=== PATIENT | male | born 1945 | race Hispanic/Latino ===

== ENCOUNTER 2019-12-04 11:40 | Emergency (ER) | payer OTHER ==
--- OUTSIDE RECORDS SUMMARY | 2019-12-04 11:43 | XMS REPORT ---
:1945 [facility] Address [address] [place] [address] Care Team Providers Name Role Phone Unavailable Unavailable Unavailable Payers Payer Name Policy Type Policy Number Effective Date Expiration Date Problems This patient has no known problems. Allergies, Adverse Reactions, Alerts Allergy Allergy Status Severity Reaction(s) Onset Inactive Treating Comments Name Type Date Date Clinician No Known DA Active U 2019-01 Allergies 00:00:0 0 Medications This patient has no known medications. Results Test Description Test Time Test Comments Text Results Atomic Results Result Comments BASIC METABOLIC PANEL 2019-01-12 06:15:00 Test Item Value Reference Range Comments SODIUM (test code=NA) 139 mmol/L 134-147 POTASSIUM (test code=K) 4.2 mmol/L 3.4-5.0 CHLORIDE (test code=CL) 108 mmol/L 100-108 CARBON DIOXIDE (test code=CO2) 25 mmol/L 21-32 ANION GAP (test code=GAP) 6.0 GAP calc 4.0-15.0 GLUCOSE (test code=GLU) 105 MG/DL 70-110 BLOOD UREA NITROGEN (test code=BUN) 31 MG/DL 7-18 GLOMERULAR FILTRATION RATE (test code=GFR) 53 estGFR >60 CREATININE (test code=CREAT) 1.4 MG/DL 0.8-1.3 CALCIUM (test code=CA) 8.6 MG/DL 8.5-10.1 CBC W/AUTO [id number] 06:07:00 Test Item Value Reference Range Comments WHITE BLOOD CELL (test code=WBC) 9.6 K/mm3 3.5-11.0 RED BLOOD CELL (test code=RBC) 4.14 M/mm3 4.70-6.10 HEMOGLOBIN (test code=HGB) 12.8 G/DL 12.3-15.9 HEMATOCRIT (test code=HCT) 40.0 % 35.8-46.7 MEAN CELL VOLUME (test code=MCV) 96.6 Fl 86.3-98.9 MEAN CELL HGB (test code=MCH) 30.9 pg 28.9-34.4 MEAN CELL HGB CONCETRATION (test code=MCHC) 32.0 G/DL 32.1-34.5 RED CELL DISTRIBUTION WIDTH (test code=RDW) 14.1 SD 11.5-14.5 PLATELET COUNT (test code=PLT) 212.0 K/mm3 150-450 MEAN PLATELET VOLUME (test code=MPV) 10.20 fL 7.0-9.6 NEUTROPHIL % (test code=NT%) 77.8 % 40-76 LYMPHOCYTE % (test code=LY%) 9.6 % 20.5-51.1 MONOCYTE % (test code=MO%) 10.9 % 1.7-9.3 EOSINOPHIL % (test code=EO%) 1.5 % 0.0-6.0 BASOPHIL % (test code=BA%) 0.2 % 0.0-2.0 NEUTROPHIL # (test code=NT#) 7.43 K/mm3 1.8-7.6 LYMPHOCYTE # (test code=LY#) 0.9 K/mm3 0.6-3.0 MONOCYTE # (test code=MO#) 1.0 K/mm3 0.2-1.5 EOSINOPHIL # (test code=EO#) 0.1 K/mm3 0.0-0.4 BASOPHIL # (test code=BA#) 0.0 K/mm3 0.0-0.2 MANUAL DIFF REQUIRED (test code=MDIFF) NO DIFF/SCN CRITERIA CBC W/AUTO [id number] 06:38:00 Test Item Value Reference Range Comments WHITE BLOOD CELL (test 12.1 K/mm3 3.5-11.0 code=WBC) RED BLOOD CELL (test code=RBC) 4.34 M/mm3 4.70-6.10 HEMOGLOBIN (test code=HGB) 13.5 G/DL 12.3-15.9 HEMATOCRIT (test code=HCT) 41.6 % 35.8-46.7 MEAN CELL VOLUME (test 95.9 Fl 86.3-98.9 code=MCV) MEAN CELL HGB (test code=MCH) 31.1 pg 28.9-34.4 MEAN CELL HGB CONCETRATION 32.5 G/DL 32.1-34.5 (test code=MCHC) RED CELL DISTRIBUTION WIDTH 13.9 SD 11.5-14.5 (test code=RDW) PLATELET COUNT (test code=PLT) 219.0 K/mm3 150-450 MEAN PLATELET VOLUME (test 9.90 fL 7.0-9.6 code=MPV) NEUTROPHIL % (test code=NT%) 86.9 % 40-76 LYMPHOCYTE % (test code=LY%) 4.4 % 20.5-51.1 MONOCYTE % (test code=MO%) 8.4 % 1.7-9.3 EOSINOPHIL % (test code=EO%) 0.2 % 0.0-6.0 BASOPHIL % (test code=BA%) 0.1 % 0.0-2.0 NEUTROPHIL # (test code=NT#) 10.52 K/mm3 1.8-7.6 LYMPHOCYTE # (test code=LY#) 0.5 K/mm3 0.6-3.0 MONOCYTE # (test code=MO#) 1.0 K/mm3 0.2-1.5 EOSINOPHIL # (test code=EO#) 0.0 K/mm3 0.0-0.4 BASOPHIL # (test code=BA#) 0.0 K/mm3 0.0-0.2 MANUAL DIFF REQUIRED (test NO DIFF/SCN CRITERIA SLIDE REVIEW CONSISTANT code=MDIFF) WITH AUTO DIFFERENTIAL. BASIC METABOLIC [id number] 05:41:00 Test Item Value Reference Range Comments SODIUM (test code=NA) 140 mmol/L 134-147 POTASSIUM (test code=K) 4.5 mmol/L 3.4-5.0 CHLORIDE (test code=CL) 110 mmol/L 100-108 CARBON DIOXIDE (test code=CO2) 24 mmol/L 21-32 ANION GAP (test code=GAP) 6.0 GAP calc 4.0-15.0 GLUCOSE (test code=GLU) 124 MG/DL 70-110 BLOOD UREA NITROGEN (test code=BUN) 25 MG/DL 7-18 GLOMERULAR FILTRATION RATE (test >=60 max estimate estGFR >60 code=GFR) CREATININE (test code=CREAT) 1.2 MG/DL 0.8-1.3 CALCIUM (test code=CA) 8.6 MG/DL 8.5-10.1 CBC W/AUTO [id number] 05:35:00 Test Item Value Reference Range Comments WHITE BLOOD CELL (test code=WBC) 12.1 K/mm3 3.5-11.0 RED BLOOD CELL (test code=RBC) 4.34 M/mm3 4.70-6.10 HEMOGLOBIN (test code=HGB) 13.5 G/DL 12.3-15.9 HEMATOCRIT (test code=HCT) 41.6 % 35.8-46.7 MEAN CELL VOLUME (test code=MCV) 95.9 Fl 86.3-98.9 MEAN CELL HGB (test code=MCH) 31.1 pg 28.9-34.4 MEAN CELL HGB CONCETRATION (test code=MCHC) 32.5 G/DL 32.1-34.5 RED CELL DISTRIBUTION WIDTH (test code=RDW) 13.9 SD 11.5-14.5 PLATELET COUNT (test code=PLT) 219.0 K/mm3 150-450 MEAN PLATELET VOLUME (test code=MPV) 9.90 fL 7.0-9.6 NEUTROPHIL % (test code=NT%) % 40-76 LYMPHOCYTE % (test code=LY%) % 20.5-51.1 MONOCYTE % (test code=MO%) % 1.7-9.3 EOSINOPHIL % (test code=EO%) % 0.0-6.0 BASOPHIL % (test code=BA%) % 0.0-2.0 NEUTROPHIL # (test code=NT#) K/mm3 1.8-7.6 LYMPHOCYTE # (test code=LY#) K/mm3 0.6-3.0 MONOCYTE # (test code=MO#) K/mm3 0.2-1.5 EOSINOPHIL # (test code=EO#) K/mm3 0.0-0.4 BASOPHIL # (test code=BA#) K/mm3 0.0-0.2 MANUAL DIFF REQUIRED (test code=MDIFF) DIFF/SCN CRITERIA COAGULATION TIME [id number] 21:35:00 Test Item Value Reference Range Comments COAGULATION TIME ACTIVATED (test code=ACT) 160 SECistat 74-125 COAGULATION TIME [id number] 20:17:00 Test Item Value Reference Range Comments COAGULATION TIME ACTIVATED (test code=ACT) 176 SECistat 74-125 CHEMISTRY 8 [id number] 18:59:00 Test Item Value Reference Range Comments ISTAT-SODIUM (test code=NAP) mmol/L 135-146 ISTAT-POTASSIUM (test code=KP) mmol/L 3.5-4.9 ISTAT-CHLORIDE (test code=CLP) mmol/L 98-109 ISTAT-CARBON DIOXIDE (test code=ISTAT-CO2) mmol/L 24-29 ISTAT CALCIUM IONIZED (test code=ISTAT-KATEY) mmol/L 1.12-1.32 ISTAT-GLUCOSE (test code=GLUP) mg/dL 70-105 ISTAT-BUN (test code=BUNP) mg/dL 8-26 BEDSIDE CREATININE (test code=CREATBED) mg/dL 0.6-1.3 GLOMERULAR FILTRATION RATE POC (test code=GFRBED) 63 42-98 CHEMISTRY 8 [id number] 18:59:00 Test Item Value Reference Range Comments ISTAT-SODIUM (test code=NAP) 142 mmol/L 135-146 ISTAT-POTASSIUM (test code=KP) 5.5 mmol/L 3.5-4.9 ISTAT-CHLORIDE (test code=CLP) 102 mmol/L 98-109 ISTAT-CARBON DIOXIDE (test code=ISTAT-CO2) 28 mmol/L 24-29 ISTAT CALCIUM IONIZED (test code=ISTAT-KATEY) 1.32 mmol/L 1.12-1.32 ISTAT-GLUCOSE (test code=GLUP) 165 mg/dL 70-105 ISTAT-BUN (test code=BUNP) 27 mg/dL 8-26 BEDSIDE CREATININE (test code=CREATBED) 1.2 mg/dL 0.6-1.3 GLOMERULAR FILTRATION RATE POC (test 63 42-98 code=GFRBED) [id number] 18:30:00 Test Item Value Reference Range Comments TROPONIN-I (test 38.700 NG/ML 0.000-0.045 Negative: </=0.045 Positive: code=TROPI) >/=0.046 Correlation with serial results, other cardiac markers, and clinical findings is necessary to determine the clinical significance of this result. Quantitative results using different methodologies should not be compared to one another as numerical results may varyby method. Completed by Nursing: NOBASIC METABOLIC [id number] 18:18:00 Test Item Value Reference Range Comments SODIUM (test code=NA) 141 mmol/L 134-147 POTASSIUM (test code=K) 4.4 mmol/L 3.4-5.0 CHLORIDE (test code=CL) 110 mmol/L 100-108 CARBON DIOXIDE (test code=CO2) 25 mmol/L 21-32 ANION GAP (test code=GAP) 6.0 GAP calc 4.0-15.0 GLUCOSE (test code=GLU) 132 MG/DL 70-110 BLOOD UREA NITROGEN (test code=BUN) 23 MG/DL 7-18 GLOMERULAR FILTRATION RATE (test >=60 max estimate estGFR >60 code=GFR) CREATININE (test code=CREAT) 1.2 MG/DL 0.8-1.3 CALCIUM (test code=CA) 8.5 MG/DL 8.5-10.1 COAGULATION TIME [id number] 16:25:00 Test Item Value Reference Range Comments COAGULATION TIME ACTIVATED (test code=ACT) 261 SECistat 74-125 HEPATIC FUNCTION [id number] 15:23:00 Test Item Value Reference Range Comments TOTAL PROTEIN (test code=PROT) 8.6 G/DL 6.4-8.2 ALBUMIN (test code=ALB) 3.8 G/DL 3.4-5.0 BILIRUBIN TOTAL (test code=BILT) 0.50 MG/DL 0.2-1.2 BILIRUBIN DIRECT (test code=BILD) 0.20 MG/DL 0.00-0.30 BILIRUBIN INDIRECT (test code=BILIND) 0.30 MG/DL 0.2-1.2 SGOT/AST (test code=AST) 18 Unit/L 15-37 SGPT/ALT (test code=ALT) 21 Unit/L 12-78 ALKALINE PHOSPHATASE TOTAL (test code=ALKP) 66 Unit/L 50-136 PROTHROMBIN [id number] 15:20:00 Test Item Value Reference Range Comments PT PATIENT (test code=PTP) 13.3 SECONDS 9.3-12.9 INTERNATIONAL NORMAL RATIO (test code=INR) 1.15 INR Unit 0.8-1.2 CBC W/AUTO [id number] 15:09:00 Test Item Value Reference Range Comments WHITE BLOOD CELL (test code=WBC) 11.4 K/mm3 3.5-11.0 RED BLOOD CELL (test code=RBC) 5.30 M/mm3 4.70-6.10 HEMOGLOBIN (test code=HGB) 16.3 G/DL 12.3-15.9 HEMATOCRIT (test code=HCT) 50.6 % 35.8-46.7 MEAN CELL VOLUME (test code=MCV) 95.5 Fl 86.3-98.9 MEAN CELL HGB (test code=MCH) 30.8 pg 28.9-34.4 MEAN CELL HGB CONCETRATION (test code=MCHC) 32.2 G/DL 32.1-34.5 RED CELL DISTRIBUTION WIDTH (test code=RDW) 14.0 SD 11.5-14.5 PLATELET COUNT (test code=PLT) 242.0 K/mm3 150-450 MEAN PLATELET VOLUME (test code=MPV) 10.10 fL 7.0-9.6 NEUTROPHIL % (test code=NT%) 84.2 % 40-76 LYMPHOCYTE % (test code=LY%) 9.2 % 20.5-51.1 MONOCYTE % (test code=MO%) 5.7 % 1.7-9.3 EOSINOPHIL % (test code=EO%) 0.7 % 0.0-6.0 BASOPHIL % (test code=BA%) 0.2 % 0.0-2.0 NEUTROPHIL # (test code=NT#) 9.61 K/mm3 1.8-7.6 LYMPHOCYTE # (test code=LY#) 1.1 K/mm3 0.6-3.0 MONOCYTE # (test code=MO#) 0.7 K/mm3 0.2-1.5 EOSINOPHIL # (test code=EO#) 0.1 K/mm3 0.0-0.4 BASOPHIL # (test code=BA#) 0.0 K/mm3 0.0-0.2 MANUAL DIFF REQUIRED (test code=MDIFF) NO DIFF/SCN CRITERIA TROPONIN I [id number] 15:06:00 Test Item Value Reference Range Comments TROPONIN I RAPID (test 0.06 ng/mL 0.00-0.08 - The use of serial sampling code=TROPIRAP) and testing protocol is a recommended practice- An elevated troponin level alone is often not sufficient for diagnosis of myocardial infarction. - XR CHEST 1 [id number] 14:59:00 Name: PRICILA EDWARDS [place] : 1945 Age/S: 73 / M [id number] Unit #: [id number] Loc: [place] [address] Phys: Nate Mobley MD Acct: [id number] Dis Date: Status: PRE ER PHONE #: [phone] Exam Date: 01/10/2019 1456 FAX #: Reason: weakness, STEMI EXAMS: CPT: [id number] XR CHEST 1 V [id number] Fluoro Time: DAP (Gy m2): Air Kerma (mGy): Single View Chest. Location: B2 Clinical Indication: 73-year-old with weakness and has T elevation [place] Comparison: None Findings: An AP view of the chest was obtained. The heart is enlarged. There is prominence of the vascular pedicle, particularly its right, paratracheal aspect. There is mild prominence of the central vasculature. No pneumothorax. No obvious pleural effusion. No acute osseous abnormality. Impression: 1. Cardiomegaly and mild central vascular prominence/congestion. 2. Prominence of the vascular pedicle is noted. This could potentially be the result of aortic tortuosity, ectasia, or aneurysm. Mediastinal mass is also a consideration. This may be better characterized with contrast-enhanced CT. at 4337 Reported and signed by: Blake Scott M.D. CC : Nate Mobley MD PAGE 1 Signed Report Name: PRICILA EDWARDS [place] : 1945 Age/S: 73 / M [id number] Unit #: [id number] Loc: [place] [address] Phys: Nate Mobley MD Acct: [id number] Dis Date: Status: PRE ER PHONE # : [phone] Exam Date: 01/10/2019 5774 FAX #: Reason: weakness, STEMI EXAMS: CPT: [id number] XR CHEST 1 V [id number] Fluoro Time: DAP (Gy m2): Air Kerma ( mGy): <Continued> Technologist: Nahomy Rivas, RT(R); ... Trnscb Date/Time: 01/10/2019 (0039) [email or web address] Orig Print D/T: S: 01/10/2019 (7610) PAGE 2 Signed Report
--- NOTE | 2019-12-04 12:08 | EDPHYS ---
Physician Documentation [facility] Name: Ag Goss Age: 73 yrs Sex: Male : 1945 Arrival Date: 12/04/2019 Time: 11:43 Bed 24 Private MD: ED Physician Sergio Alejo HPI: 12/03 12:26 This 73 yrs old Male presents to ER via Unassigned with complaints of Mouth snw Problem. 12:26 The patient presents with broken tooth/teeth, pain, swelling. The problem is located in snw the upper left first molar, upper left second molar, lower left third molar, lower left second molar and lower left first molar. Onset: The symptoms/episode began/occurred gradually, 3 day(s) ago, and became worse and became persistent. Duration: The symptoms are continuous. Severity of symptoms: At their worst the symptoms were moderate. It is unknown whether or not the patient has had similar symptoms in the past. It is unknown whether or not the patient has recently seen a physician. needs to see dental surgery as soon as possible. Historical: - Allergies: 12:00 No Known Allergies; vc - PMHx: 12:00 None; vc - PSHx: 12:00 None; vc - Immunization history:: Adult Immunizations up to date. - Social history:: Smoking status: Patient denies any tobacco usage or history of. ROS: 12:25 Constitutional: Negative for fever, chills, and weight loss, Eyes: Negative for injury, snw pain, redness, and discharge, Neck: Negative for injury, pain, and swelling, Cardiovascular: Negative for chest pain, palpitations, and edema, Respiratory: Negative for shortness of breath, cough, wheezing, and pleuritic chest pain, Abdomen/GI: Negative for abdominal pain, nausea, vomiting, diarrhea, and constipation, Back: Negative for injury and pain, : Negative for injury, bleeding, discharge, and swelling, MS/Extremity: Negative for injury and deformity, Skin: Negative for injury, rash, and discoloration, Neuro: Negative for headache, weakness, numbness, tingling, and seizure, Psych: Negative for depression, anxiety, suicide ideation, homicidal ideation, and hallucinations. 12:25 ENT: Positive for dental pain, Teeth pain left mandibular edema. Exam: 12:17 Constitutional: This is a well developed, well nourished patient who is awake, alert, snw and in no acute distress. Eyes: Pupils equal round and reactive to light, extra-ocular motions intact. Lids and lashes normal. Conjunctiva and sclera are non-icteric and not injected. Cornea within normal limits. Periorbital areas with no swelling, redness, or edema. Neck: Trachea midline, no thyromegaly or masses palpated, and no cervical lymphadenopathy. Supple, full range of motion without nuchal rigidity, or vertebral point tenderness. No Meningismus. Chest/axilla: Normal chest wall appearance and motion. Nontender with no deformity. No lesions are appreciated. Cardiovascular: Regular rate and rhythm with a normal S1 and S2. No gallops, murmurs, or rubs. Normal PMI, no JVD. No pulse deficits. Respiratory: Lungs have equal breath sounds bilaterally, clear to auscultation and percussion. No rales, rhonchi or wheezes noted. No increased work of breathing, no retractions or nasal flaring. Abdomen/GI: Soft, non-tender, with normal bowel sounds. No distension or tympany. No guarding or rebound. No evidence of tenderness throughout. Back: No spinal tenderness. No costovertebral tenderness. Full range of motion. Skin: Warm, dry with normal turgor. Normal color with no rashes, no lesions, and no evidence of cellulitis. 12:17 MS/ Extremity: Pulses equal, no cyanosis. Neurovascular intact. Full, normal range of motion. Neuro: Awake and alert, GCS 15, oriented to person, place, time, and situation. Cranial nerves II-XII grossly intact. Motor strength 5/5 in all extremities. Sensory grossly intact. Cerebellar exam normal. Normal gait. 12:17 Head/face: Noted is swelling, that is moderate, of the left jaw. 12:17 ENT: TM's: are normal, Nose: is normal, Mouth: is normal, Posterior pharynx: is normal, Dental exam: dental caries, that is moderate, that is severe, diffusely, gum swelling, that is mild, left mandibular edema and molar decay to gingiva., Voice: is normal. Vital Signs: 12:11 BP 142 / 101; Pulse 96; Resp 16; Temp 98.8(O); Pulse Ox 96% ; lt1 12:31 BP 139 / 86; Pulse 92; vc MDM: 11:59 Patient medically screened. snw 12:26 Data reviewed: vital signs, nurses notes. Data interpreted: Pulse oximetry: on room air snw is 96 %. Interpretation: acceptable. Counseling: I had a detailed discussion with the patient and/or guardian regarding: the historical points, exam findings, and any diagnostic results supporting the discharge/admit diagnosis, the need for outpatient follow up, to return to the emergency department if symptoms worsen or persist or if there are any questions or concerns that arise at home. Special discussion: Based on the history and exam findings, there is no indication for further emergent testing or inpatient evaluation. I discussed with the patient/guardian the need to see a dentist for further evaluation of the symptoms. Administered Medications: 12:24 Drug: [place] 5 mg-325 mg 1 tabs Route: PO; vc 12:25 Follow up: Response: No adverse reaction; Medication administered at discharge. vc 12:24 Drug: Clindamycin 300 mg Route: PO; vc 12:25 Follow up: Response: No adverse reaction; Medication administered at discharge. vc Disposition: 14:37 Co-signature as Attending Physician, Sergio Alejo MD. rn Disposition: 12/04/19 12:07 Discharged to Home. Impression: Dental caries, Unspecified diseases of pulp and periapical tissues. - Condition is Stable. - Discharge Instructions: Dental Abscess, Dental Pain, Edema, Diet and Dental Disease, Cryotherapy, Preventive Dental Care, Adult. - Prescriptions for chlorhexidine gluconate 0.12 % Mucous Membrane mouthwash - place 15 milliliter by MUCOUS MEMBRANE route 2 times per day after brushing teeth, swish in mouth for 30 seconds then spit out; 480 milliliter. Clindamycin HCl 300 mg Oral Capsule - take 1 capsule by ORAL route every 6 hours for 10 days; 40 capsule. Diclofenac Sodium 75 mg Oral Tablet Sustained Release - take 1 tablet by ORAL route 2 times per day; 30 tablet. - Medication Reconciliation Form, Thank You Letter, Antibiotic Education, Prescription Opioid Use form. - Follow up: Emergency Department; When: As needed; Reason: Worsening of condition. Follow up: Private Physician; When: 2 - 3 days; Reason: Recheck today's complaints, Continuance of care, Re-evaluation by your physician. Signatures: Marlee Arenas FNP-C BANKING REPRESENTATIVE-Csnw Sergio Alejo MD MD rn Zabrina Nicole RN RN vc Corrections: (The following items were deleted from the chart) 12:32 12:07 12/04/2019 12:07 Discharged to Home. Impression: Dental caries; Unspecified vc diseases of pulp and periapical tissues. Condition is Stable. Forms are Medication Reconciliation Form, Thank You Letter, Antibiotic Education, Prescription Opioid Use. Follow up: Emergency Department; When: As needed; Reason: Worsening of condition. Follow up: Private Physician; When: 2 - 3 days; Reason: Recheck today's complaints, Continuance of care, Re-evaluation by your physician. snw
[2019-12-04] MEDS ORDERED: HYDROCODONE/APAP 5/325 MG TAB ONE (12:25)
--- NOTE | 2019-12-04 12:33 | ER ---
Nurse's Notes [facility] Name: Ag Goss Age: 73 yrs Sex: Male : 1945 Arrival Date: 12/04/2019 Time: 11:43 Bed 24 Private MD: Diagnosis: Dental caries;Unspecified diseases of pulp and periapical tissues Presentation: 12/03 12:00 Chief complaint: Patient states: "The left side of my mouth hurts.". Coronavirus vc screen: Patient denies fever greater than 100.4F, cough, shortness of breath, or difficulty breathing. Ebola Screen: No symptoms or risks identified at this time. Initial Sepsis Screen: Does the patient meet any 2 criteria? No. Patient's initial sepsis screen is negative. Does the patient have a suspected source of infection? Yes: Other: tooth. Risk Assessment: Do you want to hurt yourself or someone else? Patient reports no desire to harm self or others. 12:00 Acuity: JANAE 4 vc 12:00 Method Of Arrival: Ambulatory vc Triage Assessment: 12:00 General: Appears in no apparent distress. Behavior is calm, cooperative, appropriate vc for age. Pain: Complains of pain in lower left first molar and lower left second molar and lower left third molar and upper left second molar and upper left first molar. EENT: Reports pain. Neuro: Level of Consciousness is awake, alert, obeys commands, Oriented to person, place, time, situation. Cardiovascular: Capillary refill < 3 seconds Patient's skin is warm and dry. Respiratory: Respiratory effort is even, unlabored, Respiratory pattern is regular, symmetrical. Historical: - Allergies: 12:00 No Known Allergies; vc - PMHx: 12:00 None; vc - PSHx: 12:00 None; vc - Immunization history:: Adult Immunizations up to date. - Social history:: Smoking status: Patient denies any tobacco usage or history of. Screenin:00 Abuse screen: Denies threats or abuse. Nutritional screening: No deficits noted. vc Tuberculosis screening: No symptoms or risk factors identified. Fall Risk None identified. Assessment: 12:00 General: Appears in no apparent distress. uncomfortable, Behavior is calm, cooperative, vc appropriate for age. Pain: Complains of pain in lower left first molar and lower left second molar and lower left third molar and upper left second molar and upper left first molar. Neuro: Level of Consciousness is awake, alert, obeys commands. Cardiovascular: Capillary refill < 3 seconds Patient's skin is warm and dry. Respiratory: Airway is patent Respiratory pattern is regular, symmetrical. EENT: No signs and/or symptoms were reported regarding the EENT system. Vital Signs: 12:11 BP 142 / 101; Pulse 96; Resp 16; Temp 98.8(O); Pulse Ox 96% ; lt1 12:31 BP 139 / 86; Pulse 92; vc ED Course: 11:43 Patient arrived in ED. ag5 11:55 Marlee Arenas FNP-C is [facility]. snw 11:55 Sergio Alejo MD is Attending Physician. snw 12:00 Arm band placed on. vc 12:01 Zabrina Nicole, RN is Primary Nurse. vc 12:30 No provider procedures requiring assistance completed. Patient did not have IV access vc during this emergency room visit. 20:12 Triage completed. vc Administered Medications: 12:24 Drug: [place] 5 mg-325 mg 1 tabs Route: PO; vc 12:25 Follow up: Response: No adverse reaction; Medication administered at discharge. vc 12:24 Drug: Clindamycin 300 mg Route: PO; vc 12:25 Follow up: Response: No adverse reaction; Medication administered at discharge. vc Outcome: 12:07 Discharge ordered by . snw 12:30 Discharged to home ambulatory. vc 12:30 Condition: good 12:30 Discharge instructions given to patient, Instructed on discharge instructions, follow up and referral plans. medication usage, Demonstrated understanding of instructions, follow-up care, medications, Prescriptions given X 3. 12:32 Patient left the ED. vc Signatures: Marlee Arenas FNP-C DATABASE REPORTING CONSULTANT-Csnw Wanda Lemus ag5 Elmira Nickerson lt1 Zabrina Nicole, RN RN vc
[2019-12-04 12:36] VITALS: TEMP 98.8; O2SAT 96
[2019-12-04 12:37] VITALS: BP 139/86
== END 2019-12-04 12:32 | disposition home or self-care (01) ==
LOC: ER 11:40
DX: K04.90 Unspecified diseases of pulp and periapical tissues (principal)
CPT/HCPCS: 99283

== ENCOUNTER 2025-01-27 15:57 | Emergency (ER) | payer OTHER ==
--- OUTSIDE RECORDS SUMMARY | 2025-01-27 16:01 | XMS REPORT | Continuity of Care Document ---
Author Name Unknown Address [address] [facility] [address] [place] [address] Organization [facility] Address [address] 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 Name Role Phone Yao Thao Primary Care Physician [phone] Romeo Jeronimo Attending Clinician Unavailable Aydee Esquivel Attending Clinician Unavailable GLYNN MCDONALD Attending Clinician Unavail able Nurse, Adc Pob Immunization Attending Clinician Unavailable Glynn Mcdonald DO Attending Clinician [phone] CHONG ISLAS Attending Clinician Unavailable Payers Payer Name Policy Type Policy Number Effective Date Expirati on Date Source MEDICARE PART A \T\ [id number] 2009 00:00:00 [place]ICAID [place] [id number] 2011 00:00:00 Problems Condition Name Condition Details Condition Category Status Onset Date Resolution Date Last Treatment Date Treating Clinician Comments Source [id number] Essential hypertensi on Problem [facility] [id number] Coronary artery disease involving [place] coronary artery of [place] heart without angina pectoris Problem [facility] Allergies, Adverse Reactions, Alerts Allergy Name Allergy Type Status Severity Reaction(s) Onset Date Inactive Date Treating Clinician Comments Source No Known Allergie s DA Active U 01-10 00:00: 00 [facility] NO KNOWN ALLERGIE S Drug Class Active [facility] [id number] Drug allergy Active Unknown [facility] pork allergen ic extract pork allergen ic extract Active Unknown [facility] Social History Social Habit Start Date Stop Date Quantity Comments Source Sex Assigned At [facility] History of Tobacco Use 1995-09-10 00:00:00 [facility] Smoking Status Start Date Stop Date Source Never Smoker [facility] Former Smoker 2024-11-14 00:00:00 2024-11-14 00:00:00 [facility] Unknown if ever smoked [facility] Medications Ordered Medication Name Filled Medication Name Start Date Stop Date Current Medication? Ordering Clinician Indication Dosage Frequency Signature (SIG) Comments Components Source Furosemide 20 MG Furosemide 20 MG 12-13 00:00: 00 No 1{table t} QD Furosemide 20 MG OMEGA-3 FATTY ACIDS/FISH OIL (OMEGA 3 FISH OIL ORAL) 03-10 10:58: 18 Yes Take by mouth. [facility] Cetirizine (ZYRTEC) 10 mg capsule 03-10 10:58: 18 Yes 10mg Take 10 mg by mouth. [facility] metoprolol succinate XL (TOPROL XL) 50 mg 24 hr tablet 03-10 10:58: 18 Yes 50mg Take 50 mg by mouth daily. [facility] diclofenac sodium (PENNSAID) 20 mg/gram /actuation( 2 %) sopm 03-10 10:58: 18 Yes Apply to area(s). [facility] traMADOL (ULTRAM) 50 mg tablet 03-10 10:58: 18 Yes 50mg Take 50 mg by mouth every 6 (six) hours as needed. [facility] rivaroxaban (XARELTO) 20 mg tablet 03-10 10:58: 18 Yes 20mg Take 20 mg by mouth. [facility] amLODIPine Besylate 5 MG amLODIPine Besylate 5 MG No 1{table t} QD amLODIPine Besylate 5 MG Losartan Potassium 25 MG Losartan Potassium 25 MG No Losartan Potassium 25 MG Aspirin 81 Aspirin 81 No Aspirin 81 Metoprolol Succinate ER 100 MG Metoprolol Succinate ER 100 MG No 1{table t} QD Metoprolol Succinate ER 100 MG Vital Signs Vital Name Observation Time Observation Value Comments S felisha height 2024-12-13 11:45:00 68 [in_i] Commo n [facility] weight 2024-12-13 11:45:00 217.6 [lb_av] Co [facility] temperature 2024-12-13 11:45:00 97.4 [degF] Com [facility] bmi 2024-12-13 11:45:00 33.08 kg/m2 Comm on [facility] oximetry 2024-12-13 11:45:00 92 % Commo n [facility] blood pressure systolic 2024-12-13 11:45:00 146 mm[Hg] Common [facility] blood pressure diastolic 2024-12-13 11:45:00 88 mm[Hg] [facility] height 2024-11-14 14:45:00 68 [in_i] Commo n [facility] weight 2024-11-14 14:45:00 220.6 [lb_av] Co [facility] temperature 2024-11-14 14:45:00 97.5 [degF] Com [facility] bmi 2024-11-14 14:45:00 33.54 kg/m2 Comm on [facility] oximetry 2024-11-14 14:45:00 95 % Commo n [facility] blood pressure systolic 2024-11-14 14:45:00 137 mm[Hg] Common [facility] blood pressure diastolic 2024-11-14 14:45:00 76 mm[Hg] [facility] Procedures Procedure Date / Time Performed Performing Clinicia n Source SARS-COV-2 COVID-19 VACCINE,0.3ML,IM (PFIZER) 2021-06-14 20:23:51 Doctor Unassigned, [place] [facility] Encounters Start Date/Time End Date/Time Encounter Type Admission Type Attending Clinicians Care Facility Care Department Encounter ID Source 2024-12-11 14:44:01 Outpatient Romeo Jeronimo STLMLC STLC [id number] [facility] 2024-11-14 14:51:01 Outpatient Aydee Esquivel ST[facility] [id number] [facility] 2025-01-23 00:00:00 2025-01-23 00:00:00 (TEL) STLMLC STLMLC [id number] [facility] 2024-12-13 00:00:00 2024-12-13 00:00:00 OFFICE VISIT ESTAB PT LEVEL 4 STLMLC STLMLC [id number] [facility] 2024-12-02 00:00:00 2024-12-02 00:00:00 (TEL) STLMLC STLMLC [id number] [facility] 2024-11-14 00:00:00 2024-11-14 00:00:00 OFFICE VISIT NEW PT LEVEL 4 STLMLC STLMLC [id number] [facility] 2021-06-14 15:30:00 2021-06-14 15:30:00 Outpatient GLYNN CARMONA [facility] [id number] [facility] 2021-06-14 15:20:53 2021-06-14 15:21:02 Imm/Inj Visit Nurse, Ld [place] [facility] [id number] [facility] [id number] [facility] 2020-11-23 13:10:00 2020-11-23 13:10:00 Outpatient CHONG TOWNSEND [facility] [id number] [facility] 2020-11-23 13:10:00 2020-11-23 13:10:00 Outpatient CHONG TOWNSEND [facility] [id number] [facility] 2020-11-02 10:10:00 2020-11-02 10:10:00 Outpatient [facility] [id number] [facility] 2020-11-02 10:10:00 2020-11-02 10:10:00 Outpatient CHONG TOWNSEND [facility] [id number] [facility] Results Test Description Test Time Test Comments Results Result Co mments Source CBC W/AUTO [id number] 06:07:00* Test Item Value Reference Range Interpretation Comme nts WHITE BLOOD CELL (test code = WBC) 9.6 K/mm3 3.5-11.0 N RED BLOOD CELL (test code = RBC) 4.14 M/mm3 4.70-6.10 L HEMOGLOBIN (test code = HGB) 12.8 G/DL 12.3-15.9 N HEMATOCRIT (test code = HCT) 40.0 % 35.8-46.7 N MEAN CELL VOLUME (test code = MCV) 96.6 Fl 86.3-98.9 N MEAN CELL HGB (test code = MCH) 30.9 pg 28.9-34.4 N MEAN CELL HGB CONCETRATION ( test code = MCHC) 32.0 G/DL 32.1-34.5 L RED CELL DISTRIBUTION WIDTH (test code = RDW) 14.1 SD 11.5-14.5 N PLATELET COUNT (test code = PLT) 212.0 K/mm3 150-450 N MEAN PLATELET VOLUME (test c ode = MPV) 10.20 fL 7.0-9.6 H NEUTROPHIL % (test code = NT%) 77.8 % 40-76 H LYMPHOCYTE % (test code = LY%) 9.6 % 20.5-51.1 L MONOCYTE % (test code = MO%) 10.9 % 1.7-9.3 H EOSINOPHIL % (test code = EO%) 1.5 % 0.0-6.0 N BASOPHIL % (test code = BA%) 0.2 % 0.0-2.0 N NEUTROPHIL # (test code = NT#) 7.43 K/mm3 1.8-7.6 N LYMPHOCYTE # (test code = LY#) 0.9 K/mm3 0.6-3.0 N MONOCYTE # (test code = MO#) 1.0 K/mm3 0.2-1.5 N EOSINOPHIL # (test code = EO#) 0.1 K/mm3 0.0-0.4 N BASOPHIL # (test code = BA#) 0.0 K/mm3 0.0-0.2 N MANUAL DIFF REQUIRED (test c ode = MDIFF) NO DIFF/SCN CRITERIA CBC W/AUTO [id number] 06:38:00* Test Item Value Reference Range Interpretation Comme nts WHITE BLOOD CELL (test code = WBC) 12.1 K/mm3 3.5-11.0 H RED BLOOD CELL (test code = RBC) 4.34 M/mm3 4.70-6.10 L HEMOGLOBIN (test code = HGB) 13.5 G/DL 12.3-15.9 N HEMATOCRIT (test code = HCT) 41.6 % 35.8-46.7 N MEAN CELL VOLUME (test code = MCV) 95.9 Fl 86.3-98.9 N MEAN CELL HGB (test code = MCH) 31.1 pg 28.9-34.4 N MEAN CELL HGB CONCETRATION (test code = MCHC) 32.5 G/DL 32.1-34.5 N RED CELL DISTRIBUTION WIDTH (test code = RDW) 13.9 SD 11.5-14.5 N PLATELET COUNT (test code = PLT) 219.0 K/mm3 150-450 N MEAN PLATELET VOLUME (test code = MPV) 9.90 fL 7.0-9.6 H NEUTROPHIL % (test code = NT%) 86.9 % 40-76 H LYMPHOCYTE % (test code = LY%) 4.4 % 20.5-51.1 L MONOCYTE % (test code = MO%) 8.4 % 1.7-9.3 N EOSINOPHIL % (test code = EO%) 0.2 % 0.0-6.0 N BASOPHIL % (test code = BA%) 0.1 % 0.0-2.0 N NEUTROPHIL # (test code = NT#) 10.52 K/mm3 1.8-7.6 H LYMPHOCYTE # (test code = LY#) 0.5 K/mm3 0.6-3.0 L MONOCYTE # (test code = MO#) 1.0 K/mm3 0.2-1.5 N EOSINOPHIL # (test code = EO#) 0.0 K/mm3 0.0-0.4 N BASOPHIL # (test code = BA#) 0.0 K/mm3 0.0-0.2 N MANUAL DIFF REQUIRED (test code = MDIFF) NO DIFF/SCN CRITERIA SLIDE REVIEW CONSISTANT WITH AUTO DIFFERENTIAL. BASIC METABOLIC [id number] 05:41:00* Test Item Value Reference Range Interpretation Comme nts SODIUM (test code = NA) 140 mmol/L 134-147 N POTASSIUM (test code = K) 4.5 mmol/L 3.4-5.0 N CHLORIDE (test code = CL) 110 mmol/L 100-108 H CARBON DIOXIDE (test code = CO2) 24 mmol/L 21-32 N ANION GAP (test code = GAP) 6.0 GAP calc 4.0-15.0 N GLUCOSE (test code = GLU) 124 MG/DL 70-110 H BLOOD UREA NITROGEN (test code = BUN) 25 MG/DL 7-18 H GLOMERULAR FILTRATION RATE (test code = GFR) >=60 max estimate estGFR >60 CREATININE (test code = CREAT) 1.2 MG/DL 0.8-1.3 N CALCIUM (test code = CA) 8.6 MG/DL 8.5-10.1 N CBC W/AUTO [id number] 05:35:00* Test Item Value Reference Range Interpretation Comme nts WHITE BLOOD CELL (test code = WBC) 12.1 K/mm3 3.5-11.0 H RED BLOOD CELL (test code = RBC) 4.34 M/mm3 4.70-6.10 L HEMOGLOBIN (test code = HGB) 13.5 G/DL 12.3-15.9 N HEMATOCRIT (test code = HCT) 41.6 % 35.8-46.7 N MEAN CELL VOLUME (test code = MCV) 95.9 Fl 86.3-98.9 N MEAN CELL HGB (test code = MCH) 31.1 pg 28.9-34.4 N MEAN CELL HGB CONCETRATION ( test code = MCHC) 32.5 G/DL 32.1-34.5 N RED CELL DISTRIBUTION WIDTH (test code = RDW) 13.9 SD 11.5-14.5 N PLATELET COUNT (test code = PLT) 219.0 K/mm3 150-450 N MEAN PLATELET VOLUME (test c ode = MPV) 9.90 fL 7.0-9.6 H NEUTROPHIL % (test code = NT%) % 40-76 H LYMPHOCYTE % (test code = LY%) % 20.5-51.1 L MONOCYTE % (test code = MO%) % 1.7-9.3 N EOSINOPHIL % (test code = EO%) % 0.0-6.0 N BASOPHIL % (test code = BA%) % 0.0-2.0 N NEUTROPHIL # (test code = NT#) K/mm3 1.8-7.6 H LYMPHOCYTE # (test code = LY#) K/mm3 0.6-3.0 L MONOCYTE # (test code = MO#) K/mm3 0.2-1.5 N EOSINOPHIL # (test code = EO#) K/mm3 0.0-0.4 N BASOPHIL # (test code = BA#) K/mm3 0.0-0.2 N MANUAL DIFF REQUIRED (test c ode = MDIFF) DIFF/SCN CRITERIA COAGULATION TIME [id number] 21:35:00* Test Item Value Reference Range Interpretation Comme nts COAGULATION TIME ACTIVATED ( test code = ACT) 160 SECistat 74-125 H COAGULATION TIME [id number] 20:17:00* Test Item Value Reference Range Interpretation Comme nts COAGULATION TIME ACTIVATED ( test code = ACT) 176 SECistat 74-125 H CHEMISTRY 8 [id number] 18:59:00* Test Item Value Reference Range Interpretation Comme nts ISTAT-SODIUM (test code = NAP) mmol/L 135-146 ISTAT-POTASSIUM (test code = KP) mmol/L 3.5-4.9 ISTAT-CHLORIDE (test code = CLP) mmol/L 98-109 ISTAT-CARBON DIOXIDE (test c ode = ISTAT-CO2) mmol/L 24-29 N ISTAT CALCIUM IONIZED (test code = ISTAT-KATEY) mmol/L 1.12-1.32 ISTAT-GLUCOSE (test code = GLUP) mg/dL 70-105 H ISTAT-BUN (test code = BUNP) mg/dL 8-26 H BEDSIDE CREATININE (test cod e = CREATBED) mg/dL 0.6-1.3 N GLOMERULAR FILTRATION RATE P OC (test code = GFRBED) 63 42-98 N CHEMISTRY 8 [id number] 18:59:00* Test Item Value Reference Range Interpretation Comme nts ISTAT-SODIUM (test code = NAP) 142 mmol/L 135-146 N ISTAT-POTASSIUM (test code = KP) 5.5 mmol/L 3.5-4.9 H ISTAT-CHLORIDE (test code = CLP) 102 mmol/L 98-109 N ISTAT-CARBON DIOXIDE (test c ode = ISTAT-CO2) 28 mmol/L 24-29 N ISTAT CALCIUM IONIZED (test code = ISTAT-KATEY) 1.32 mmol/L 1.12-1.32 N ISTAT-GLUCOSE (test code = GLUP) 165 mg/dL 70-105 H ISTAT-BUN (test code = BUNP) 27 mg/dL 8-26 H BEDSIDE CREATININE (test cod e = CREATBED) 1.2 mg/dL 0.6-1.3 N GLOMERULAR FILTRATION RATE P OC (test code = GFRBED) 63 42-98 N [id number] 18:30:00* Test Item Value Reference Range Interpretation Comme nts TROPONIN-I (test code = TROPI) 38.700 NG/ML 0.000-0.045 Negative: </= 0. 045 Positive: >/= 0.046 Correlation with serial results, other cardiac markers, and clinical findings is necessary to determine the clinical significance of this result. Quantitative results using different methodologies should not be compared to one another as numerical results may varyby method. Completed by Nursing: [facility] METABOLIC [id number] 18:18:00* Test Item Value Reference Range Interpretation Comme nts SODIUM (test code = NA) 141 mmol/L 134-147 N POTASSIUM (test code = K) 4.4 mmol/L 3.4-5.0 N CHLORIDE (test code = CL) 110 mmol/L 100-108 H CARBON DIOXIDE (test code = CO2) 25 mmol/L 21-32 N ANION GAP (test code = GAP) 6.0 GAP calc 4.0-15.0 N GLUCOSE (test code = GLU) 132 MG/DL 70-110 H BLOOD UREA NITROGEN (test code = BUN) 23 MG/DL 7-18 H GLOMERULAR FILTRATION RATE (test code = GFR) >=60 max estimate estGFR >60 CREATININE (test code = CREAT) 1.2 MG/DL 0.8-1.3 N CALCIUM (test code = CA) 8.5 MG/DL 8.5-10.1 N COAGULATION TIME [id number] 16:25:00* Test Item Value Reference Range Interpretation Comme [facility] COAGULATION TIME ACTIVATED ( test code = ACT) 261 SECistat 74-125 H HEPATIC FUNCTION [id number] 15:23:00* Test Item Value Reference Range Interpretation Comme nts TOTAL PROTEIN (test code = PROT) 8.6 G/DL 6.4-8.2 H ALBUMIN (test code = ALB) 3.8 G/DL 3.4-5.0 N BILIRUBIN TOTAL (test code = BILT) 0.50 MG/DL 0.2-1.2 N BILIRUBIN DIRECT (test code = BILD) 0.20 MG/DL 0.00-0.30 N BILIRUBIN INDIRECT (test cod e = BILIND) 0.30 MG/DL 0.2-1.2 N SGOT/AST (test code = AST) 18 Unit/L 15-37 N SGPT/ALT (test code = ALT) 21 Unit/L 12-78 N ALKALINE PHOSPHATASE TOTAL ( test code = ALKP) 66 Unit/L 50-136 N PROTHROMBIN [id number] 15:20:00* Test Item Value Reference Range Interpretation Comme [facility] PT PATIENT (test code = PTP) 13.3 SECONDS 9.3-12.9 H INTERNATIONAL NORMAL RATIO (test code = INR) 1.15 INR Unit 0.8-1.2 N CBC W/AUTO [id number] 15:09:00* Test Item Value Reference Range Interpretation Comme nts WHITE BLOOD CELL (test code = WBC) 11.4 K/mm3 3.5-11.0 H RED BLOOD CELL (test code = RBC) 5.30 M/mm3 4.70-6.10 N HEMOGLOBIN (test code = HGB) 16.3 G/DL 12.3-15.9 H HEMATOCRIT (test code = HCT) 50.6 % 35.8-46.7 H MEAN CELL VOLUME (test code = MCV) 95.5 Fl 86.3-98.9 N MEAN CELL HGB (test code = MCH) 30.8 pg 28.9-34.4 N MEAN CELL HGB CONCETRATION ( test code = MCHC) 32.2 G/DL 32.1-34.5 N RED CELL DISTRIBUTION WIDTH (test code = RDW) 14.0 SD 11.5-14.5 N PLATELET COUNT (test code = PLT) 242.0 K/mm3 150-450 N MEAN PLATELET VOLUME (test c ode = MPV) 10.10 fL 7.0-9.6 H NEUTROPHIL % (test code = NT%) 84.2 % 40-76 H LYMPHOCYTE % (test code = LY%) 9.2 % 20.5-51.1 L MONOCYTE % (test code = MO%) 5.7 % 1.7-9.3 N EOSINOPHIL % (test code = EO%) 0.7 % 0.0-6.0 N BASOPHIL % (test code = BA%) 0.2 % 0.0-2.0 N NEUTROPHIL # (test code = NT#) 9.61 K/mm3 1.8-7.6 H LYMPHOCYTE # (test code = LY#) 1.1 K/mm3 0.6-3.0 N MONOCYTE # (test code = MO#) 0.7 K/mm3 0.2-1.5 N EOSINOPHIL # (test code = EO#) 0.1 K/mm3 0.0-0.4 N BASOPHIL # (test code = BA#) 0.0 K/mm3 0.0-0.2 N MANUAL DIFF REQUIRED (test c ode = MDIFF) NO DIFF/SCN CRITERIA TROPONIN I [id number] 15:06:00* Test Item Value Reference Range Interpretation Comme nts TROPONIN I RAPID (test code = TROPIRAP) 0.06 ng/mL 0.00-0.08 N - The use of ser ial sampling and testing protocol is a recommended practice- An elevated troponin level alone is often not sufficient for diagnosis of myocardial infarction. - XR CHEST 1 [id number] 14:59:00[facility]: [facility] [place] [facility] 1945 Age/S: 73 / M [id number] Unit #: [id number] Loc: [place] [address] Phys: Nate Mobley MD Acct: [id number] Dis Date: Status: PRE ER PHONE #: [phone] Exam Date: 01/10/2019 1455 FAX #: Reason: weakness, STEMI EXAMS: CPT: [id number] XR CHEST 1 V 61200 Fluoro Time: DAP (Gy m2): Air Kerma (mGy): Single View Chest. Location: B2 Clinical Indication: 73-year-old with weakness and has T elevation WI Comparison: None Findings: An AP view of [...] be better characterized with contrast-enhanced CT. at 1459 Reported and signed by: Blake Scott M.D. CC: Nate Mobley MD PAGE 1 Signed Report Name: [facility] [place] : 1945 Age/S: 73 / M [id number] [facility] Unit #: [id number] Loc: [place] [address] Phys: Nate Mobley MD Acct: [id number] Dis Date: Status: PRE ER PHONE #: [phone] Exam Date: 01/10/2019 1455 FAX #: Reason: weakness, STEMI EXAMS: CPT: [id number] XR CHEST 1 V 38280 Fluoro Time: DAP (Gy m2): Air Kerma (mGy): (Continued) Technologist: Nahomy Rivas, RT(R); ... Trnscb Date/Time: 01/10/2019 (1260) [email or web address] Orig Print D/T: S: 01/10/2019 (6837) PAGE 2 Signed Report Notes Date/Time Note Provider Source 2019-01-12 13:18:00 [id number] [place] [address] PATIENT NAME: AG EDWARDS ADMIT DATE: 01/10/19 ACCOUNT NO: [id number] ROOM NO: L.ICU05 AGE: 73 REPORT TYPE: eECHOCARDIOGRAM REPORT SEX: M ADMITTING PHYSICIAN: Sam Urrutia MD ATTENDING PHYSICIAN: Sam Urrutia MD PROCEDURE: Echocardiogram STUDY DATE: 01/11/2019 PROCEDURE: Echocardiogram. INTERPRETING PHYSICIAN: Te Chaudhary MD, interventional cardiology interpretation. MEASUREMENTS: By M-mode LA diameter was 3.9 cm, Aortic diameter 3.9 cm. TWO-D MEASUREMENTS: 1. Interventricular septum at end-diastole was 1.1 cm, left ventricular internal diameter at end-diastole was 4.4 cm, left ventricular posterior wall end-diastole was 1 cm. The left ventricular internal diameter at end-systole was 3.2 sq cm with ___ EF of 53%. 3. LVOT diameter 1.8 cm. Aortic valve Vmax was 1.3 m/sec, aortic valve VTI was 31.2 sq cm with a valve area of 1.6 sq m. TR Vmax was 1.8 m/sec. Mitral valve E velocity was 0.67 m/sec. Deceleration time was 197 milliseconds and aortic valve ____ was 1.06 m/sec, E:E prime ratio was 11.7 and MR Vmax was 4.29 m/sec. Pulmonary valve V-max was 0.62 m/sec. Rhythm was normal sinus rhythm. Study quality was adequate. 1. Left ventricle normal in size with normal wall thickness. Mild to moderately impaired left ventricular systolic function with left ventricular ejection fraction 40% to 44%. Diastolic filling pattern indicates impaired relaxation. 2. Left atrium normal in size. 3. Right ventricle normal in size and function. 4. Right atrium normal in size. 5. Aortic valve is trileaflet and appears structurally normal without evidence of stenosis or regurgitation. 6. Mitral valve: Normal-appearing. No evidence of thickening, mild mitral regurgitation. 7. Tricuspid valve appears structurally normal with mild tricuspid regurgitation. Insufficient TR jet to estimate PA systolic pressure. 8. Pulmonary valve appears structurally normal. 9. Pericardium without effusion. 10. Aorta size is normal. CONCLUSION: PATIENT NAME: AG EDWARDS 1. Left ventricle normal in size. 2. Left ventricular systolic function, mild to moderately impaired with left ventricular ejection fraction 40% to 44%. 3. Diastolic filling pattern indicates impaired relaxation. 4. Mild mitral regurgitation is present. 5. Mild tricuspid regurgitation is present. Dictated By: Te Chaudhary MD WT: ECHO:JOSÉ LUIS/BAILEY/CELIO Conf#: [id number]/DID#: [id number] at 1854 PATIENT NAME: AG EDWARDS [facility] 2019-01-12 13:14:00 [facility] ([facility]) Discharge Summary REPORT#:[id number] REPORT STATUS: Signed DATE:01/12/19 TIME:1314 PATIENT: AG EDWARDS UNIT #: [id number] ROOM/BED: [place] [address] : [birth year] AGE: 73 SEX: M ATTEND: Sam Urrutia MD ADM AUTHOR: Sam Urrutia MD * ALL edits or amendments must be made on the electronic/computer document * PCP PCP Discharge to: home General Information Problem List/A P: 1. 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 condition on discharge: improved, stable Med Rec Med Rec Discharge meds: Stop taking the following medications: METOPROLOL SUCC XL (TOPROL XL) 50 MG TAB.SA ORAL DAILY. Start taking the following new medications: TICAGRELOR (BRILINTA) 90 MG TAB 90 MILLIGRAM ORAL EVERY 12 HOURS. Qty = 60 No Refills ATORVASTATIN (LIPITOR) 40 MG TAB 80 MILLIGRAM ORAL DAILY AT 1700. Qty = 30 No Refills LISINOPRIL (ZESTRIL) 2.5 MG TAB 2.5 MILLIGRAM ORAL DAILY. Qty = 30 No Refills METOPROLOL SUCC XL (TOPROL XL) 25 MG TAB.SR.24H 12.5 MILLIGRAM ORAL DAILY. Qty = 30 No Refills ASPIRIN (ASPIRIN) 81 MG TAB.CHEW 81 MILLIGRAM ORAL DAILY. Qty = 30 No Refills Discharge Instructions Diet: cardiac Activity: as tolerated F/U labs/procedures/tests: pcp in 1 week, Dr han in 1-2 weeks Prescriptions: e-prescribe Discharge management: greater than 30 mins Objective VS/I O Last Documented: Result Date Time Pulse Ox 95 01/12 1200 B/P 119/63 01/12 1200 B/P Mean 85 01/12 1200 Temp 97.3 01/12 1200 Pulse 62 01/12 1200 Resp 19 01/12 1200 O2 Delivery Nasal cannula 01/12 0800 O2 Flow Rate 2.311692 / 0800 24 hour I O ending at 0700: 01/12 0700 01/11 1900 Intake Total 1300.00 Output Total 750 Balance 550.00 Intake, IV 350.00 Intake, Oral 550 Intake, Oral 400 Supplement Number 1 1 Bowel Movements Number 0 Incontinent Voids Number Voids 2 6 Output, Urine 750 Patient 215 lb Weight General appearance: alert ENT: normal nose Neck: full range of motion Cardiovascular: regular rate rhythm GI: soft Extremities: moves all at 1315 RPT #: [id number] END OF REPORT [facility] 2019-01-12 13:06:00 [facility] ([facility]) Cardiology Progress Note REPORT#:[id number] REPORT STATUS: Signed DATE:01/12/19 TIME:1306 PATIENT: AG EDWARDS UNIT #: [id number] ROOM/BED: [place] [id number] : 44 AGE: 73 SEX: M ATTEND: Sam Urrutia MD ADM AUTHOR: Te Bradley MD * ALL edits or amendments must be made on the electronic/computer document * Subjective HPI: Denies CP or SOB. Tolerating ambulation Objective General VS/I O: 24 hour I O ending at 0700: 01/12 0700 05 1900 Intake Total 1300.00 Output Total 750 Balance 550.00 Intake, IV 350.00 Intake, Oral 550 Intake, Oral 400 Supplement Number 1 1 Bowel Movements Number 0 Incontinent Voids Number Voids 2 6 Output, Urine 750 Patient 97.522 kg Weight Vital Signs: Date Time Temp Pulse Resp B/P B/P Pulse O2 O2 Flow FiO2 Mean Ox Delivery Rate 01/12 1200 97.3 62 19 119/63 85 95 05/04 1100 63 20 112/59 85 91 05/04 1030 67 22 106/55 78 95 05/04 1000 67 13 108/55 76 93 05/04 0931 75 23 112/66 84 95 05/04 0901 79 13 139/70 101 93 05/04 0830 74 20 118/60 84 94 05/04 0800 Nasal 2.724575 cannula 05/ 0800 59 21 112/67 84 93 05/04 0730 99.0 56 21 102/56 76 97 05/04 0701 54 27 95/55 71 94 05/04 0600 56 21 113/56 80 94 05/04 0530 58 23 109/61 80 94 05/04 0500 54 20 99/50 69 93 05/04 0428 56 25 96 05/04 0400 97.8 55 21 101/55 70 95 Nasal 2.213542 cannula 05/04 0330 55 20 97/55 73 94 05/04 0300 59 18 97/55 73 92 05/04 0230 62 22 99/57 74 94 05/04 0200 72 111/60 81 94 05/04 0131 60 21 107/56 76 95 05/04 0100 56 21 92/56 69 92 05/04 0030 57 21 110/59 76 94 05/04 0000 97.0 57 19 104/61 75 92 Room air 05/03 2330 55 21 95/53 69 92 05/03 2300 56 29 93/56 69 92 05/03 2239 60 24 95/51 68 92 05/03 2200 56 21 98/54 71 93 05/03 2130 59 20 90/53 67 93 05/03 2100 60 19 99/65 78 92 05/03 2030 61 23 112/57 80 95 05/03 2014 58 22 94 05/03 2011 96.4 62 24 109/66 80 95 Room air 05/03 1930 63 32 117/66 84 92 05/03 1900 56 25 101/58 77 94 05/03 1731 56 21 91/51 67 92 05/03 1700 60 25 101/62 77 93 05/03 1630 51 27 88/50 64 93 05/03 1600 97.0 57 18 93/52 67 91 05/03 1530 57 8 112/58 80 92 05/03 1503 93/56 71 05/03 1500 63 51 95 05/03 1431 50 19 95/53 67 94 05/03 1404 52 23 80/50 59 94 05/03 1400 53 20 78/51 59 92 05/03 1330 59 26 97/53 72 94 05/03 1310 56 19 86/51 63 91 Medications: Active Meds + DC'd Last 24 Hrs Lisinopril 2.5 MG DAILY PO Metoprolol Succinate 12.5 MG DAILY PO Aspirin 81 MG DAILY PO Lisinopril 5 MG DAILY PO (DC) Ticagrelor 90 MG Q12HR PO Sodium Chloride 1,000 ML .Q20H IV (DC) Atorvastatin Calcium 80 MG DAILY 1700 PO Metoprolol Succinate 25 MG DAILY PO (DC) Acetaminophen 650 MG Q4H PRN PRN PO Docusate Sodium 100 MG Q12H PRN PRN PO Hydrocodone Bitart/Acetaminophen 1 TAB Q4H PRN PRN PO Hydrocodone Bitart/Acetaminophen 1 TAB Q4H PRN PRN PO Ondansetron HCl 4 MG Q4H PRN PRN IV Sodium Chloride 10 ML ASDIR PRN IV Physical Exam General appearance: alert, awake Neck: supple/no meningismus, no JVD Cardiovascular: CV assessment: regular rate and rhythm, normal heart sounds Respiratory: clear to auscultation, no distress Abdomen: soft, non-tender Lower extremity: LE assessment: normal temperature, no edema Neuro/SALES PROCESS MANAGER: alert, normal speech Skin: dry, intact Psychiatry: normal affect Results Findings/Data: Laboratory Tests 01/12 510 Chemistry Sodium (134 - 147 mmol/L) 139 Potassium (3.4 - 5.0 mmol/L) 4.2 Chloride (100 - 108 mmol/L) 108 Carbon Dioxide (21 - 32 mmol/L) 25 Anion Gap (4.0 - 15.0 GAP calc) 6.0 BUN (7 - 18 MG/DL) 31 H Creatinine (0.8 - 1.3 MG/DL) 1.4 H Glomerular Filtr Rate (>60 estGFR) 53 L Glucose (70 - 110 MG/DL) 105 Calcium (8.5 - 10.1 MG/DL) 8.6 Laboratory Tests 01/12 05 Hematology WBC (3.5 - 11.0 K/mm3) 9.6 RBC (4.70 - 6.10 M/mm3) 4.14 L Hgb (12.3 - 15.9 G/DL) 12.8 Hct (35.8 - 46.7 %) 40.0 MCV (86.3 - 98.9 Fl) 96.6 MCH (28.9 - 34.4 pg) 30.9 MCHC (32.1 - 34.5 G/DL) 32.0 L RDW (11.5 - 14.5 SD) 14.1 Plt Count (150 - 450 K/mm3) 212.0 MPV (7.0 - 9.6 fL) 10.20 H Neut % (Auto) (40 - 76 %) 77.8 H Lymph % (Auto) (20.5 - 51.1 %) 9.6 L Moca % (Auto) (1.7 - 9.3 %) 10.9 H Eos % (Auto) (0.0 - 6.0 %) 1.5 Baso % (Auto) (0.0 - 2.0 %) 0.2 Neut # (Auto) (1.8 - 7.6 K/mm3) 7.43 Lymph # (Auto) (0.6 - 3.0 K/mm3) 0.9 Moca # (Auto) (0.2 - 1.5 K/mm3) 1.0 Eos # (Auto) (0.0 - 0.4 K/mm3) 0.1 Baso # (Auto) (0.0 - 0.2 K/mm3) 0.0 Add Manual Diff (CRITERIA DIFF/SCN) NO Diagnosis, Assessment Plan Problem List/A P: 1. 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 Ok to dc from cards standpoint. s/p LAD complex bifurcation ROSSI PCI and RCA ROSSI PCI 01/10/19 ASA Brilinta BB ACEi Statin at 1308 RPT #: [id number] END OF REPORT [facility] 2019-01-11 09:16:00 [facility] ([facility]) Hospitalist Progress Note REPORT#:[id number] REPORT STATUS: Signed DATE:01/11/19 TIME:915 PATIENT: AG EDWARDS UNIT #: [id number] [address]OM[address]BED: [address] : [address] AGE: 73 SEX: M ATTEND: Sam Urrutia MD ADM AUTHOR: Sam Urrutia MD * ALL edits or amendments must be made on the electronic/computer document * Subjective Chief Complaint: no sob, no CP, on nausea, no vomiting Objective General VS/I O: Vital Signs: Date Time Temp Pulse Resp B/P B/P Pulse O2 O2 Flow FiO2 Mean Ox Delivery Rate 01/11 0730 97.1 66 31 121/72 91 92 05/03 0700 62 32 104/61 77 95 05/03 0600 54 23 94/55 69 95 05/03 0500 65 32 101/60 75 93 05/03 0400 66 21 97/57 72 93 05/03 0400 97.6 66 21 97/57 70 99 Room air 05/03 0300 66 23 124/72 91 90 05/03 0200 61 21 89/54 66 93 05/03 0100 57 19 99/61 75 94 05/03 0000 63 19 87/53 65 93 05/03 0000 97.6 61 18 86/53 64 99 Room air 05/02 2346 71 55 90/57 68 95 05/02 2330 67 18 90/55 68 93 05/02 2315 80 40 95/66 76 92 05/02 2300 69 17 96/51 69 93 05/02 2245 72 16 105/60 77 96 05/02 2230 72 22 94/58 71 96 05/02 2215 78 22 108/69 85 96 05/02 2203 72 26 110/72 87 97 05/02 2145 77 16 118/66 86 97 05/02 2130 74 16 119/63 86 96 05/02 2116 81 37 107/67 81 96 05/02 2101 75 27 99/54 74 97 05/02 2045 66 14 106/64 81 96 05/02 2029 66 11 108/67 83 96 05/02 2014 70 16 113/74 90 97 05/02 1999 71 16 121/65 87 97 05/02 1945 71 14 127/77 97 97 05/02 1942 97.6 75 18 133/76 95 99 Room air 05/02 1930 77 21 114/68 86 97 05/02 1915 80 7 114/68 86 95 05/02 1900 78 11 116/71 88 96 05/02 1845 78 13 115/74 91 95 05/02 1834 81 15 97 05/02 1830 80 11 115/76 90 95 05/02 1815 86 22 126/75 92 97 05/02 1800 86 17 114/74 89 96 05/02 1745 88 116/72 89 96 05/02 1730 96.1 90 17 111/67 81 94 Room air 05/02 1730 90 111/67 84 94 05/02 1716 93 22 117/73 91 98 05/02 1715 92 19 96 05/02 1713 93 12 96 05/02 1450 98 Nasal 2.425374 cannula 01/10 1449 98.0 78 18 192/113 139 98 Nasal 2.304367 cannula 24 hour I O ending at 0700: 01/11 0700 01/10 1900 Intake Total 600.00 200.00 Output Total 200 Balance 400.00 200.00 Intake, IV 600.00 100.00 Intake, Oral 100 Number 1 Bowel Movements Number Voids 1 Output, Urine 200 Patient 216 lb Weight Weight Bed scale Measurement Method Physical Exam General appearance: alert, awake Head/Eyes: atraumatic ENT: normal nose Neck: full range of motion Cardiovascular: normal heart sounds Respiratory: clear to auscultation Abdomen: soft Genitourinary: urine Rectal: deferred Extremities: moves all Musculoskeletal: normal inspection Neuro/SALES PROCESS MANAGER: alert, oriented X 3 Skin: dry, intact Lymphatics: no lymphadenopathy Diagnosis, Assessment Plan Problem List/A P: 1. 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 - per report HTN emergency Former smoker h/o gastric cancer h/o prostate cancer Recs ASA, Brilinta, BB, ACEi, Statin, appreciate cardiology, ok for IMU, Echo today [facility] home in am when cleared by cards, ambulate at 0917 RPT #: [id number] END OF REPORT [facility] 2019-01-11 08:43:00 [facility] ([facility]) Cardiology Progress Note REPORT#:[id number] REPORT STATUS: Signed DATE:01/11/19 TIME:0843 PATIENT: AG EDWARDS UNIT #: [id number] ROOM[address]BED: [address] : [address] AGE: 73 SEX: M ATTEND: Sam Urrutia MD ADM AUTHOR: Te Bradley MD * ALL edits or amendments must be made on the electronic/computer document * Subjective HPI: Denies CP or SOB Objective General VS/I O: 24 hour I O ending at 0700: 01/11 0700 05/ 1900 Intake Total 600.00 200.00 Output Total 200 Balance 400.00 200.00 Intake, IV 600.00 100.00 Intake, Oral 100 Number 1 Bowel Movements Number Voids 1 Output, Urine 200 Patient 97.9 kg Weight Weight Bed scale Measurement Method Vital Signs: Date Time Temp Pulse Resp B/P B/P Pulse O2 O2 Flow FiO2 Mean Ox Delivery Rate 01/11 730 97.1 66 31 121/72 91 92 05/03 0700 62 32 104/61 77 95 05/03 0600 54 23 94/55 69 95 05/03 0500 65 32 101/60 75 93 05/03 0400 66 21 97/57 72 93 05/03 0400 97.6 66 21 97/57 70 99 Room air 05/03 0300 66 23 124/72 91 90 05/03 0200 61 21 89/54 66 93 05/03 0100 57 19 99/61 75 94 05/03 0000 63 19 87/53 65 93 05/03 0000 97.6 61 18 86/53 64 99 Room air 05/02 2346 71 55 90/57 68 95 05/02 2330 67 18 90/55 68 93 05/02 2315 80 40 95/66 76 92 05/02 2300 69 17 96/51 69 93 05/02 2245 72 16 105/60 77 96 05/02 2230 72 22 94/58 71 96 05/02 2215 78 22 108/69 85 96 05/02 2203 72 26 110/72 87 97 05/02 2145 77 16 118/66 86 97 05/02 2130 74 16 119/63 86 96 05/02 2116 81 37 107/67 81 96 05/02 2101 75 27 99/54 74 97 05/02 2045 66 14 106/64 81 96 05/02 2029 66 11 108/67 83 96 05/02 2014 70 16 113/74 90 97 05/02 1999 71 16 121/65 87 97 05/02 1945 71 14 127/77 97 97 05/02 194 97.6 75 18 133/76 95 99 Room air 05/02 1930 77 21 114/68 86 97 05/02 1915 80 7 114/68 86 95 05/02 1900 78 11 116/71 88 96 05/02 1845 78 13 115/74 91 95 / 1834 81 15 97 / 1830 80 11 115/76 90 95 / 1815 86 22 126/75 92 97 01/10 1800 86 17 114/74 89 96 / 1745 88 116/72 89 96 / 1730 96.1 90 17 111/67 81 94 Room air 01/10 1730 90 111/67 84 94 / 1716 93 22 117/73 91 98 / 1715 92 19 96 / 1713 93 12 96 / 1450 98 Nasal 2.926765 cannula 01/10 1449 98.0 78 18 192/113 139 98 Nasal 2.975400 cannula Medications: Active Meds + DC'd Last 24 Hrs Aspirin 81 MG DAILY PO Lisinopril 5 MG DAILY PO Ticagrelor 90 MG Q12HR PO Sodium Chloride 1,000 ML .Q20H IV Atorvastatin Calcium 80 MG DAILY 1700 PO Metoprolol Succinate 25 MG DAILY PO Heparin Sodium (Porcine) 500 ML .STK-MED ONE IV (DC) Ticagrelor 0 .STK-MED ONE .ROUTE (DC) Fentanyl Citrate 0 .STK-MED ONE .ROUTE (DC) Midazolam HCl 0 .STK-MED ONE .ROUTE (DC) Acetaminophen 650 MG Q4H PRN PRN PO Docusate Sodium 100 MG Q12H PRN PRN PO Hydrocodone Bitart/Acetaminophen 1 TAB Q4H PRN PRN PO Hydrocodone Bitart/Acetaminophen 1 TAB Q4H PRN PRN PO Ondansetron HCl 4 MG Q4H PRN PRN IV Sodium Chloride 10 ML ASDIR PRN IV Sodium Chloride 1,000 ML .STK-MED ONE IV (DC) Heparin Sodium (Porcine) 1,500 ML .STK-MED ONE IV (DC) Iopamidol 0 .STK-MED ONE .ROUTE (DC) Nitroglycerin/Dextrose 250 ML .STK-MED ONE IV (DC) Sodium Chloride 50 ML .STK-MED ONE IV (DC) Bivalirudin 0 .STK-MED ONE .ROUTE (DC) Heparin Sodium (Porcine) 0 .STK-MED ONE .ROUTE (DC) Lidocaine HCl 0 .STK-MED ONE .ROUTE (DC) Physical Exam General appearance: alert, awake Neck: supple/no meningismus, no JVD Cardiovascular: CV assessment: regular rate and rhythm, normal heart sounds Respiratory: clear to auscultation, no distress Abdomen: soft, non-tender Lower extremity: LE assessment: normal temperature, no edema Neuro/SALES PROCESS MANAGER: alert, normal speech Skin: dry, intact Psychiatry: normal affect Results Findings/Data: Laboratory Tests 01/11 01/10 0522 1745 Chemistry Sodium (134 - 147 mmol/L) 140 Potassium (3.4 - 5.0 mmol/L) 4.5 Chloride (100 - 108 mmol/L) 110 H Carbon Dioxide (21 - 32 mmol/L) 24 Anion Gap (4.0 - 15.0 GAP calc) 6.0 BUN (7 - 18 MG/DL) 25 H Creatinine (0.8 - 1.3 MG/DL) 1.2 Glomerular Filtr Rate (>60 estGFR) >=60 max estimate Glucose (70 - 110 MG/DL) 124 H Calcium (8.5 - 10.1 MG/DL) 8.6 Troponin I (0.000 - 0.045 NG/ML) 38.700 *H 01/10 01/10 01/10 1745 1454 1452 Chemistry POC Sodium (135 - 146 mmol/L) 142 Sodium (134 - 147 mmol/L) 141 POC Potassium (3.5 - 4.9 mmol/L) 5.5 H Potassium (3.4 - 5.0 mmol/L) 4.4 POC Chloride (98 - 109 mmol/L) 102 Chloride (100 - 108 mmol/L) 110 H Carbon Dioxide (21 - 32 mmol/L) 25 28 Anion Gap (4.0 - 15.0 GAP calc) 6.0 POC BUN (8 - 26 mg/dL) 27 H BUN (7 - 18 MG/DL) 23 H Creatinine (0.8 - 1.3 MG/DL) 1.2 POC Creatinine (0.6 - 1.3 mg/dL) 1.2 Glomerular Filtr Rate (>60 estGFR) >=60 max estimate Estimated GFR (MDRD) (42 - 98) 63 Glucose (70 - 110 MG/DL) 132 H POC Glucose (70 - 105 mg/dL) 165 H Calcium (8.5 - 10.1 MG/DL) 8.5 Ionized Calcium Mary Lou (1.12 - 1.32 mmol/L) 1.32 Rapid Troponin I (0.00 - 0.08 ng/mL) 0.06 05/ 1450 Chemistry Total Bilirubin (0.2 - 1.2 MG/DL) 0.50 Direct Bilirubin (0.00 - 0.30 MG/DL) 0.20 Indirect Bilirubin (0.2 - 1.2 MG/DL) 0.30 AST (15 - 37 Unit/L) 18 ALT (12 - 78 Unit/L) 21 Total Alk Phosphatase (50 - 136 Unit/L) 66 Total Protein (6.4 - 8.2 G/DL) 8.6 H Albumin (3.4 - 5.0 G/DL) 3.8 Laboratory Tests 01/10 161 1450 Coagulation INR (0.8 - 1.2 INR Unit) 1.15 PT Patient/Control Mix (9.3 - 12.9 SECONDS) 13.3 H Activated Coag Time (74 - 125 SECistat) 160 H 176 H 261 H Laboratory Tests 01/11 01/10 0522 1450 Hematology WBC (3.5 - 11.0 K/mm3) 12.1 H 11.4 H RBC (4.70 - 6.10 M/mm3) 4.34 L 5.30 Hgb (12.3 - 15.9 G/DL) 13.5 16.3 H Hct (35.8 - 46.7 %) 41.6 50.6 H MCV (86.3 - 98.9 Fl) 95.9 95.5 MCH (28.9 - 34.4 pg) 31.1 30.8 MCHC (32.1 - 34.5 G/DL) 32.5 32.2 RDW (11.5 - 14.5 SD) 13.9 14.0 Plt Count (150 - 450 K/mm3) 219.0 242.0 MPV (7.0 - 9.6 fL) 9.90 H 10.10 H Neut % (Auto) (40 - 76 %) 86.9 H 84.2 H Lymph % (Auto) (20.5 - 51.1 %) 4.4 L 9.2 L Moca % (Auto) (1.7 - 9.3 %) 8.4 5.7 Eos % (Auto) (0.0 - 6.0 %) 0.2 0.7 Baso % (Auto) (0.0 - 2.0 %) 0.1 0.2 Neut # (Auto) (1.8 - 7.6 K/mm3) 10.52 H 9.61 H Lymph # (Auto) (0.6 - 3.0 K/mm3) 0.5 L 1.1 Moca # (Auto) (0.2 - 1.5 K/mm3) 1.0 0.7 Eos # (Auto) (0.0 - 0.4 K/mm3) 0.0 0.1 Baso # (Auto) (0.0 - 0.2 K/mm3) 0.0 0.0 Add Manual Diff (CRITERIA DIFF/SCN) NO NO Laboratory Tests 01/10 1745 Chemistry Troponin I (0.000 - 0.045 NG/ML) 38.700 *H Radiology data: Recent Impressions: RADIOLOGY - XR CHEST 1 V 01/10 1449 Report Impression - Status: SIGNED Entered: 01/10/2019 1502 Impression: 1. Cardiomegaly and mild central vascular prominence/congestion. 2. Prominence of the vascular pedicle is noted. This could potentially be the result of aortic tortuosity, ectasia, or aneurysm. Mediastinal mass is also a consideration. This may be better characterized with contrast-enhanced CT. Impression By: [email or web address] - Blake Scott M.D. Diagnosis, Assessment Plan Problem List/A P: 1. 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 [facility] and ambulation with assistance Anticipate dc in AM if continues to evolve well Echo s/p LAD complex bifurcation ROSSI PCI and RCA ROSSI PCI 01/10/19 ASA Brilinta d/c sheath after ACT < 160. Transduce pressure in meantime BB ACEi Statin at 0845 RPT #: [id number] END OF REPORT [facility] 2019-01-10 19:14:00 [id number] [facility] [address] [place] [id number] PATIENT NAME: AG EDWARDS ADMIT DATE: 01/10/19 ACCOUNT NO: [id number] ROOM NO: ICU05 AGE: 73 REPORT TYPE: CARDIAC CATHETERIZATION REPORT SEX: M ADMITTING PHYSICIAN: Sam Urrutia MD ATTENDING PHYSICIAN: Sam Urrutia MD PROCEDURE DATE: 01/10/2019 PROCEDURE INDICATION: Acute anterolateral and inferior ST-elevation myocardial infarction. 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 POWER PLANT TECHNICIAN: Te Chaudhary M.D., interventional cardiology. PROCEDURES PERFORMED: 1. Acute myocardial infarction, PCI, LAD bifurcation lesion (type C ____ lesion). 2. Additional acute WI, PCI of RCA with positive thrombus, acute occlusion felt to be an acute vessel lesion. 3. Left heart catheterization with selective coronary angiography. 4. Manual pressure hemostasis to right common femoral site. PROCEDURE COMPLICATIONS: The patient had a perfusion injury related asystole treated with atropine, had IV fluids with fast regaining of pulse. The patient did not lose consciousness (short episode of overt vasovagal). ESTIMATED BLOOD LOSS: Less than 50 mL. PROCEDURE SUMMARY: After consent was obtained, the patient was prepped and draped in a sterile fashion. The right common femoral site was locally infiltrated with 2% lidocaine and a micropuncture was used for access. A 6-Nigerien sheath was placed and an XB LAD 3.5 no side holes guide catheter was used for angiography of the left main. It was decided to proceed with intervention of the LAD due to acute lesion, and 99% stenosis of the bifurcation of the LAD and the diagonal. Description will be further noted below. At the end of LAD PCI, a JR4 6-Nigerien catheter was used for engagement of the right coronary artery and angiography was performed in multiple views confirming an acute occlusion of the RCA with positive thrombus. It was decided to proceed with additional PCI of this vessel as will be described below. The JR4 was also used to cross the aortic valve for hemodynamic measurements. No left ventriculogram was performed. ANGIOGRAPHIC AND DIAGNOSTIC FINDINGS: 1. LV pressure was 146/4 with end-diastolic pressure of 23. 2. Aortic pressure was 146/84. 3. The left main is large in caliber with luminal irregularities and gives an LAD and a circumflex. 4. The LAD proximally has 99% stenosis followed by bifurcation with an ostial PATIENT NAME: AG EDWARDS diagonal of medium to large caliber and 60% stenosis, and the mid LAD has residual 99% stenosis, this was felt to be an acute occlusion and therefore intervened on as will be described below. There was GIBSON 2 flow preprocedure and GIBSON 3 flow post-procedure. 5. The circumflex had 30% stenosis prior to giving an obtuse marginal of [id number]-isviuj caliber and a left posterolateral branch. 6. The right coronary artery was acutely occluded at 100% with GIBSON 0 flow and positive thrombus. LAD PCI: Run-through wire was used to cross the diagonal area of the proximal LAD stenosis and a diagonal stenosis and an additional [employer] 50 wire was used to cross the LAD proximal and mid areas of stenosis. Of note, the ACT was maintained over 250 with heparin, aspirin 325 mg, and Brilinta 180 mg were given as preload. Pre-dilatation was performed with a 2.5 x 12 Emerge balloon across the areas of LAD stenosis with serial inflations at 12 to 18 atmospheres, this was followed by a Resolute [place] 3.0 x 30 drug-eluting stent deployed to 18 atmospheres across the LAD area of stenosis and the proximal to mid segment was postdilated with an NC Emerge 3.0 x 18-20 atmospheres. Final angiography reveals 0% residual stenosis across the LAD, 60% stable stenosis of the diagonal ostium with GIBSON-3 flow, no flow-limiting dissections, and no perforations. Minimal residual thrombus noted. The patient will be transferred to the ICU for further care. The RCA was intervened on with a JR4, 6-Nigerien no side hole guide catheter and a run-through wire. A predilatation was performed with a 2.5 x 12 Emerge balloon up to 18 atmospheres across the target lesions, this was followed by hypotension followed by short period of asystole, responsive to atropine with stabilization of hemodynamics and PCI was then performed of the RCA with a 4.0 x 32-mm Synergy [place] drug-eluting stent deployed to 18 atmospheres across the target lesion with final angiography revealing 0% residual stenosis, GIBSON-3 flow, no flow-limiting dissections, and no perforations. CONCLUSION: LAD complex bifurcating lesion, PCI with drug-eluting stent 3.0 x 30 Resolute [place], and additional RCA drug-eluting stent PCI with a 4.0 x 32-mm Synergy drug-eluting stent. RECOMMENDATIONS: 1. Aspirin 81 mg daily. 2. Brilinta 90 mg every 12 hours. 3. ICU care. 4. Discontinue sheath after ACT less than 160. In the meantime transduce for hemodynamic monitoring. 5. Overall, in critical state, guarded prognosis. It is felt after evaluation of findings that the acute lesion was likely complex and patient had an unstable lesion with severe subtotal occlusion of the LAD, which got complicated by an acute occlusion of the RCA with possible [id number] collaterals presenting with anterolateral ST-elevation WI with inferior expansion. Given these findings, it was felt that both the LAD and RCA PCIs were deemed necessary for acute unstable lesions and would best benefit the patient. Dictated By: Te Chaudhary MD PATIENT NAME: AG EDWARDS WT: CATH:JOSÉ LUIS/BIALEY/CELIO Conf#: [id number]#: [id number] Authenticated by Te Chaudhary MD On 01/22/2019 02:40:31 PM at 1440 PATIENT NAME: AG EDWARDS [facility] 2019-01-10 16:52:00 [facility] ([facility]) History Physical - Adult REPORT#:[id number] REPORT STATUS: Signed DATE:01/10/19 TIME:1651 PATIENT: AG EDWARDS UNIT #: [id number] ROOM/BED: ICU05-1 : 44 AGE: 73 SEX: M ATTEND: Sam Urrutia MD ADM AUTHOR: Sam Urrutia MD * ALL edits or amendments must be made on the electronic/computer document * History of Present Illness HPI Chief complaint: chest pain HPI: 73 y/o M w/ PMHx of HTN and prostate cancer and stomach cancer in the past, presents to ED via EMS for diaphoresis, associated w/ generalized weakness x 2 hours and coughing along with chest pressure. Per EMS, onset of sxs started 1230, and EMS received the call 1330. Intial 12-lead EKG by EMS showed STEMI and pt was given 324mg ASA en route. Pt denies any chest pain. Sxs unchanged since onset; in high severity. Denies cough, fever, N/V, palpitations and SOB. History Past medical history: Reports: Cancer (prostate), Hypertension. Family history: Reports: Heart disease. Smoking status for patients 13 years old or older: Unknown,if ever smoked Other social history: Local resident Medication/Allergy-Vaccine Hx Allergies: Coded Allergies: No Known Allergies (01/10/19) Ambulatory status: Independent Review of Systems Systems reviewed negative: allergy/Immun (cough, sob), cardiovascular, constitutional, endocrine, ENT, eyes, GI, , heme, musculoskeletal, neuro, psych, respiratory, skin Physical Exam VS/I O Vital Signs: Date Time Temp Pulse Resp B/P B/P Pulse O2 O2 Flow FiO2 Mean Ox Delivery Rate 01/10 1450 98 Nasal 2.203882 cannula 01/10 1449 98.0 78 18 192/113 139 98 Nasal 2.405884 cannula General appearance: alert, awake Head/Eyes: atraumatic ENT: normal nose Neck: supple Cardiovascular: regular rate rhythm Respiratory: clear to auscultation Abdomen/GI: soft Genitourinary: urine Extremities: warm, moves all Musculoskeletal: full range of motion Neuro/SALES PROCESS MANAGER: alert Skin: dry, intact Lymphatic: no lymphadenopathy Diagnosis, Assessment Plan Problem List/A P: 1. 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 follow up labs at 1659 RPT #: [id number] END OF REPORT [facility] 2019-01-10 16:50:00 [facility] ([facility]) Cardiology Consultation REPORT#:[id number] REPORT STATUS: Signed DATE:01/10/19 TIME:1650 PATIENT: AG EDWARDS UNIT #: [id number] ROOM/BED: [place] [address]-1 : 44 AGE: 73 SEX: M ATTEND: Sam Urrutia MD ADM AUTHOR: Te Bradley MD * ALL edits or amendments must be made on the electronic/computer document * History of Present Illness HPI Requesting Clinician: Sam Urrutia Reason for consult: STEMI HPI: 73 yo M former smoker, HTN, gastric cancer and prostate cancer survivor, presents with acute CP onset 13:00 hrs today. EKG with anterolateral and inferior ST elevations. 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 Smoking status for patients 13 years old or older: Unknown,if ever smoked Other social history: Local resident Medications: Current Hospital Medications: Blood Formation,Coagulation Sig/Bj Start time Last Medication Dose Route Stop Time Status Admin Heparin Sodium 500 ML .STK-MED ONE 01/10 1642 DC (Porcine) IV (HEPARIN 1,000 UNITS/ NS 500 ML) Ticagrelor 0 .STK-MED ONE 01/10 1530 DC 05 (BRILINTA) .ROUTE 1631 Heparin Sodium 1,500 ML .STK-MED ONE 01/10 1456 DC 05/02 (Porcine) IV 1514 (HEPARIN 1,000 UNITS/ NS 500 ML) Bivalirudin 0 .STK-MED ONE 01/10 1455 DC 05 (ANGIOMAX) .ROUTE 1514 Heparin Sodium 0 .STK-MED ONE 01/10 1455 DC 05/02 (Porcine) .ROUTE 1514 (HEPARIN SODIUM) Cardiovascular Drugs Sig/Bj Start time Last Medication Dose Route Stop Time Status Admin Nitroglycerin/ 250 ML .STK-MED ONE 01/10 1456 DC 05/02 Dextrose IV 1514 (NITROGLYCERIN 100 MCG/ML DRIP) Lidocaine HCl 0 .STK-MED ONE 01/10 1455 DC 05/ (XYLOCAINE 2%) .ROUTE 1514 Central Nervous System Agents Sig/Bj Start time Last Medication Dose Route Stop Time Status Admin Fentanyl Citrate 0 .STK-MED ONE 01/10 1504 DC 01/10 (SUBLIMAZE) .ROUTE 1514 Midazolam HCl 0 .STK-MED ONE 01/10 1504 DC 01/10 (VERSED) .ROUTE 1514 Acetaminophen 650 MG Q4H PRN PRN / 1500 AC (TYLENOL) PO 02/09 1459 Hydrocodone Bitart/ 1 TAB Q4H PRN PRN / 1500 AC Acetaminophen PO 01/20 1459 (NORCO 5/325) Hydrocodone Bitart/ 1 TAB Q4H PRN PRN / 1500 AC Acetaminophen PO 01/20 1459 (NORCO 10/325) Diagnostic Agents Sig/Bj Start time Last Medication Dose Route Stop Time Status Admin Iopamidol 0 .STK-MED ONE 01/10 1456 DC 01/10 (ISOVUE-300) .ROUTE 1514 Electrolytic, Caloric, And Rajwinder Sig/Bj Start time Last Medication Dose Route Stop Time Status Admin Sodium Chloride 10 ML ASDIR PRN 01/10 1500 AC (SODIUM CHLORIDE) IV 02/09 1459 Sodium Chloride 1,000 ML .STK-MED ONE 01/10 1457 DC 01/10 (0.9% Sodium IV 1514 Chloride) Sodium Chloride 50 ML .STK-MED ONE 01/10 1456 DC 01/10 (0.9% Sodium IV 1514 Chloride) Gastrointestinal Drugs Sig/Bj Start time Last Medication Dose Route Stop Time Status Admin Docusate Sodium 100 MG Q12H PRN PRN 01/10 1500 AC (COLACE) PO 02/09 1459 Ondansetron HCl 4 MG Q4H PRN PRN / 1500 AC (ZOFRAN) IV 02/09 1459 Allergies: Coded Allergies: No Known Allergies (01/10/19) Ambulatory status: Independent Review of Systems Systems reviewed negative: Cardiovascular, Constitutional, GI, , Heme, Musculoskeletal, Neuro, Respiratory Objective Physical Exam VS/I O: Vital Signs: Date Time Temp Pulse Resp B/P B/P Pulse O2 O2 Flow FiO2 Mean Ox Delivery Rate 01/10 1450 98 Nasal 2.400415 cannula 01/10 1449 98.0 78 18 192/113 139 98 Nasal 2.735236 cannula General appearance: alert, oriented Neck: JVD present Cardiovascular: CV assessment: S3 present, regular rate and rhythm Respiratory: crackles, decreased breath sounds Abdomen: soft, non-tender Lower extremity: LE assessment: abnormal pedal pulse, normal temperature, no edema Results Findings/Data: Laboratory Tests 01/10 01/10 1452 1450 Chemistry Total Bilirubin (0.2 - 1.2 MG/DL) 0.50 Direct Bilirubin (0.00 - 0.30 MG/DL) 0.20 Indirect Bilirubin (0.2 - 1.2 MG/DL) 0.30 AST (15 - 37 Unit/L) 18 ALT (12 - 78 Unit/L) 21 Total Alk Phosphatase (50 - 136 Unit/L) 66 Rapid Troponin I (0.00 - 0.08 ng/mL) 0.06 Total Protein (6.4 - 8.2 G/DL) 8.6 H Albumin (3.4 - 5.0 G/DL) 3.8 Laboratory Tests 01/10 01/10 1619 1450 Coagulation INR (0.8 - 1.2 INR Unit) 1.15 PT Patient/Control Mix (9.3 - 12.9 SECONDS) 13.3 H Activated Coag Time (74 - 125 SECistat) 261 H Laboratory Tests 01/10 1450 Hematology WBC (3.5 - 11.0 K/mm3) 11.4 H RBC (4.70 - 6.10 M/mm3) 5.30 Hgb (12.3 - 15.9 G/DL) 16.3 H Hct (35.8 - 46.7 %) 50.6 H MCV (86.3 - 98.9 Fl) 95.5 MCH (28.9 - 34.4 pg) 30.8 MCHC (32.1 - 34.5 G/DL) 32.2 RDW (11.5 - 14.5 SD) 14.0 Plt Count (150 - 450 K/mm3) 242.0 MPV (7.0 - 9.6 fL) 10.10 H Neut % (Auto) (40 - 76 %) 84.2 H Lymph % (Auto) (20.5 - 51.1 %) 9.2 L Moca % (Auto) (1.7 - 9.3 %) 5.7 Eos % (Auto) (0.0 - 6.0 %) 0.7 Baso % (Auto) (0.0 - 2.0 %) 0.2 Neut # (Auto) (1.8 - 7.6 K/mm3) 9.61 H Lymph # (Auto) (0.6 - 3.0 K/mm3) 1.1 Moca # (Auto) (0.2 - 1.5 K/mm3) 0.7 Eos # (Auto) (0.0 - 0.4 K/mm3) 0.1 Baso # (Auto) (0.0 - 0.2 K/mm3) 0.0 Add Manual Diff (CRITERIA DIFF/SCN) NO Radiology Data: Recent Impressions: RADIOLOGY - XR CHEST 1 V 01/10 1449 Report Impression - Status: SIGNED Entered: 01/10/2019 1502 Impression: 1. Cardiomegaly and mild central vascular prominence/congestion. 2. Prominence of the vascular pedicle is noted. This could potentially be the result of aortic tortuosity, ectasia, or aneurysm. Mediastinal mass is also a consideration. This may be better characterized with contrast-enhanced CT. Impression By: [email or web address] - Blake Scott M.D. Diagnosis, Assessment Plan Problem List/A P: 1. 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 Transduce pressure in meantime BB ACEi Statin at 1654 RPT #: [id number] END OF REPORT [facility] 2019-01-10 14:53:00 [facility] ([facility]) EMERGENCY PROVIDER REPORT REPORT#:[id number] REPORT STATUS: Signed DATE:01/10/19 TIME:1452 PATIENT: AG EDWARDS UNIT #: [id number] ROOM/BED: [place] [id number] : 44 AGE: 73 SEX: M PCP PHYS: No Primary or Family Physician SERVICE AUTHOR: Nate Mobley MD * ALL edits or amendments must be made on the electronic/computer document * HPI-Chest Pain 40 and Over General Confirmed Patient Yes Patient Type New patient Initial Greet Date/Time 01/10/19 1449 Presentation Chief Complaint Diaphoresis Hx Obtained From Gastroenterology Teacher Sudden in Onset? Yes Onset Occurred Hours ago (2) Symptom Duration Since onset Progression since Onset Unchanged )( Migration/Movement None Severity: Onset Severe Severity: Current No pain currently Associated with Reports: Diaphoresis, Weakness. Denies: Cough, non-productive, Fever, Nausea, Palpitations, Shortness of Breath, Vomiting. Exacerbated by Nothing Relieved by Nothing Context Immunization Status General Unknown Free Text HPI Notes Free Text HPI Notes 73 y/o M w/ PMHx of HTN and prostate cancer presents to ED via EMS for diaphoresis, associated w/ generalized weakness x 2 hours. Per EMS, onset of sxs started 1230, and EMS received the call 1330. Intial 12-lead EKG by EMS showed STEMI and pt was given 324mg ASA en route. Pt denies any chest pain. Sxs unchanged since onset; in high severity. Denies cough, fever, N/V, palpitations and SOB. Portions of this section were scribed by Alyson Paul on 01/10/19 at 1509 Risk-Chest Pain 40 and Over Risk Stratification )( Coronary Artery Disease Hypertension )( Thoracic Aortic Dissection Hypertension )( Pulmonary Embolism Risk factors reviewed )( AMI-Aspirin Aspirin Last 24 Hrs 324 mg Portions of this section were scribed by Alyson Paul on 01/10/19 at 1453 Review of Systems ROS Statements All systems rev neg except as marked. Focused Review of Systems Constitutional Reports: Weakness - generalized. Denies: Chills, Fatigue, Fever. Respiratory Denies: Cough, non-productive, Cough, productive, Shortness of breath, Wheezing. Cardiovascular Denies: Chest pain, Palpitations, Syncope. GI Denies: Abdominal pain, Constipation, Diarrhea, Nausea, Vomiting. Musculoskeletal Denies: Back pain, Extremity swelling, Joint swelling, Neck pain. Skin Reports: Diaphoresis. Denies: Laceration, Rash, Swelling. Neurologic Denies: Change LOC, Headache, Seizure, Shaking, Syncope. Additional Review of Systems Eyes Denies: Blurred bilat, Discharge bilat, Eye pain bilat, Redness bilat, Swelling bilat. Ears/Nose/Throat Denies: Earache bilat, Nasal congestion, Throat swelling, Tongue swelling. Male Denies: Dysuria, Urinary frequency, Urination decreased, Urination increased. Hematologic Denies: Bleeding, Bruising. Allergy/Immun Denies: Itching, Rhinorrhea, Sneezing. Portions of this section were scribed by Alyson Paul on 01/10/19 at 1503 Past Medical History - Adult Stated Complaint STEMI Allergies Coded Allergies: No Known Allergies (01/10/19) Home Medications Reported Medications METOPROLOL SUCC XL (TOPROL XL) 50 MG PO DAILY Review of Nursing Notes Rev avail, and agree Pt reports no significant: Past surgical history Past Medical History: Reports: Cancer (prostate), Hypertension. Smoking status for patients 13 years old or older: Unknown,if ever smoked Other Social History Local resident Ambulatory Status Independent Portions of this section were scribed by Alyson Paul on 01/10/19 at 1453 Physical Exam Vital Signs Vital Signs First Documented: Result Date Time Pulse Ox 98 01/10 1449 B/P 192/113 05/ 1449 B/P Mean 139 05/ 1449 O2 Delivery Nasal cannula 01/10 1449 O2 Flow Rate 2.509796 / 1449 Temp 98.0 01/10 1449 Pulse 78 05 1449 Resp 18 / 1449 Last Documented: Result Date Time Pulse Ox 98 05 1450 O2 Delivery Nasal cannula 01/10 1450 O2 Flow Rate 2.698870 01/10 1450 B/P 192/113 / 1449 B/P Mean 139 01/10 1449 Temp 98.0 01/10 1449 Pulse 78 05/ 1449 Resp 18 05/ 1449 Review of Vital Signs Reviewed Focused PE General/Const General/Const Awake, Alert, No acute distress Eyes Eyes Atraumatic, EOMI MS Neck Neck Atraumatic, Supple, No meningismus, Full range of motion Resp/Chest Respiratory/Chest Atraumatic, Breath sounds NL, Breath sounds = bilat Cardiovascular Cardiovascular Heart rate NL, Regular rhythm, Heart sounds NL Abdomen/GI Abdomen/GI Atraumatic, Soft, Non-tender MS Back Back Atraumatic, Inspection NL, Full range of motion Skin Skin No rash, Warm, Intact Text/Dict Notes mildly diaphoretic Neurologic Neurologic Oriented X3, Speech NL, No motor deficits, No sensory deficits Additional PE MS Head Head Atraumatic, Normocephalic Ears/Nose/Throat Ears/Nose/Throat Atraumatic, Airway patent, Mucous membranes moist Portions of this section were scribed by Alyson Paul on 01/10/19 at 1509 Interpretation Diagnostics Lab Results Interpretation Results Laboratory Tests 01/10/19 1454: [Embedded Image Not Available] 01/10/19 1450: [Embedded Image Not Available] Laboratory Tests: 01/10 01/10 01/10 1454 1452 1450 Chemistry POC Sodium (135 - 146 mmol/L) 142 POC Potassium (3.5 - 4.9 mmol/L) 5.5 H POC Chloride (98 - 109 mmol/L) 102 Carbon Dioxide (24 - 29 mmol/L) 28 POC BUN (8 - 26 mg/dL) 27 H POC Creatinine (0.6 - 1.3 mg/dL) 1.2 Estimated GFR (MDRD) (42 - 98) 63 POC Glucose (70 - 105 mg/dL) 165 H Ionized Calcium Mary Lou (1.12 - 1.32 mmol/L) 1.32 Total Bilirubin (0.2 - 1.2 MG/DL) 0.50 Direct Bilirubin (0.00 - 0.30 MG/DL) 0.20 Indirect Bilirubin (0.2 - 1.2 MG/DL) 0.30 AST (15 - 37 Unit/L) 18 ALT (12 - 78 Unit/L) 21 Total Alk Phosphatase (50 - 136 Unit/L) 66 Rapid Troponin I (0.00 - 0.08 ng/mL) 0.06 Total Protein (6.4 - 8.2 G/DL) 8.6 H Albumin (3.4 - 5.0 G/DL) 3.8 Coagulation INR (0.8 - 1.2 INR Unit) 1.15 PT Patient/Control Mix (9.3 - 12.9 SECONDS) 13.3 H Hematology WBC (3.5 - 11.0 K/mm3) 11.4 H RBC (4.70 - 6.10 M/mm3) 5.30 Hgb (12.3 - 15.9 G/DL) 16.3 H Hct (35.8 - 46.7 %) 50.6 H MCV (86.3 - 98.9 Fl) 95.5 MCH (28.9 - 34.4 pg) 30.8 MCHC (32.1 - 34.5 G/DL) 32.2 RDW (11.5 - 14.5 SD) 14.0 Plt Count (150 - 450 K/mm3) 242.0 MPV (7.0 - 9.6 fL) 10.10 H Neut % (Auto) (40 - 76 %) 84.2 H Lymph % (Auto) (20.5 - 51.1 %) 9.2 L Moca % (Auto) (1.7 - 9.3 %) 5.7 Eos % (Auto) (0.0 - 6.0 %) 0.7 Baso % (Auto) (0.0 - 2.0 %) 0.2 Neut # (Auto) (1.8 - 7.6 K/mm3) 9.61 H Lymph # (Auto) (0.6 - 3.0 K/mm3) 1.1 Moca # (Auto) (0.2 - 1.5 K/mm3) 0.7 Eos # (Auto) (0.0 - 0.4 K/mm3) 0.1 Baso # (Auto) (0.0 - 0.2 K/mm3) 0.0 Add Manual Diff (CRITERIA DIFF/SCN) NO Recent Impressions: RADIOLOGY - XR CHEST 1 V 01/10 1449 Report Impression - Status: SIGNED Entered: 01/10/2019 1502 Impression: 1. Cardiomegaly and mild central vascular prominence/congestion. 2. Prominence of the vascular pedicle is noted. This could potentially be the result of aortic tortuosity, ectasia, or aneurysm. Mediastinal mass is also a consideration. This may be better characterized with contrast-enhanced CT. Impression By: [email or web address] - Blake Scott M.D. Lab Imaging Statement Laboratory radiographic studies reviewed and considered in the medical decision-making. Point of Care Testing Pulse Oximetry Pulse Ox % 98 On: Nasal cannula Interpretation Interpreted by me, Pulse oximetry normal Time 1450 ECG #1 Interpretation ECG Documented in MUSE Yes Date 01/10/19 Time 1451 Interpreted by ED physician Rate 79 ECG Q-T-ST - WI STEMI inferior wall Portions of this section were scribed by Alyson Paul on 01/10/19 at 1509 Re-Evaluation MDM Free Text MDM Notes Free Text MDM Notes Pt presents to ED via EMS for inferior STEMI, pt found to have ST elevation in inferior and lateral leads, Dr. Han consulted prior to patient arrival and labeler readied, pt taken to medical lab tech instructor upon arrival. ED Course Medication(s) Ordered Medication(s) Ordered: Blood Formation,Coagulation Sig/Bj Start time Last Medication Dose Route Stop Time Status Admin Heparin Sodium 1,500 ML .STK-MED ONE 01/10 1456 DC 01/10 (Porcine) IV 1514 Bivalirudin 0 .STK-MED ONE 01/10 1455 DC 01/10 .ROUTE 1514 Heparin Sodium 0 .STK-MED ONE 01/10 1455 DC 01/10 (Porcine) .ROUTE 1514 Cardiovascular Drugs Sig/Bj Start time Last Medication Dose Route Stop Time Status Admin Nitroglycerin/ 250 ML .STK-MED ONE 01/10 1456 DC 01/10 Dextrose IV 1514 Lidocaine HCl 0 .STK-MED ONE 01/10 1455 DC 01/10 .ROUTE 1514 Central Nervous System Agents Sig/Bj Start time Last Medication Dose Route Stop Time Status Admin Fentanyl Citrate 0 .STK-MED ONE 01/10 1504 DC 01/10 .ROUTE 1514 Midazolam HCl 0 .STK-MED ONE 01/10 1504 DC 01/10 .ROUTE 1514 Acetaminophen 650 MG Q4H PRN PRN 01/10 1500 AC PO 02/09 1459 Hydrocodone Bitart/ 1 TAB Q4H PRN PRN / 1500 AC Acetaminophen PO 01/20 1459 Hydrocodone Bitart/ 1 TAB Q4H PRN PRN /02 1500 AC Acetaminophen PO 01/20 1459 Diagnostic Agents Sig/Bj Start time Last Medication Dose Route Stop Time Status Admin Iopamidol 0 .STK-MED ONE 01/10 1456 DC 01/10 .ROUTE 1514 Electrolytic, Caloric, And Rajwinder Sig/Bj Start time Last Medication Dose Route Stop Time Status Admin Sodium Chloride 10 ML ASDIR PRN 01/10 1500 AC IV 02/09 1459 Sodium Chloride 1,000 ML .STK-MED ONE 01/10 1457 DC 01/10 IV 1514 Sodium Chloride 50 ML .STK-MED ONE 01/10 1456 DC 01/10 IV 1514 Gastrointestinal Drugs Sig/Bj Start time Last Medication Dose Route Stop Time Status Admin Docusate Sodium 100 MG Q12H PRN PRN 01/10 1500 AC PO 02/09 1459 Ondansetron HCl 4 MG Q4H PRN PRN 01/10 1500 AC / IV 02/09 1459 2227 Consultation Consultation Referral/Consult Name Te Bradley MD Material Attendant Called Cardiology Requested Call Time 1420 Requested Call Date 01/10/19 Call Returned Call returned Call Returned Time 1420 Call Returned Date 01/10/19 Material Attendant Will see patient, Agrees with eval, Agrees with plan, 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 Han and is aware of pt. Portions of this section were scribed by Alyson Paul on 01/10/19 at 1509 Patient Discharge Departure Vital Signs/Condition Vital Signs First Documented: Result Date Time Pulse Ox 98 01/10 1449 B/P 192/113 05/ 1449 B/P Mean 139 / 1449 O2 Delivery Nasal cannula 01/10 1449 O2 Flow Rate 2.437075 / 1449 Temp 98.0 05/ 1449 Pulse 78 05/ 1449 Resp 18 05/ 1449 Last Documented: Result Date Time Pulse Ox 98 05/ 1450 O2 Delivery Nasal cannula 01/10 1450 O2 Flow Rate 2.825651 / 1450 B/P 192/113 05/ 1449 B/P Mean 139 05/ 1449 Temp 98.0 05/ 1449 Pulse 78 05/ 1449 Resp 18 01/10 1449 All vital signs available at the time of this entry have been reviewed. Condition Stable Clinical Impression Clinical Impression Primary Impression: STEMI (ST elevation myocardial infarction) Disposition Decision Admit Admit Physician Name Sam Urrutia MD Admit Physician Hospitalist Request Time 1503 Request Date 01/10/19 )( Admission Accepts Yes )( Accepted Time 1503 )( Accepted Date 01/10/19 Call Information will see patient, agrees with eval, agrees with plan Discharge/Care Plan Counseled Regarding Diagnosis, Lab results, Imaging studies, Need for admission Admit Note I have spoken with the patient and/or caregivers. I have explained the patient's condition, diagnoses and treatment plan based on the information available to me at this time. I have answered the patient's and/or caregiver's questions and addressed any concerns. The patient and/or caregivers have as good an understanding of the patient's diagnosis, condition and treatment plan as can be expected at this point. The patient has been stabilized within the capability of the emergency department. The patient will be transported for further care and management or will be moved to an observation or inpatient service. I have communicated with the staff or medical practitioner taking over this patient's care. Supervising Physician Note Scribe Statement Alyson Paul, 01/10/19 1453, scribing for and in the presence of Dr. Mobley. Signed By: Alyson Paul, 01/10/19 0151 Provider Scribed Statement I personally performed the services described in this documentation and reviewed the documentation that was dictated to the scribe(s) in my presence, and it accurately records my words and actions. Nate Mobley, 01/11/19 Portions of this section were scribed by Alyson Paul on 01/10/19 at 1453 at 1053 [facility] #: [id number] END OF REPORT [facility]
--- NOTE | 2025-01-27 16:44 | RAD REPORT ---
EXAM: Chest Single View HISTORY: 79 years Male SOB COMPARISON: 03/27/2023 FINDINGS: LUNGS/PLEURA: Likely moderate layering pleural effusions with widespread interstitial and airspace di sease. CARDIAC/MEDIASTINUM: Moderate cardiomegaly. UPPER ABDOMEN: No significant abnormality. BONES: No acute abnormality. LINES/TUBES/OTHER: Endotracheal tube at the aortic arch. NG tube below diaphragm. IMPRESSION: Pulmonary edema with layering pleural effusions. ET tube and NG tube in satisfactory position.
--- NOTE | 2025-01-27 16:47 | RAD REPORT ---
EXAMINATION: Head Brain Wo Cont CLINICAL INDICATION: Male, 79 years old.DECLINING STATE TECHNIQUE: Axial CT images from the skull base to the vertex without intravenous contrast. Coronal an d sagittal reformatted images were created from the data set. One or more of the following dose reduction techniques were used: Automated exposure control, adjustment of the mA and/or kV according to patient size, and/or iterative reconstruction. Unless otherwise specified, incidental findings do not require dedicated imaging follow-up. [id number]. COMPARISON: No prior exam. FINDINGS: INTRACRANIAL: No acute intracranial hemorrhage. No hydrocephalus. No mass effect or midline shift. Mi ld chronic small vessel ischemic changes.Moderate cerebral atrophy. VASCULATURE: No visualized abnormalities in the arteries or dural venous sinuses. SCALP/SKULL: No calvarial fracture identified. No acute soft tissue abnormality. SINUSES: The visualized paranasal sinuses are mostly clear. No significant mastoid fluid. Endotrachea l tube and enteric tube. IMPRESSION: No acute intracranial abnormality.
[2025-01-27 17:42] LABS: Blood O2 Saturation 95.3 % (92-98.5)
[2025-01-27 17:43] LABS: Arterial Blood Carboxyhemoglob 1.1 % (0-1.5); Blood Gas Oxyhemoglobin 92.6 % (94-97); Blood Gas THB 17.4 g/dl (12-18)
[2025-01-27] MEDS ORDERED: FUROSEMIDE 40 MG/4 ML VIAL ONE (17:43)
[2025-01-27 17:50] LABS: Absolute Lymphocytes (CBC) 0.3 K/uL (0.7-4.9); Absolute Monocytes 1.8 K/uL (0.1-1.3); Absolute Neutrophil 11.6 K/uL (1.8-8.0); Basophils % 0.2 % (0-1.3); Hematocrit 52.6 % (39.6-49.0); Hemoglobin 17.1 g/dL (13.6-17.9); MCH 30.2 pg (27.0-35.0); MCHC 32.5 g/dL (32.0-36.0); MCV 92.8 fL (80-100); MPV 9.6 fL (7.6-11.3); Monocytes % 13.1 % (3.3-12.3); Neutrophils % 84.7 % (41.7-73.7); Nucleated Red Blood Cells % 0.2 % (0-0); Platelets 156 thou/uL (152-406); RBC Red Blood Cell Count 5.67 M/uL (4.33-5.43); Red Cell Distribution Width 15.5 % (12.1-15.2)
[2025-01-27 17:52] LABS: PT Prothrombin Time 18.9 SECONDS (10-13.0); Protime INR 1.7
[2025-01-27 17:55] LABS: Barbiturates NEGATIVE (NEGATIVE); Benzodiazepines NEGATIVE (NEGATIVE); Cocaine NEGATIVE (NEGATIVE); METHAMPHETAM NEGATIVE (NEGATIVE); Methadone NEGATIVE (NEGATIVE); Opiates NEGATIVE (NEGATIVE); Phencyclidine NEGATIVE (NEGATIVE); Sqamous Epithelial <5 /HPF (None Seen); THC Cannibis NEGATIVE (NEGATIVE); Urine Bacteria None Seen /HPF (<20); Urine Bilirubin 1+ (Negative); Urine Blood 1+ (Negative); Urine Clarity Extremely Turbid (Clear); Urine Color Yellow (Yellow); Urine Culture Reflex Order NOT NEEDED; Urine Glucose NEGATIVE (Negative); Urine Ketones NEGATIVE (Negative); Urine Microscopic Reflex YN ORDER UMIC; Urine Mucus Slight /HPF (None Seen); Urine Nitrite NEGATIVE (Negative); Urine Protein 2+ (Negative); Urine Urobilinogen 2+ (Normal); Urine WBC None Seen /HPF (<5); Urine pH 5.5 (5.0-7.0)
[2025-01-27 18:15] LABS: ALT/SGPT 881 U/L (16-61); AST/SGOT 1493 U/L (15-37); Albumin 3.1 g/dL (3.4-5.0); Albumin/Globulin Ratio 0.8 (1.1-1.8); Alkaline Phosphatase 134 U/L (45-117); Anion Gap 12.8 mEq/L (5.0-15.0); BUN Blood Urea Nitrogen 45 mg/dL (7-18); Bicarbonate 25 mEq/L (21-32); Bilirubin Direct 0.9 mg/dL (0-0.2); Bilirubin Indirect, Calculated 1.6 mg/dL (0.2-0.8); Bilirubin Total 2.5 mg/dL (0.2-1.0); Globulin 4.1 g/dL (2.3-3.5); Glomerular Filtration Rate 35 ml/min (=/>90); Glucose Level 106 mg/dL (74-106); NT PRO-BNP 23960 pg/mL (<450); Potassium 4.8 mEq/L (3.5-5.1); Protein, Total 7.2 g/dL (6.4-8.2); Sodium Level 137 mEq/L (136-145)
[2025-01-27 18:20] LABS: Troponin High Sensitivity 83.9 pg/mL (<58.9)
[2025-01-27] MEDS ORDERED: MIDAZOLAM HCL 5 ML ONE ×2 (18:58→20:39)
--- NOTE | 2025-01-27 19:14 | RAD REPORT ---
EXAM: Chest Abdomen Pelvis W Cont CLINICAL INDICATION: Male, 79 years DYSPNEA TECHNIQUE: CT chest, abdomen and pelvis was performed, with IV contrast, as per department protocol. Axial, sagittal and coronal reconstructions were obtained. One or more of the following dose reduction techniques were used: Automated exposure control, adjustment of the mA and/or kV according to the patient size, and/or iterative reconstruction. Unless otherwise specified, incidental findings do not require dedicated imaging follow-up. [id number]. COMPARISON: Chest CT 03/27/2023 FINDINGS: ---THORAX--- LOWER NECK AND CHEST WALL: Visualized thyroid gland and soft tissues are normal. MEDIASTINUM AND LYMPH NODES: No mediastinal mass or fluid collection. Normal size mediastinal, hilar, and axillary lymph nodes. THORACIC AORTA: No thoracic aortic aneurysm. Atherosclerotic changes are present. PULMONARY ARTERIES: Caliber is within normal limits. No pulmonary emboli identified. HEART: Moderate cardiomegaly. Severe coronary artery calcifications.No significant pericardial effusi on. LUNGS AND AIRWAYS: Motion artifact. Atelectasis is resolved pleural effusions. Motion artifact limits evaluation for pulmonary nodule detection. Endotracheal tube above the devin in satisfactory position. PLEURA: Moderate bilateral pleural effusions with underlying atelectasis. No pneumothorax. ---ABDOMEN/PELVIS--- UPPER GI: Enteric tube in the stomach. LIVER: Hepatic steatosis, but otherwise unremarkable. GALLBLADDER/BILE DUCTS: Nonspecific gallbladder wall thickening which is likely reactive.? PANCREAS: Atrophy but no acute findings. SPLEEN: Unremarkable. ADRENALS: No adrenal masses. KIDNEYS AND URETERS: No hydronephrosis.Low density and/or too small to characterize renal lesions whi ch are statistically benign. ABDOMINAL AORTA AND OTHER VESSELS: Severe atherosclerotic changes. No aortic aneurysm. PERITONEUM: Mild ascites. LYMPH NODES: No pathologic lymphadenopathy. ABDOMINAL WALL: Body wall edema. Umbilical and ventral hernias. Inguinal hernias. SMALL BOWEL/COLON: Small bowel has normal course and caliber. No colonic wall thickening or pericolon ic inflammatory changes.Normal appendix. Mild diverticulosis without diverticulitis. URINARY BLADDER: Boateng catheter. REPRODUCTIVE ORGANS: No pathologic process. ---COMBINED--- MUSCULOSKELETAL: Multilevel degenerative changes in the spine. No acute fracture. ADDITIONAL FINDINGS: None. IMPRESSION: Moderate bilateral pleural effusions with likely underlying atelectasis. Addition, there is mild asci mirta and significant body wall edema. Cardiomegaly with reflux of contrast into the hepatic veins would suggest congestive heart failure and possible right heart strain. Incidental findings as noted above,
--- NOTE | 2025-01-27 19:33 | ER ---
Nurse's Notes [facility] Name: Ag Goss Age: 79 yrs Sex: Male : 1945 Arrival Date: 01/27/2025 Time: 15:57 Bed 2 Private MD: Diagnosis: Acute and subacute hepatic failure;Encephalopathy, unspecified;Heart failure, unspecified;Altered mental status, unspecified Presentation: 01/27 16:05 Care prior to arrival: Assisted ventilation, Oral intubation, ET tube 7.0, 25 at the aa5 lower teeth. IV initiated. 22 GA, in the left wrist, Glucose check: 104. 16:05 Acuity: JANAE 1 aa5 16:05 Care prior to arrival: Medication(s) given: Normal saline infusion, 250mls, BP aa5 increased to 100 systolic post bolus administration reported by EMS. Narcan intranasal and IVP without improvement. EMS reports administering 30 mg Etomidate and 100 mg Rocuronium for intubation. Also reports administering epinephrine 0.1mls to treat hypotension. 16:05 Chief complaint: EMS states: pt was found unresponsive, sitting down, RR 10, cyanotic, aa5 hypoxic (O2 sat 70%), and hypotensive (BP 60/30) upon scene arrival. Pt intubated by EMS DIRECTOR TRANSLATIONAL. 16:05 Coronavirus screen: At this time, the client does not indicate any symptoms associated aa5 with coronavirus-19. Ebola Screen: Unable to complete the Ebola screening because:. Initial Sepsis Screen: Does the patient meet any 2 criteria? No. Patient's initial sepsis screen is negative. Does the patient have a suspected source of infection? No. Patient's initial sepsis screen is negative. Risk Assessment: Do you want to hurt yourself or someone else? Unable to obtain. Onset of symptoms was January 27, 2025. 16:05 Method Of Arrival: EMS: [facility] aa5 Historical: - Allergies: 16:09 No Known Allergies; aa5 - PMHx: 16:09 Hypertensive disorder; Myocardial infarction; stomach cancer; CHF (Unknown); aa5 - PSHx: 16:09 stomach tumor removed; aa5 - Immunization history:: Adult Immunizations unknown. - Infectious Disease History:: unable to complete . - Family history:: not pertinent. - Social history:: Smoking status: unknown Patient uses alcohol. Screenin:05 [facility] ED Fall Risk Assessment (Adult) History of falling in the last 3 months, aa5 including since admission Confusion or Disorientation Yes (5 pts) Intoxicated or Sedated Impaired Gait Mobility Assist Device Used Altered Elimination Score/Fall Risk Level 3 or more points = High Risk Oriented to surroundings, Maintained a safe environment, Educated pt \T\ family on fall prevention, incl call for assistance when getting out of bed. Abuse screen: No signs of abuse noted. Nutritional screening: No deficits noted. Tuberculosis screening: unable to complete . Assessment: 16:05 General: Behavior is unresponsive. Pain: Unable to use pain scale. Patient is aa5 intubated. Patient is unresponsive. Neuro: Level of Consciousness is unresponsive, Oriented to none Pt unable to follow commands, pupils are 2 mm in size, equal, round, and sluggishly reactive to light. . Cardiovascular: Heart tones S1 S2 present Rhythm is regular. Respiratory: Airway via oral intubation Respiratory effort is assisted Respiratory pattern is regular, symmetrical, Breath sounds are diminished bilaterally. GI: Abdomen is round non-distended, Abd is soft X 4 quads. : No signs and/or symptoms were reported regarding the genitourinary system. EENT: No signs and/or symptoms were reported regarding the EENT system. Derm: Skin is dry, Skin is normal, Skin temperature is cool. Musculoskeletal: 4+ pitting edema noted to roberta legs, weeping to roberta lower legs noted. 16:28 Reassessment: Pt to CT now VIA stretcher, on monitors with RONEY Stark and RT Leslie. ss 18:00 Neuro: Level of Consciousness is unresponsive, Oriented to none unable to follow aa5 commands. . Respiratory: Airway via oral intubation Respiratory effort is assisted Respiratory pattern is regular, symmetrical. Derm: Skin is dry, Skin is normal, Skin temperature is cool. 18:00 Reassessment: No changes from previously documented assessment. aa5 19:00 Reassessment: Pt back from CT scan, accompanied by me and RT, pt was noted to be moving aa5 lower jaw and with positive gag reflex, MD was notified. . 20:00 Reassessment: Pt remains intubated, Appears more agitated, SEE MAR for orders. jb4 21:36 Reassessment: Pt now resting peacefully in bed, remains intubated, OG tube to low jb4 intermittent suction. Pt mouth suctioned. No s/s of pain or distress noted. Family at bedside. 22:41 Reassessment: Patient appears in no apparent distress at this time. No changes from jb4 previously documented assessment. Patient and/or family updated on plan of care and expected duration. Pain level reassessed. 23:29 Reassessment: Patient appears in no apparent distress at this time. No changes from jb4 previously documented assessment. Patient and/or family updated on plan of care and expected duration. Pain level reassessed. 01/28 00:30 Reassessment: Patient appears in no apparent distress at this time. No changes from jb4 previously documented assessment. Patient and/or family updated on plan of care and expected duration. Pain level reassessed. 01:30 Reassessment: Patient appears in no apparent distress at this time. No changes from jb4 previously documented assessment. Patient and/or family updated on plan of care and expected duration. Pain level reassessed. 02:30 Reassessment: Pt continues to rest peacefully in bed, drips infusing without issue, jb4 remains intubated, family is at the bedside. 03:30 Reassessment: Patient appears in no apparent distress at this time. No changes from jb4 previously documented assessment. Patient and/or family updated on plan of care and expected duration. Pain level reassessed. 04:05 Reassessment: LJ EMS at bedside, report given to EMS. Pt continues to show no s/s of jb4 pain or distress noted, report given to receiving facility and notified EMS will be en route with pt shortly. Vital Signs: 01/27 16:07 Weight 94.35 kg (M); aa5 16:25 BP 139 / 85; Pulse 73; Resp 16 A; Pulse Ox 98% on ETT vent; aa5 16:50 BP 138 / 84; Pulse 62; Resp 16 A; Temp 95.1(Ca); Pulse Ox 98% on ETT vent; aa5 17:05 BP 149 / 92; Pulse 65; Resp 16 A; Pulse Ox 97% on ETT vent; aa5 17:50 BP 136 / 86; Pulse 67; Resp 18 A; Temp 96(Ca); Pulse Ox 95% on ETT vent; aa5 18:15 BP 150 / 84; Pulse 64; Resp 16 A; Temp 96(Ca); Pulse Ox 95% on ETT vent; aa5 18:30 BP 139 / 88; Pulse 63; Resp 16 A; Pulse Ox 95% on ETT vent; aa5 19:04 BP 128 / 84; Pulse 75; Resp 16 A; Temp 96.2(Ca); Pulse Ox 99% on ETT vent; aa5 21:30 BP 104 / 74; Pulse 65; Resp 18; Temp 96.9(Ca); Pulse Ox 99% on ETT vent; FiO2 100 %; jb4 22:30 BP 102 / 65; Pulse 60; Resp 14; Temp 97.4(Ca); Pulse Ox 98% on ETT vent; FiO2 100 %; jb4 23:29 BP 104 / 68; Pulse 59; Resp 14; Temp 97.9(Ca); Pulse Ox 100% on ETT vent; FiO2 100 %; jb4 01/28 00:30 BP 99 / 63; Pulse 56; Resp 16; Temp 98.3; Pulse Ox 98% on ETT vent; FiO2 100 %; jb4 01:30 BP 105 / 66; Pulse 56; Resp 14; Temp 98.3; Pulse Ox 98% on ETT vent; FiO2 100 %; jb4 02:30 BP 116 / 65; Pulse 57; Resp 16; Temp 98.3(Ca); Pulse Ox 100% on ETT vent; FiO2 80 %; jb4 03:30 BP 109 / 70; Pulse 61; Resp 16; Temp 98.3(Ca); Pulse Ox 100% on ETT vent; FiO2 80 %; jb4 ED Course: 01/27 16:05 Patient arrived in ED. bd 16:05 Arm band placed on. aa5 16:05 Patient has correct armband on for positive identification. Placed in gown. Bed in low aa5 position. Side rails up X2. Client placed on continuous cardiac and pulse oximetry monitoring. NIBP monitoring applied. jewel bearing facer on. Pulse ox on. NIBP on. 16:06 Kayla Graham MD is Attending Physician. gb1 16:07 Mi Barbosa, RONEY is Primary Nurse. aa5 16:09 Triage completed. aa5 16:20 NGT: inserted 14 Fr. other orally verified return of gastric contents, Placement aa5 verified by X-ray, to intermittent suction. Patient tolerated well, no gag reflex noted during insertion . 16:27 Basic Metabolic Panel Sent. ss 16:27 CBC with Diff Sent. ss 16:27 LFT's Sent. ss 16:27 NT PRO-BNP Sent. ss 16:27 PT-INR Sent. ss 16:27 Troponin HS Sent. ss 16:28 Maintain EMS IV. Dressing intact. Good blood return noted. Gauge \T\ site: 18 gauge in R ss FA. Flushed with 10 mL NS. 16:28 Maintain EMS IV. Dressing intact. Good blood return noted. Gauge \T\ site: 22 gauge in L ss wrist . Flushed with 10 mL NS. 16:34 XRAY Chest (1 view) In Process Unspecified. EDMS 16:40 CT Head Brain wo Cont In Process Unspecified. EDMS 16:45 Boateng cath inserted, using sterile technique, 16 Fr., by community educator, balloon inflated, to aa5 gravity drainage, urine specimen collected. Patient tolerated well. 16:47 Thermoregulation: Mike blanket applied. aa5 17:00 intact, bleeding controlled, No redness/swelling at site. Pressure dressing applied, 18 aa5 G to R FA dc'd. 17:00 Inserted saline lock: 18 gauge in right wrist, using aseptic technique. Flushed with 10 aa5 mL NS. 17:20 Inserted saline lock: 18 gauge in right EJ, using aseptic technique. Flushed with 10 mL aa5 NS IV inserted by Dennys Blanco RN. 17:25 Lab(s) recollected, by me, sent to lab. aa5 17:35 One-on-one care X 90 minutes. aa5 18:39 attempting to contact transfer center to initiated transfer, called 2 times , Lorna valdivia did answer, initiated transfer to [facility]. 18:52 CT Chest, Abdomen, Pelvis - W/Contrast In Process Unspecified. EDMS 19:00 No provider procedures requiring assistance completed. aa5 19:05 Report given to RONEY Green and RONEY Reyes. aa5 20:37 Attending Physician role handed off by Kayla Graham MD sp4 20:37 Yuri Smith MD is Attending Physician. sp4 21:14 contacted [facility] for updat sonido bed placement. kmf 21:30 attempted to initiate with [facility]- Decline due to not having Hepatology. [facility] 01/28 03:24 pt was accepted [facility] - [address] [id number] bed 12 . Number for nurse to nurse report [facility] [phone]. 03:[address] Middleton. \T\ 0252. Admin approval Sarah Nigel 0258. [facility] to [facility] transfer pt. Administered Medications: 01/27 17:48 Drug: Furosemide IVP 80 mg IVP once; give over 2 minutes Route: IVP; Site: right wrist; aa5 18:00 Follow up: Response: No adverse reaction aa5 19:01 Drug: Midazolam IVP or IV 5 mg IVP once Route: IVP; Site: right wrist; aa5 19:05 Follow up: Response: No adverse reaction aa5 20:10 Drug: Rocephin IV 2 grams IV at bolus once; Given slow IV push per pharmarcy jb4 instructions Route: IV; Rate: bolus; Site: right hand; 20:40 Follow up: Response: No adverse reaction; IV Status: Completed infusion; IV Intake: jb4 100ml 20:48 Drug: Midazolam IVP or IV 5 mg IVP once Route: IVP; Site: right jugular; jb4 21:15 Follow up: Response: No adverse reaction; Marked relief of symptoms jb4 20:54 Drug: Midazolam IVP or IV 0.01 mg/kg/h IV at calculated rate See Administration jb4 Instructions; (Standard concentration: 100 mg / 100 mL NS); Recommended max rate 0.1 mg/kg/hr; Titrate 0.01 mg/kg/hr as often as every 30 minutes to achieve goal (see titration policy); Goal parameter RASS 0 to -2 Route: IV; Rate: calculated rate; Site: left hand; 21:30 Follow up: Rate change 0.02 Titrate jb4 01/28 04:06 Follow up: Response: No adverse reaction; IV Status: Infusion continued upon transfer jb4 01/27 21:00 Drug: vancoMYCIN IVPB 20 mg/kg IVPB once; once over 2 hours; not to exceed 2 grams; jb4 (mix in 250 to 500mL NS) Route: IVPB; Site: right hand; 23:00 Follow up: Response: No adverse reaction; IV Status: Completed infusion; IV Intake: jb4 500ml 21:24 Drug: morphine IVP or IV 6 mg IVP once over 4 mins Route: IVP; Infused Over: 4 mins; jb4 Site: right jugular; 22:00 Follow up: Response: No adverse reaction; Marked relief of symptoms jb4 01/28 00:53 Not Given (Physician Discretion): [id number] mg IVP once; give over 2 minutes jb4 01:30 Drug: Lactulose PO 30 grams 45 ml PO once Volume: 45 ml; Route: PO; jb4 02:38 Follow up: Response: No adverse reaction rg5 01:33 Drug: Albumin IVPB 25 grams 100 ml IVPB once; (Note: Albumin 25% concentration) Volume: jb4 100 ml; Route: IVPB; Site: right jugular; 02:38 Follow up: IV Status: Completed infusion; IV Intake: 50ml rg5 01:34 Drug: Pantoprazole IV 8 mg/hr IV at 25 ml/hr continuous; (Standard dilution is 80 mg in jb4 250 mL NS) Route: IV; Rate: 25 ml/hr; Site: right hand; 04:06 Follow up: Response: No adverse reaction; IV Status: Infusion continued upon transfer jb4 01:34 Drug: Pantoprazole IVP 40 mg IVP once Route: IVP; Site: right hand; jb4 02:38 Follow up: Response: No adverse reaction rg5 Medication: 01/27 19:01 VIS not applicable for this client. aa5 Intake: 20:40 IV: 100ml; Total: 100ml. jb4 23:00 IV: 500ml; Total: 600ml. jb4 01/28 02:38 IV: 50ml; Total: 650ml. rg5 Outcome: 01/27 19:32 ER care complete, transfer ordered by . gb1 01/28 04:07 Transferred by ground EMS to [facility], Transfer form completed. jb4 X-rays sent w/ patient. Condition: stable Discharge instructions given to family, Instructed on the need for transfer, Demonstrated understanding of instructions, 04:08 Patient left the ED. jb4 Signatures: Dispatcher [employer] EDMS Radha Tejeda Audri, RN RN aa5 Khloe Juarez RN RN Driss Avelar RN RN jb4 Yuri Smith MD MD sp4 Kayla Graham MD MD gb1 [facility] Peter Archer RN RN rg5 Corrections: (The following items were deleted from the chart) 01/27 17:55 16:05 Care prior to arrival: Medication(s) given: Normal saline infusion, 250mls, BP aa5 increased to 100 systolic post bolus administration reported by EMS. aa5 18:38 16:05 Chief complaint: EMS states: pt was found unresponsive, sitting down, RR 10, aa5 cyanotic and hypoxic (O2 sat 70%) upon scene arrival. Pt intubated by EMS DIRECTOR TRANSLATIONAL. aa5 19:06 17:25 Initial lab(s) drawn, by me, sent to lab. aa5 aa5 19:13 16:05 Care prior to arrival: Medication(s) given: Normal saline infusion, 250mls, BP aa5 increased to 100 systolic post bolus administration reported by EMS. Narcan intranasal and IVP without improvement. aa5 19:20 16:05 Neuro: Level of Consciousness is unresponsive, Oriented to none aa5 aa5 19:20 16:05 [facility] ED Fall Risk Assessment (Adult) History of falling in the last 3 months, aa5 including since admission Confusion or Disorientation Intoxicated or Sedated Yes (3 pts) Impaired Gait Mobility Assist Device Used Altered Elimination Score/Fall Risk Level 3 or more points = High Risk Oriented to surroundings, Maintained a safe environment, Educated pt \T\ family on fall prevention, incl call for assistance when getting out of bed, aa5 19:23 16:05 Care prior to arrival: Assisted ventilation, Oral intubation, IV initiated. 22 aa5 GA, in the left wrist, Glucose check: 104 aa5
--- NOTE | 2025-01-27 19:33 | EDPHYS ---
Physician Documentation [facility] Name: Ag Goss Age: 79 yrs Sex: Male : 1945 Arrival Date: 01/27/2025 Time: 15:57 Bed 2 Private MD: ED Physician Yuri Smith HPI: 01/27 16:38 This 79 yrs old Male presents to ER via Unassigned with complaints of gb1 Unresponsive. 16:38 79-year-old male was found at home on the couch unresponsive by EMS. Patient's gb1 family stated that he was less responsive this morning but the patient's told that his daughter that he had not slept all night and so he was feeling more tired than usual. Patient's daughter went to his home around 10 AM she did speak with her dad but he was less responsive than he normally is. Patient states that her father patient's daughter stated that he has not been feeling well last few days and she asked anyone to go to the hospital and he had told her no. He has a history of hypertension, [place], stomach cancer and CHF.. 01/28 02:07 Past medical history includes systolic and diastolic CHF, hypertension, myocardial sp4 infarction, stomach cancer, chronic kidney disease. Patient's home medications include amlodipine, metoprolol, furosemide.. Historical: - Allergies: 01/27 16:09 No Known Allergies; aa5 - PMHx: 16:09 Hypertensive disorder; Myocardial infarction; stomach cancer; CHF (Unknown); aa5 - PSHx: 16:09 stomach tumor removed; aa5 - Immunization history:: Adult Immunizations unknown. - Infectious Disease History:: unable to complete . - Family history:: not pertinent. - Social history:: Smoking status: unknown Patient uses alcohol. ROS: 01/28 02:07 Constitutional: Positive for unresponsive condition, otherwise ROS not available sp4 All other systems are negative, Unable to obtain ROS due to altered mental status, Exam: 01/27 16:38 Constitutional: Patient is obtunded and intubated on mechanical ventilation. Patient sp4 is unresponsive. Patient did get etomidate and rocuronium. Head/Face: Normocephalic, atraumatic. Eyes: Pupils equal round and reactive to light, extra-ocular motions intact. Lids and lashes normal. Conjunctiva and sclera are non-icteric and not injected. Cornea within normal limits. Periorbital areas with no swelling, redness, or edema. ENT: Nares patent. No nasal discharge, no septal abnormalities noted. Tympanic membranes are normal and external auditory canals are clear. Oropharynx with no redness, swelling, or masses, exudates, or evidence of obstruction, uvula midline. Mucous membranes moist. Neck: Trachea midline, no thyromegaly or masses palpated, and no cervical lymphadenopathy. Supple, full range of motion without nuchal rigidity, or vertebral point tenderness. No Meningismus. Chest/axilla: Normal chest wall appearance and motion. Nontender with no deformity. No lesions are appreciated. Cardiovascular: Regular rate and rhythm with a normal S1 and S2. No gallops, murmurs, or rubs. Normal PMI, no JVD. No pulse deficits. Respiratory: Lungs have equal breath sounds bilaterally, clear to auscultation and percussion. No rales, rhonchi or wheezes noted. No increased work of breathing, no retractions or nasal flaring. Abdomen/GI: Soft, non-tender, with normal bowel sounds. No distension or tympany. No guarding or rebound. No evidence of tenderness throughout. Skin: Warm, dry with normal turgor. Normal color with no rashes, no lesions, and no evidence of cellulitis. MS/ Extremity: Pulses equal, no cyanosis. Diffuse jaundice Neuro: Nonresponsive male, GCS of 3, intubated Vital Signs: 16:07 Weight 94.35 kg (M); aa5 16:25 BP 139 / 85; Pulse 73; Resp 16 A; Pulse Ox 98% on ETT vent; aa5 16:50 BP 138 / 84; Pulse 62; Resp 16 A; Temp 95.1(Ca); Pulse Ox 98% on ETT vent; aa5 17:05 BP 149 / 92; Pulse 65; Resp 16 A; Pulse Ox 97% on ETT vent; aa5 17:50 BP 136 / 86; Pulse 67; Resp 18 A; Temp 96(Ca); Pulse Ox 95% on ETT vent; aa5 18:15 BP 150 / 84; Pulse 64; Resp 16 A; Temp 96(Ca); Pulse Ox 95% on ETT vent; aa5 18:30 BP 139 / 88; Pulse 63; Resp 16 A; Pulse Ox 95% on ETT vent; aa5 19:04 BP 128 / 84; Pulse 75; Resp 16 A; Temp 96.2(Ca); Pulse Ox 99% on ETT vent; aa5 21:30 BP 104 / 74; Pulse 65; Resp 18; Temp 96.9(Ca); Pulse Ox 99% on ETT vent; FiO2 100 %; jb4 22:30 BP 102 / 65; Pulse 60; Resp 14; Temp 97.4(Ca); Pulse Ox 98% on ETT vent; FiO2 100 %; jb4 23:29 BP 104 / 68; Pulse 59; Resp 14; Temp 97.9(Ca); Pulse Ox 100% on ETT vent; FiO2 100 %; jb4 01/28 00:30 BP 99 / 63; Pulse 56; Resp 16; Temp 98.3; Pulse Ox 98% on ETT vent; FiO2 100 %; jb4 01:30 BP 105 / 66; Pulse 56; Resp 14; Temp 98.3; Pulse Ox 98% on ETT vent; FiO2 100 %; jb4 02:30 BP 116 / 65; Pulse 57; Resp 16; Temp 98.3(Ca); Pulse Ox 100% on ETT vent; FiO2 80 %; jb4 03:30 BP 109 / 70; Pulse 61; Resp 16; Temp 98.3(Ca); Pulse Ox 100% on ETT vent; FiO2 80 %; jb4 MDM: 01/27 16:06 Medical Screening Exam initiated gb1 19:28 Data reviewed: vital signs, nurses notes, lab test result(s), amylase and lipase, gb1 cardiac enzymes, troponin i, CBC, drug level(s), electrolytes, hepatic panel, urinalysis, urine drug screen, radiologic studies, CT scan. ED course: 79-year-old male with a history of alcoholism is here with likely altered mental status secondary to hepatic encephalopathy and decompensated cirrhosis with ascites. Patient arrived to me intubated and on mechanical ventilation. Patient is minimally responsive at this time and I do believe he is suffering from hepatorenal syndrome as well. He also has signs symptoms consistent with acute heart failure decompensated likely from hepatic congestion and cardiorenal syndrome. Patient will be transferred to higher level of care at a facility that has hepatology. I did not appreciate any liver or pancreatic masses on the patient's CT abdomen and pelvis. I will cover for SBP as patient does have a mildly elevated lactic acid as well. Ultrasound in the patient's care while they are still here in the emergency department is Dr. Smith at 1999 pending transfer to [facility] the [facility].. 01/28 02:06 ED course: EXAM: Chest Abdomen Pelvis W Cont CLINICAL INDICATION: Male, 79 years sp4 DYSPNEA TECHNIQUE: CT chest, abdomen and pelvis was performed, with IV contrast, as per department protocol. Axial, sagittal and coronal reconstructions were obtained. One or more of the following dose reduction techniques were used: Automated exposure control, adjustment of the mA and/or kV according to the patient size, and/or iterative reconstruction. Unless otherwise specified, incidental findings do not require dedicated imaging follow-up. [id number]. COMPARISON: Chest CT 03/27/2023 FINDINGS: ---THORAX--- LOWER NECK AND CHEST WALL: Visualized thyroid gland and soft tissues are normal. MEDIASTINUM AND LYMPH NODES: No mediastinal mass or fluid collection. Normal size mediastinal, hilar, and axillary lymph nodes. THORACIC AORTA: No thoracic aortic aneurysm. Atherosclerotic changes are present. PULMONARYARTERIES: Caliber is within normal limits. No pulmonary emboli identified. HEART: Moderate cardiomegaly. Severe coronary artery calcifications.No significant pericardial effusion. LUNGS AND AIRWAYS: Motion artifact. Atelectasis is resolved pleural effusions. Motion artifact limits evaluation for pulmonary nodule detection. Endotracheal tube above the devin in satisfactory position. PLEURA: Moderate bilateral pleural effusions with underlying atelectasis. No pneumothorax. ---ABDOMEN/PELVIS--- UPPER GI: Enteric tube in the stomach. LIVER: Hepatic steatosis, but otherwise unremarkable. GALLBLADDER/BILE DUCTS: Nonspecific gallbladder wall thickening which is likely reactive.? PANCREAS: Atrophy but no acute findings. SPLEEN: Unremarkable. ADRENALS: No adrenal masses. KIDNEYS AND URETERS: No hydronephrosis.Low density and/or too small to characterize renal lesions which are statistically benign. ABDOMINAL AORTA AND OTHER VESSELS: Severe atherosclerotic changes. No aortic aneurysm. PERITONEUM: Mild ascites. LYMPH NODES: No pathologic lymphadenopathy. ABDOMINAL WALL: Body wall edema. Umbilical and ventral hernias. Inguinal hernias. SMALL BOWEL/COLON: Small bowel has normal course and caliber. No colonic wall thickening or pericolonic inflammatory changes.Normal appendix. Mild diverticulosis without diverticulitis. URINARYBLADDER: Boateng catheter. REPRODUCTIVE ORGANS: No pathologic process. ---COMBINED--- MUSCULOSKELETAL: Multilevel degenerative changes in the spine. No acute fracture. ADDITIONAL FINDINGS: None. IMPRESSION: Moderate bilateral pleural effusions with likely underlying atelectasis. Addition, there is mild ascites and significant body wall edema. Cardiomegaly with reflux of contrast into the hepatic veins would suggest congestive heart failure and possible right heart strain. Incidental findings as noted above, . 01/27 16:07 Order name: Basic Metabolic Panel; Complete Time: 18:22 01/27 16:07 Order name: CBC with Diff; Complete Time: 18:20 01/27 16:07 Order name: LFT's; Complete Time: 18:22 01/27 16:07 Order name: NT PRO-BNP; Complete Time: 18:22 01/27 16:07 Order name: PT-INR; Complete Time: 17:56 01/27 16:07 Order name: Troponin HS; Complete Time: 18:22 01/27 16:07 Order name: UA Rfx Efrem Cult if indicated; Complete Time: 17:56 01/27 16:41 Order name: UDS; Complete Time: 17:56 01/27 16:41 Order name: Ethanol; Complete Time: 18:20 01/27 16:41 Order name: Tylenol Level; Complete Time: 18:22 01/27 16:41 Order name: Salicylate; Complete Time: 19:15 01/27 16:49 Order name: ABG; Complete Time: 17:56 01/27 16:51 Order name: Lactate w/ 2H reflex if indic.; Complete Time: 18:22 01/27 16:51 Order name: Blood Culture Adult (2) 01/27 18:23 Order name: Ghost Lactate-NO COLLECT Timer; Complete Time: 22:13 EDMS 01/27 21:23 Order name: Lactate Sepsis 2 HR Follow-up; Complete Time: 22:13 EDMS 01/27 23:34 Order name: AMMONIA; Complete Time: 00:27 sp4 01/27 16:07 Order name: XRAY Chest (1 view); Complete Time: 16:48 01/27 17:06 Interpretation: Abnormal. 01/27 16:07 Order name: CT Head Brain wo Cont; Complete Time: 16:48 01/27 18:25 Order name: CT Chest, Abdomen, Pelvis - W/Contrast; Complete Time: 19:15 01/27 16:07 Order name: Cardiac monitoring; Complete Time: 16:11 01/27 16:07 Order name: EKG - Nurse/Tech; Complete Time: 16:11 01/27 16:07 Order name: IV Saline Lock; Complete Time: 16:11 01/27 16:07 Order name: Labs collected and sent; Complete Time: 16:11 01/27 16:07 Order name: O2 Per Protocol; Complete Time: 16:11 01/27 16:07 Order name: O2 Sat Monitoring; Complete Time: 16:11 01/27 16:07 Order name: Boateng; Complete Time: 17:52 01/27 16:43 Order name: Labs - recollect needed: lav, blue and light green; Complete Time: 17:52 ss Administered Medications: 01/27 17:48 Drug: Furosemide IVP 80 mg IVP once; give over 2 minutes Route: IVP; Site: right wrist; aa5 18:00 Follow up: Response: No adverse reaction aa5 19:01 Drug: Midazolam IVP or IV 5 mg IVP once Route: IVP; Site: right wrist; aa5 19:05 Follow up: Response: No adverse reaction aa5 20:10 Drug: Rocephin IV 2 grams IV at bolus once; Given slow IV push per pharmarcy jb4 instructions Route: IV; Rate: bolus; Site: right hand; 20:40 Follow up: Response: No adverse reaction; IV Status: Completed infusion; IV Intake: jb4 100ml 20:48 Drug: Midazolam IVP or IV 5 mg IVP once Route: IVP; Site: right jugular; jb4 21:15 Follow up: Response: No adverse reaction; Marked relief of symptoms jb4 20:54 Drug: Midazolam IVP or IV 0.01 mg/kg/h IV at calculated rate See Administration jb4 Instructions; (Standard concentration: 100 mg / 100 mL NS); Recommended max rate 0.1 mg/kg/hr; Titrate 0.01 mg/kg/hr as often as every 30 minutes to achieve goal (see titration policy); Goal parameter RASS 0 to -2 Route: IV; Rate: calculated rate; Site: left hand; 21:30 Follow up: Rate change 0.02 Titrate [facility] 01/28 04:06 Follow up: Response: No adverse reaction; IV Status: Infusion continued upon transfer [facility] 01/27 21:00 Drug: vancoMYCIN IVPB 20 mg/kg IVPB once; once over 2 hours; not to exceed 2 grams; jb4 (mix in 250 to 500mL NS) Route: IVPB; Site: right hand; 23:00 Follow up: Response: No adverse reaction; IV Status: Completed infusion; IV Intake: jb4 500ml 21:24 Drug: morphine IVP or IV 6 mg IVP once over 4 mins Route: IVP; Infused Over: 4 mins; jb4 Site: right jugular; 22:00 Follow up: Response: No adverse reaction; Marked relief of symptoms [facility] 01/28 00:53 Not Given (Physician Discretion): [id number] mg IVP once; give over 2 minutes jb4 01:30 Drug: Lactulose PO 30 grams 45 ml PO once Volume: 45 ml; Route: PO; jb4 02:38 Follow up: Response: No adverse reaction rg5 01:33 Drug: Albumin IVPB 25 grams 100 ml IVPB once; (Note: Albumin 25% concentration) Volume: jb4 100 ml; Route: IVPB; Site: right jugular; 02:38 Follow up: IV Status: Completed infusion; IV Intake: 50ml rg5 01:34 Drug: Pantoprazole IV 8 mg/hr IV at 25 ml/hr continuous; (Standard dilution is 80 mg in jb4 250 mL NS) Route: IV; Rate: 25 ml/hr; Site: right hand; 04:06 Follow up: Response: No adverse reaction; IV Status: Infusion continued upon transfer jb4 01:34 Drug: Pantoprazole IVP 40 mg IVP once Route: IVP; Site: right hand; jb4 02:38 Follow up: Response: No adverse reaction rg5 Disposition: 01/27 19:28 Critical Care:. gb1 Disposition Summary: 01/27/25 19:32 Transfer Ordered Notes: Transfer Location: [facility] gb1 Reason: Higher level of care gb1 Condition: Critical gb1 Problem: an acute exacerbation gb1 Symptoms: have worsened gb1 Accepting Physician: MICU(01/28/25 04:08) jb4 Diagnosis - Acute and subacute hepatic failure gb1 - Encephalopathy, unspecified gb1 - Heart failure, unspecified gb1 - Altered mental status, unspecified gb1 Forms: - Medication Reconciliation Form gb1 - SBAR form gb1 Critical care time excluding procedures: 19:28 Critical care time: Bedside Care: 150 minutes, Consultation: 45 minutes, Family gb1 Intervention: 65 minutes. Total time: 260 minutes Signatures: Dispatcher [employer] EDMS Mi Barbosa, RN RN aa5 Khloe Juarez RN RN ss Driss Randall RN RN jb4 Yuri Smith MD MD sp4 Kayla Graham MD MD gb1 Peter Archer RN rg5 Corrections: (The following items were deleted from the chart) 16:08 16:08 BASIC METABOLIC PANEL+C.LAB.BRZ ordered. EDMS EDMS 16:08 16:08 CBC+H.LAB.BRZ ordered. EDMS EDMS 16:08 16:08 HEPATIC FUNCTION+C.LAB.BRZ ordered. EDMS EDMS 16:08 16:08 PROBNP+C.LAB.BRZ ordered. EDMS EDMS 16:08 16:08 PROTIME (+INR)+COAG.LAB.BRZ ordered. EDMS EDMS 16:08 16:08 Troponin High Sensitivity+C.LAB.BRZ ordered. EDMS EDMS 16:08 16:08 UA Rfx Efrem Cult if indicated+U.LAB.BRZ ordered. EDMS EDMS 16:08 16:08 Chest Single View+RAD.RAD.BRZ ordered. EDMS EDMS 16:08 16:08 Head Brain Wo Cont+CT.RAD.BRZ ordered. EDMS EDMS 16:41 16:41 URINE DRUG SCREEN+UC.LAB.BRZ ordered. EDMS EDMS 16:41 16:41 ETHANOL+C.LAB.BRZ ordered. EDMS EDMS 16:41 16:41 ACETAMINOPHEN+C.LAB.BRZ ordered. EDMS EDMS 16:41 16:41 SALICYLATE+C.LAB.BRZ ordered. EDMS EDMS 19:33 19:32 MICU gb1 gb1 01/28 02:09 01/27 16:38 Constitutional: Patient is obtunded and intubated on mechanical sp4 ventilation. Patient is unresponsive. Patient did get etomidate and rocuronium. Head/Face: Normocephalic, atraumatic. Eyes: Pupils equal round and reactive to light, extra-ocular motions intact. Lids and lashes normal. Conjunctiva and sclera are non-icteric and not injected. Cornea within normal limits. Periorbital areas with no swelling, redness, or edema. ENT: Nares patent. No nasal discharge, no septal abnormalities noted. Tympanic membranes are normal and external auditory canals are clear. Oropharynx with no redness, swelling, or masses, exudates, or evidence of obstruction, uvula midline. Mucous membranes moist. Neck: Trachea midline, no thyromegaly or masses palpated, and no cervical lymphadenopathy. Supple, full range of motion without nuchal rigidity, or vertebral point tenderness. No Meningismus. Chest/axilla: Normal chest wall appearance and motion. Nontender with no deformity. No lesions are appreciated. Cardiovascular: Regular rate and rhythm with a normal S1 and S2. No gallops, murmurs, or rubs. Normal PMI, no JVD. No pulse deficits. Respiratory: Lungs have equal breath sounds bilaterally, clear to auscultation and percussion. No rales, rhonchi or wheezes noted. No increased work of breathing, no retractions or nasal flaring. Abdomen/GI: Soft, non-tender, with normal bowel sounds. No distension or tympany. No guarding or rebound. No evidence of tenderness throughout. Skin: Warm, dry with normal turgor. Normal color with no rashes, no lesions, and no evidence of cellulitis. MS/ Extremity: Pulses equal, no cyanosis. Neurovascular intact. Full, normal range of motion. Neuro: Awake and alert, GCS 15, oriented to person, place, time, and situation. Cranial nerves II-XII grossly intact. Motor strength 5/5 in all extremities. Sensory grossly intact. Cerebellar exam normal. Normal gait. gb1 01/28 04:08 01/27 19:33 MICU gb1 jb4
[2025-01-27] MEDS ORDERED: VANCOMYCIN 1 GM/VIAL ONE (20:02)
[2025-01-27] MEDS ORDERED: CEFTRIAXONE 2000 MG/VIAL ONE (20:03)
[2025-01-27] MEDS ORDERED: NA CHLORIDE 0.9% 100 ML ONE (20:03)
[2025-01-27] MEDS ORDERED: NA CHLORIDE 0.9% 500 ML ONE (20:03)
[2025-01-27] MEDS ORDERED: MIDAZOLAM HCL IN 0.9 % NACL/PF 100 MG/100 ML BAG IVPB ONE (20:38)
[2025-01-27] MEDS ORDERED: MORPHINE 4 MG/ML SYR ONE (21:20)
[2025-01-27] MEDS ORDERED: MORPHINE 2 MG/ML SYR ONE (21:20)
[2025-01-28] MEDS ORDERED: NA CHLORIDE 0.9% 250 ML ONE (00:48)
[2025-01-28] MEDS ORDERED: PANTOPRAZOLE 40 MG INJ ONE (00:48)
[2025-01-28] MEDS ORDERED: FUROSEMIDE 40 MG/4 ML VIAL ONE (00:48)
[2025-01-28] MEDS ORDERED: ALBUMIN HUMAN 25% 100 ML IV ONE (00:48)
[2025-01-28] MEDS ORDERED: LACTULOSE 20 GM/30 ML UCUP ONE (00:49)
[2025-01-28 04:50] VITALS: TEMP 98.3
[2025-01-28 04:52] VITALS: O2SAT 100
[2025-01-28 04:53] VITALS: BP 109/70
== END 2025-01-28 04:08 | disposition short-term general hospital (02) ==
LOC: ER 15:57
DX: K72.00 Acute and subacute hepatic failure without coma (principal); G93.40 Encephalopathy, unspecified; I50.9 Heart failure, unspecified; J90 Pleural effusion, not elsewhere classified; I10 Essential (primary) hypertension; I25.2 Old myocardial infarction; Z85.028 Personal history of other malignant neoplasm of stomach
CPT/HCPCS: 93005; 87040 ×2; 85025; 81001; 80048; 36415; 82140; 87205; 85610; 80076; 83605 ×2; 84484; 83880; 80307; 70450; 71260; 74177; 71045; 82805; 80143; 80179; 82077; 94002; 94003; 31500; Q9967; J2250 ×3; J1938; J2470; J3370; J2270; J0696; P9047; J7050; J7040

== ENCOUNTER 2025-04-11 14:20 | Inpatient (IN) | payer OTHER ==
[2025-04-11 16:18] LABS: Absolute Lymphocytes (CBC) 0.8 K/uL (0.7-4.9); Hematocrit 50.1 % (39.6-49.0); Hemoglobin 16.4 g/dL (13.6-17.9); MCH 29.3 pg (27.0-35.0); MCHC 32.8 g/dL (32.0-36.0); MCV 89.3 fL (80-100); MPV 8.6 fL (7.6-11.3); Nucleated RBC Absolute Count 0.0 (0-0); Nucleated Red Blood Cells % 0.1 % (0-0); RBC Red Blood Cell Count 5.61 M/uL (4.33-5.43); White Blood Count 8.00 thou/uL (4.3-10.9)
[2025-04-11 16:25] LABS: PT Prothrombin Time 13.1 SECONDS (10-13.0); Protime INR 1.16
--- NOTE | 2025-04-11 16:28 | RAD REPORT ---
EXAMINATION: ONE VIEW CHEST XR CLINICAL INDICATION: chf, sbo TECHNIQUE: Frontal chest projection is submitted. Examination is limited by patient positioning and t echnique. COMPARISON: 01/27/2025 FINDINGS: Bilateral pulmonary opacities are present, greater on the left, likely representing pulmonary edema o r pneumonia. The heart is moderately enlarged in size. No displaced fractures identified.
[2025-04-11 16:45] LABS: ALT/SGPT 18.0 U/L (16-61); Albumin 3.5 g/dL (3.4-5.0); Albumin/Globulin Ratio 0.8 (1.1-1.8); Alkaline Phosphatase 87.0 U/L (45-117); Anion Gap 10.5 mEq/L (5.0-15.0); BUN Blood Urea Nitrogen 24.0 mg/dL (7-18); Globulin 4.2 g/dL (2.3-3.5); Glucose Level 107.0 mg/dL (74-106); Lipase 26.0 U/L (13-75); NT PRO-BNP 13319.0 pg/mL (<450); Troponin High Sensitivity 24.6 pg/mL (<58.9)
[2025-04-11 16:48] LABS: AST/SGOT 23.0 U/L (15-37); Potassium 4.5 mEq/L (3.5-5.1)
--- NOTE | 2025-04-11 16:52 | EDPHYS ---
Physician Documentation [facility] Name: Ag Goss Age: 79 yrs Sex: Male : 1945 Arrival Date: 04/11/2025 Time: 14:20 Bed 14 Private MD: ED Physician Ivan Gonzales HPI: 04/11 15:47 This 79 yrs old Male presents to ER via Ambulatory with complaints of Abnormal sb4 Lab Results - CT Scan. 15:47 Patient is expected been experiencing nausea, vomiting, and abdominal distention over sb4 the past week. He went to see Dr. Edge who ordered an outpatient CT scan. Radiologist called him today stating that he has a moderate small bowel obstruction. Dr. Edge instructed him to come to the ED. Is still passing gas but has been unable to have a bowel movement. Denies any pain in his belly. Historical: - Allergies: 14:33 No known drug allergies; jb4 - Home Meds: 14:33 metoprolol [Active]; jb4 - PMHx: 14:33 CHF (Unknown); Hypertensive disorder; Myocardial infarction; stomach cancer; jb4 - PSHx: 14:33 stomach tumor removed; jb4 - Immunization history:: Adult Immunizations up to date. - Infectious Disease History:: Denies. - Social history:: Smoking status: Patient denies any tobacco usage or history of. ROS: 15:47 Constitutional: Negative for fever, chills, and weight loss, sb4 15:47 Abdomen/GI: Positive for nausea and vomiting, abdominal distension, 15:47 All other systems are negative, Exam: 15:47 Head/Face: Normocephalic, atraumatic. Eyes: Extra-ocular motions intact. Periorbital sb4 areas with no swelling, redness, or edema. ENT: Mucous membranes moist. Cardiovascular: Regular rate and rhythm with a normal S1 and S2. Respiratory: No increased work of breathing, no retractions or nasal flaring. Skin: Warm, dry with normal turgor. Normal color with no rashes, no lesions, and no evidence of cellulitis. 15:47 Constitutional: The patient appears in no acute distress, alert, awake, 15:47 Abdomen/GI: Inspection: distension, that is moderate, scar(s), are noted in the Midline incision, Bowel sounds: diminished, in the right lower quadrant and left lower quadrant, Palpation: nontender, 16:33 : a mota is noted, sb4 Vital Signs: 14:29 BP 153 / 80; Pulse 82; Resp 15; Temp 97.8(TE); Pulse Ox 93% on R/A; jb4 17:00 BP 197 / 84; Pulse 93; Resp 18; Pulse Ox 96% on R/A; db 19:00 BP 176 / 85; Pulse 94; Resp 16; Pulse Ox 95% on R/A; ss12 MDM: 14:26 Medical Screening Exam initiated sb4 14:39 External Records Reviewed: Outpatient radiology: CT of abdomen and pelvis without sb4 contrast done earlier today showed "GASTROINTESTINAL TRACT: Multiple significant dilated small bowel loops are seen in the abdomen compatible with moderately severe mechanical small bowel obstruction. Stomach and proximal small intestine fills with contrast proximally with distal fluid and distention noted.Several ventral hernia present containing fat as well as portions of small bowel. It is possible that focal hernia seen (image 54/111) contains small bowel and fat may be contributing to the obstruction.". 15:48 Data reviewed: vital signs, nurses notes, lab test result(s), and as a result, I will sb4 admit patient. Consideration of Admission/Observation Patient was admitted/placed on observation. Management of patient was discussed with the following: Clinical Research Spec: Dr. Edge, once patient admitted to hospitalist, n.p.o., NG tube, cardiac clearance. Historians other than the Patient: Daughter/Son: Son. Counseling: I had a detailed discussion with the patient and/or guardian regarding the historical points, exam findings, and any diagnostic results supporting the discharge/admit diagnosis, the presence of at least one elevated blood pressure reading (>120/80) during this emergency department visit, lab results, radiology results, the need for further work-up and treatment in the hospital. 15:50 Differential diagnosis: SBO, constipation, incarcerated hernia, ascites. Care sb4 significantly affected by the following chronic conditions: Hypertension, Congestive Heart Failure, Obesity. 16:56 Management of patient was discussed with the following: Hospitalist: HALEY Anderson - agrees sb4 to admit. Admission orders: after a detailed discussion of the patient's condition and case, the admit orders are written by me. 16:59 Independent interpretation of the following test(s) in the Emergency Department X-Ray: sb4 My interpretation is My interpretation of the KUB post NG tube is NG tube terminates in the distal stomach, satisfactory position. 04/11 14:37 Order name: CBC with Diff; Complete Time: 16:25 sb4 04/11 14:37 Order name: CMP; Complete Time: 16:50 sb4 04/11 14:37 Order name: Lipase; Complete Time: 16:50 sb4 04/11 15:43 Order name: BNP; Complete Time: 16:48 la1 04/11 15:43 Order name: Troponin HS; Complete Time: 16:48 la1 04/11 15:43 Order name: PT-INR; Complete Time: 16:25 la1 04/11 17:43 Order name: CBC with Automated Diff EDMS 04/11 17:43 Order name: CBC with Automated Diff EDMS 04/11 17:43 Order name: CBC with Automated Diff EDMS 04/11 17:43 Order name: CBC with Automated Diff EDMS 04/11 17:43 Order name: CBC with Automated Diff EDMS 04/11 17:43 Order name: CBC with Automated Diff EDMS 04/11 17:43 Order name: CBC with Automated Diff EDMS 04/11 17:43 Order name: CBC with Automated Diff EDMS 04/11 17:43 Order name: Comprehensive Metabolic Panel EDMS 04/11 17:43 Order name: Comprehensive Metabolic Panel EDMS 04/11 17:43 Order name: Comprehensive Metabolic Panel EDMS 04/11 17:43 Order name: Comprehensive Metabolic Panel EDMS 04/11 17:43 Order name: Comprehensive Metabolic Panel EDMS 04/11 17:43 Order name: Comprehensive Metabolic Panel EDMS 04/11 17:43 Order name: Comprehensive Metabolic Panel EDMS 04/11 17:43 Order name: Comprehensive Metabolic Panel EDMS 04/11 17:43 Order name: Protime (+INR) EDMS 04/11 17:43 Order name: Protime (+INR) EDMS 04/11 17:43 Order name: Protime (+INR) EDMS 04/11 17:43 Order name: Protime (+INR) EDMS 04/11 17:43 Order name: Troponin High Sensitivity EDMS 04/11 17:43 Order name: Troponin High Sensitivity EDMS 04/11 17:43 Order name: Troponin High Sensitivity EDMS 04/11 15:43 Order name: Chest Single View XRAY; Complete Time: 16:30 la1 04/11 16:54 Order name: Abdomen 1 View (KUB) XRAY; Complete Time: 17:06 sb4 04/11 17:43 Order name: Abdomen 1 View (KUB) EDNM 04/11 17:43 Order name: Abdomen 1 View (KUB) EDNM 04/11 17:43 Order name: Abdomen 1 View (KUB) EDNM 04/11 14:37 Order name: IV Saline Lock; Complete Time: 16:20 sb4 04/11 14:37 Order name: Labs collected and sent; Complete Time: 16:20 sb4 04/11 14:41 Order name: NPO; Complete Time: 17:13 sb4 04/11 15:43 Order name: EKG - Nurse/Tech; Complete Time: 17:09 la1 04/11 15:44 Order name: NG Tube; Complete Time: 17:02 sb4 EC:36 Rate is 103 beats/min. Rhythm is irregularly irregular, A fib. QRS interval is normal sb4 at 92 msec. QT interval is normal at 368 msec. Clinical impression: Atrial Fibrillation. Interpreted by me. Reviewed by me. Administered Medications: No medications were administered Disposition Summary: 04/11/25 16:52 Hospitalization Ordered Notes: Hospitalization Status: Inpatient Admission sb4 Provider: Liban Alejo sb4 [facility] sb4 Condition: Fair sb4 Problem: new sb4 Symptoms: are unchanged sb4 Bed/Room Type: Standard sb4 Room Assignment: 403(04/11/25 18:18) eb Diagnosis - Small bowel obstruction sb4 - Atrial fibrillation - new onset sb4 - Systolic (congestive) heart failure sb4 Forms: - Medication Reconciliation Form sb4 - SBAR form sb4 - Leadership Thank You Letter sb4 Addendum: 04/17/2025 07:35 Co-signature as Attending Physician, Ivan Gonzales MD I agree with the assessment and c proter plan of care. Signatures: Dispatcher [employer] Ivan Villalpando MD MD cha Attema, Lee, OPERATIONS WELDER-C OPERATIONS WELDER-Cla1 Driss Randall, RONEY RN jb4 Arabella George Sophia, PA-C PA-C sb4 Corrections: (The following items were deleted from the chart) 04/11 17:45 17:43 Abdomen 1 View (KUB) ordered. EDMS EDMS 18:18 16:52 sb4 eb
--- NOTE | 2025-04-11 16:52 | ER ---
Nurse's Notes [facility] Name: Ag Goss Age: 79 yrs Sex: Male : 1945 Arrival Date: 04/11/2025 Time: 14:20 Bed 14 Private MD: Diagnosis: Small bowel obstruction;Atrial fibrillation - new onset;Systolic (congestive) heart failure Presentation: 04/11 14:29 Chief complaint: Patient states: I had a CT done and I was told I needed to come back jb4 to the hospital. They did not tell me why. Coronavirus screen: At this time, the client does not indicate any symptoms associated with coronavirus-19. Ebola Screen: No symptoms or risks identified at this time. Initial Sepsis Screen: Does the patient meet any 2 criteria? No. Patient's initial sepsis screen is negative. Does the patient have a suspected source of infection? No. Patient's initial sepsis screen is negative. Risk Assessment: Do you want to hurt yourself or someone else? Patient reports no desire to harm self or others. Onset of symptoms was April 11, 2025. Transition of care: patient was not received from another setting of care. 14:29 Method Of Arrival: Ambulatory jb4 14:29 Acuity: JANAE 3 jb4 14:42 Note It Risk And Assurance Manager Pamela [id number] used. jb4 Historical: - Allergies: 14:33 No known drug allergies; jb4 - Home Meds: 14:33 metoprolol [Active]; jb4 - PMHx: 14:33 CHF (Unknown); Hypertensive disorder; Myocardial infarction; stomach cancer; jb4 - PSHx: 14:33 stomach tumor removed; jb4 - Immunization history:: Adult Immunizations up to date. - Infectious Disease History:: Denies. - Social history:: Smoking status: Patient denies any tobacco usage or history of. Screenin:11 [facility] ED Fall Risk Assessment (Adult) History of falling in the last 3 months, db including since admission No falls in past 3 months (0 pts) Confusion or Disorientation No (0 pts) Intoxicated or Sedated No (0 pts) Impaired Gait Yes (1 pt) Mobility Assist Device Used Yes (1 pt) Altered Elimination Yes (1 pt) Score/Fall Risk Level 3 or more points = High Risk Oriented to surroundings, Maintained a safe environment. Abuse screen: Denies threats or abuse. Denies injuries from another. Nutritional screening: No deficits noted. Tuberculosis screening: No symptoms or risk factors identified. Assessment: 15:30 Reassessment: Patient appears in no apparent distress at this time. Patient and/or db family updated on plan of care and expected duration. Pain level reassessed. Patient is alert, oriented x 3, equal unlabored respirations, skin warm/dry/pink. 16:30 Reassessment: Patient appears in no apparent distress at this time. Patient and/or db family updated on plan of care and expected duration. Pain level reassessed. Patient is alert, oriented x 3, equal unlabored respirations, skin warm/dry/pink. General: Appears in no apparent distress. comfortable, Behavior is calm, cooperative. Pain: Denies pain. Neuro: Level of Consciousness is awake, alert, obeys commands, Oriented to person, place, time, situation. Respiratory: Airway is patent Respiratory effort is even, unlabored, Respiratory pattern is regular, symmetrical. 17:49 Reassessment: Patient appears in no apparent distress at this time. Patient and/or db family updated on plan of care and expected duration. Pain level reassessed. Patient is alert, oriented x 3, equal unlabored respirations, skin warm/dry/pink. 19:00 Reassessment: Patient appears in no apparent distress at this time. Patient and/or ss12 family updated on plan of care and expected duration. Pain level reassessed. Patient is alert, oriented x 3, equal unlabored respirations, skin warm/dry/pink. Vital Signs: 14:29 BP 153 / 80; Pulse 82; Resp 15; Temp 97.8(TE); Pulse Ox 93% on R/A; jb4 17:00 BP 197 / 84; Pulse 93; Resp 18; Pulse Ox 96% on R/A; db 19:00 BP 176 / 85; Pulse 94; Resp 16; Pulse Ox 95% on R/A; ss12 Vitals: 17:00 Cardiac Rhythm Assessment Irregular Atrial fibrillation. db ED Course: 14:23 Patient arrived in ED. im 14:26 Tamica Grady PA-C is PHCP. sb4 14:26 Ivan Gonzales MD is Attending Physician. sb4 14:33 Triage completed. jb4 14:33 Arm band placed on right wrist. jb4 16:17 Chest Single View XRAY In Process Unspecified. EDMS 16:20 PT-INR Sent. em1 16:20 Troponin HS Sent. em1 16:20 CBC with Diff Sent. em1 16:20 CMP Sent. em1 16:20 Lipase Sent. em1 16:20 BNP Sent. em1 16:20 Initial lab(s) drawn, by me, sent to lab. Inserted saline lock: 22 gauge in right em1 antecubital area, using aseptic technique. Blood collected. Flushed with 10 mL NS. 16:[address] UPON ARRIVAL. db 16:30 EKG done. db 16:45 NGT: inserted 14 Fr. via left nare. verified placement of air over stomach, verified db return of gastric contents, Placement verified by X-ray, to intermittent suction. Returned bile. Patient tolerated well. 16:51 Liban Alejo MD is Hospitalizing Provider. sb4 17:00 Abdomen 1 View (KUB) XRAY In Process Unspecified. EDMS 17:02 Ro Gaffney, RN is Primary Nurse. db 17:11 Patient has correct armband on for positive identification. Side rails up X 1. Client db placed on continuous cardiac and pulse oximetry monitoring. NIBP monitoring applied. panel monitor on. Pulse ox on. NIBP on. Warm blanket given. Pillow given. 19:15 Provided Education on: plan of care. ss12 19:34 No provider procedures requiring assistance completed. ss12 19:36 Patient admitted, IV remains in place. ss12 Administered Medications: No medications were administered Medication: 17:11 VIS not applicable for this client. db Output: 17:48 Gastric: 750ml (NGT); Total: 750ml. db Outcome: 16:52 Decision to Hospitalize by Provider. sb4 19:35 Admitted to Tele accompanied by tech, family with patient, via stretcher, room 403, ss12 19:35 Condition: stable 19:36 Patient left the ED. ss12 Signatures: Dispatcher [employer] EDRm Amaral em1 Driss Randall, RN RN jb4 Ro Gaffney, RN RN Tamica Salinas, PA-C PAArchanaC sb4 Silvia Bucio Shamaila RN RN ss12
--- NOTE | 2025-04-11 17:05 | RAD REPORT ---
EXAM: XR of the abdomen HISTORY: Abdominal pain post NGT COMPARISON: None FINDINGS: Enteric tube tip and side-port are within the stomach.
--- NOTE | 2025-04-11 17:51 | P.HP ---
Certification for Inpatient Patient admitted to: Inpatient With expected LOS: >2 Midnights Patient will require the following post-hospital care: None Practitioner: I am a practitioner with admitting privileges, knowledge of patient current condition, hospital course, and medical plan of care. Services: Services provided to patient in accordance with Admission requirements found in Title 42 Section 412.3 of the Code of Federal Regulations Patient History Date of Service: 04/11/25 Reason for admission: SBO, new A-fib History of Present Illness: Patient presented to the hospital after being referred here by his general surgeon. A few months ago he was transferred to [facility] for decompensated cirrhosis, CHF exacerbation, spent over a week in the hospital there, was discharged with a Boateng catheter in place and instructed follow-up with GI, general surgery, urology. Patient and family are very poor historians, they did follow-up with GI around 2 days ago and were sent to the general surgeon Dr. Edge for evaluation of the hernias, Dr. Edge noted that his abdomen was distended and sent him for a CT scan today outpatient which showed moderately severe mechanical small bowel obstruction as detailed. Mild free fluid in the abdomen and pelvis. Patient was then referred to the hospital for evaluation and admission. Patient was evaluated here in the emergency department his labs were significant for a sodium of 130 chloride 95 BNP of 13,319 troponin 24.6 with blood cell count 8 hemoglobin 16.4 INR 1.16 LFTs within normal limits, T. bili 1.1. NGT was inserted, patient was seen by general surgeon in the ED he will need to be admitted for further management. He was also noted that patient was in new onset atrial fibrillation. He had echocardiogram performed 03/28/2023 which showed mild tricuspid regurgitation, normal LVEF, grade 1 diastolic dysfunction. He does have edema of the lower extremities. Chest x-ray performed today showed bilateral pulmonary opacities present greater than left likely representing pulmonary edema or pneumonia, but heart is moderately enlarged, no displaced fractures. Allergies No Known Allergies Allergy (Unverified 03/27/23 13:31) Home Medications: Amlodipine [Norvasc*] 5 mg PO DAILY 03/27/23 Metoprolol Succinate [Toprol Xl*] 50 mg PO BID 03/27/23 Furosemide [Lasix] 40 mg PO DAILY 30 Days #30 tab 03/29/23 - Past Medical/Surgical History -: HTN -: [place] -: Stomach cancer. -: depression -: heart cath 01/31, [facility] [place] -: Cirrhosis -: New onset A-fib April 2025 -: tumor removal 1998 -: prostate surgery 2001 - Social History Alcohol use: No CD- Drugs: No Caffeine use: Yes Place of Residence: Home Review of Systems 10-point ROS is otherwise unremarkable Gastrointestinal: Nausea, Diarrhea, Constipation Physical Examination - Physical Exam General: Alert, In no apparent distress, Oriented x3 HEENT: Atraumatic, PERRLA, EOMI, Sclerae nonicteric Neck: Supple, 2+ carotid pulse no bruit, No LAD Respiratory: Clear to auscultation bilaterally, Normal air movement Cardiovascular: Regular rate/rhythm, Normal S1 S2, Irregular heart rate/rhythm Gastrointestinal: Hypoactive, Distended, Tenderness Musculoskeletal: No tenderness Integumentary: No rashes Neurological: Normal gait, Normal speech, Normal strength at 5/5 x4 extr, Normal affect Urinary: Boateng catheter (chronic) - Studies Laboratory Data (last 24 hrs) 04/11/25 04/11/25 04/11/25 16:09 16:09 16:09 WBC 8.00 Hgb 16.4 Hct 50.1 H Plt Count 204 PT 13.1 H INR 1.16 Sodium 130 L Potassium 4.5 BUN 24 H Creatinine 1.18 Glucose 107 H Total Bilirubin 1.1 H AST 23 ALT 18 Alkaline Phosphatase 87 Lipase 26 Assessment and Plan - Plan Assessment: SBO Cirrhosis of the liver New onset A-fib Chronic diastolic congestive heart failure History of CAD Hypertension Chronic Boateng catheter Plan: SBO Cirrhosis of the liver N.p.o. NGT to [facility] General Surgery following, KUB in the morning Multiple hernias present, possibly secondary to hernias Empiric antibiotics, gentle IV fluids given history of CHF New onset A-fib Chronic diastolic congestive heart failure History of CAD Cardiology consultation-perioperative evaluation required No reported or known history of A-fib Started on heparin drip Rate controlled at this time Echocardiogram from 2022 shows normal LVEF, diastolic dysfunction Hypertension Continue home medications when verified Chronic Boateng catheter Boateng catheter has been in place for around 2 months Will exchange Will still need outpatient follow-up with urology at discharge DVT PPX: Heparin drip Code status: Full code Discharge Plan: Home Plan to discharge in: Greater than 2 days - Advance Directives Does patient have a Living Will: No Does patient have a Durable POA for Healthcare: No - Code Status/Comfort Care Code Status Assessed: Yes (Full code) Critical Care: No Time Spent Managing Pts Care (In Minutes): 75
[2025-04-11] MEDS: D5 0.45 NS 1,000 ML IV SCH (18:00)
--- NOTE | 2025-04-12 00:03 | RAD REPORT ---
TIME OF STUDY: 04/11/2025 10:44 PM CDT REASON FOR EXAM: Picc Line COMPARISON: None. FINDINGS: AP view of the chest was obtained, chest 1 view. Lungs: The lungs are adequately inflated. Diffuse interstitial markings are noted. Patchy opacities a re noted in the lung bases. Nasogastric tube is noted. A right arm PICC is seen with its tip in the distal SVC. Pleura: No pneumothorax. Tiny bilateral pleural effusions are noted Heart and Mediastinum: Cardiac silhouette is enlarged.. The aorta is atherosclerotic. Bones: No acute bony abnormality.. IMPRESSION: 1. Right arm PICC with its tip in the distal SVC. Electronically signed by: Jatin Chavez MD 04/11/2025 11:28 PM CDT RP Due to temporary technical issues with the PACS/[employer] LS15 reporting system, reports are being abigail d by the in-house radiologist without review as a courtesy to ensure prompt reporting. The interpreting radiologist is fully responsible for the content of the report. Transcribed Date/Time: 04/12/2025 12:03 AM
[2025-04-12] MEDS: PIPER TAZO 3.375 GM in NA CHLORIDE 0.9% 100 ML IV SCH (00:31)
[2025-04-12] MEDS: FUROSEMIDE 40 MG/4 ML VIAL IV SCH (00:32)
[2025-04-12] MEDS: HEPARIN/D5W 25,000 UNIT/500 ML BAG IV SCH (01:18)
[2025-04-12 05:52] LABS: Absolute Lymphocytes (CBC) 1.0 K/uL (0.7-4.9); Hematocrit 42.4 % (39.6-49.0); Hemoglobin 13.9 g/dL (13.6-17.9); MCH 29.5 pg (27.0-35.0); MCHC 32.9 g/dL (32.0-36.0); MCV 89.8 fL (80-100); MPV 9.0 fL (7.6-11.3); Nucleated RBC Absolute Count 0.0 (0-0); Nucleated Red Blood Cells % 0.1 % (0-0); RBC Red Blood Cell Count 4.73 M/uL (4.33-5.43); White Blood Count 6.60 thou/uL (4.3-10.9)
[2025-04-12 06:17] LABS: PT Prothrombin Time 16.1 SECONDS (10-13.0); Protime INR 1.44
[2025-04-12 06:33] LABS: AST/SGOT 15 U/L (15-37); Albumin 2.6 g/dL (3.4-5.0); Albumin/Globulin Ratio 0.9 (1.1-1.8); Alkaline Phosphatase 64 U/L (45-117); Anion Gap 10.6 mEq/L (5.0-15.0); BUN Blood Urea Nitrogen 23 mg/dL (7-18); Globulin 3.0 g/dL (2.3-3.5); Glucose Level 183 mg/dL (74-106); Potassium 3.6 mEq/L (3.5-5.1); Troponin High Sensitivity 20.0 pg/mL (<58.9)
[2025-04-12 06:34] LABS: ALT/SGPT < 14 U/L (16-61)
[2025-04-12] MEDS: D5 0.45 NS 1,000 ML IV SCH (06:43)
[2025-04-12] MEDS: Mupirocin NASAL 2 APPL/1 GM TUBE NAS SCH (08:52)
--- NOTE | 2025-04-12 09:01 | RAD REPORT ---
EXAM: XR of the abdomen HISTORY: Abdominal pain sbo COMPARISON: 04/11/2025 CT study FINDINGS: XR of the abdomen shows several mildly dilated small bowel loops in the upper abdomen.This is compatible with partial mechanical obstruction. Enteric tube is not visualized on the present radiograph. Examination is limited by patient positioning and portable technique.
--- NOTE | 2025-04-12 12:08 | CON ---
Reason For Service: Small bowel obstruction. History Of Present Illness: This is the case of an 79-year-old patient, came with a small bowel obst ruction, although the etiology is somehow equivocal. He stated that he had a gastric cancer about 25 years ago and he had a gastrojejunostomy through a midline incision. He has been doing okay on and off, but he started to have difficulty eating. He had nausea, sometimes vomiting. He has been like that for about a week. He came to my office few hours ago and then I suspected patient may have an o bstruction. I asked him to get a CAT scan and then sent him to the ER. Although his abdomen does no t have peritonitis, he still has abdominal distention with bowel obstruction. I noticed that about 2 months ago, he was here and he was transferred, so I am trying to find information and the reason fo r that. They stated that could be just related to hepatic encephalopathy or cardiac disease, althoug h the daughter who is today at bedside, I have talked to the patient and son before in Cypriot and En harsh, the daughter stated that the reason he was here in January was almost for the same and they had to transfer him to [place] and then they put an NG tube and then things got better. They did not do an y surgery. She also stated that the bumps and hernias have been there for some time. Today, he feel s better. He has been having NG tube for the last 12 hours and now we are going to dilemma of is the bowel obstruction somewhere else and then causing the hernias to be more pronounced or the etiology could be the hernia. It is hard to notice at this moment. Since he right now has no peritonitis, we have time also to explain to the family for them to understand the pros and cons of any surgical int ervention on him, which could be a major surgery. The medical doctors and sample grinder also has been called to a help us to predict his outcome a little bit better from the medical standpoint if surger y is done. He does not give much of information. He is a nice elicia talking, but he does not have muc h recollection of his surgery, so I am using his daughter and his son with obviously information comi ng this way. Review of Systems: Shows nausea, vomiting. He is still having on and off bowel movement, abdominal distention. Allergies: NONE. Social History: He does not smoke. He does not drink alcohol. Medications: Include Norvasc, Toprol, and Lasix. Past Medical History: Include hypertension; heart attack; stomach cancer with surgery; heart cathete rization 2 years ago in [place], [place]; cirrhosis of the liver; AFib, new onset just few weeks ago; and also prostate disease. Past Surgical History: Include a stomach cancer that today after going back and forth where it sound s like a gastrojejunostomy. He also had prostate surgery, multiple midline incisions, multiple "revi ews" as the patient describes. Physical Examination: Vital Signs: Shows temperature is 97.8, pulse 92, blood pressure 147/70. General: The patient is awake, alert, communicative, not in distress. Speaks Cypriot fluently. The patient's family and daughter are at bedside. HEENT: Pupils are equal and reactive. Anicteric. Neck: Supple. Chest: Clear. Abdomen: Softly distended. The patient has reducible ventral hernias incisional from the few midlin e incisions. No guarding or rebound in those areas. Bowel sounds are positive. Rectal: Deferred. Extremities: Good capillary refill. Laboratory Data: Blood work shows WBC count of 6.6 with hemoglobin of 13.9, platelets of 185. Potas sium 3.6, glucose 183, lipase 26. The CAT scan of the abdomen and pelvis shows interpreted by Dr. James vi is obviously lack of intravenous contrast, limited sensitivity for solid visceral organ structures , but there are multiple dilated small bowel loops compatible with moderate to severe mechanical danita l obstruction. Stomach and proximal small intestines filled with contrast proximally with distal flu id and distention noted. Several ventral hernias present containing fat related of some portion of t he small bowel. It is not sure if this is causing it or just an effect from the bowel obstruction. Assessment: This is an 79-year-old patient with bowel obstruction. He has been dealing with this fo r about a week already with nausea. He had this before, not too long ago. It resolved on his own. He hopes it will resolve on his own at this time too, but I explained to him options we might have, a lthough not wanted, but we explained to him, which include laparotomy with possible resection. We ma y not repair all the hernias. If we find a hernia causing obstruction, we might have to address that issue. This time, major abdominal reconstruction may be with his comorbidities a delicate situation if not life-threatening. At the same time, we have no clear absolute certainty that the hernia is t he kink there, may be somewhere else. I may have to run his bowel and check the previous anastomosis , which may be lengthy because of the previous surgeries and once again, this is not definitive becau se this may create more scar tissue to have hernias in the future. Obviously, he will have a normal life. Other than this, he is doing okay, so he is trying to do conservative treatment. In the meant ulysses, he has no peritonitis, but if his bowel obstruction does not improve, may have to have the surge ry done during this admission. So, we asked the medical service and the cardiac service to give us a n evaluation of his medical status. We also would like to have a small bowel series that will someho w help us to determine the location of the obstruction. We have him on NG tube. He comes with a Fol ey catheter. He cannot explain why, somebody put it. He is supposed to see a urologist. So, we are going to just keep it. He came directly from home with a Boateng catheter. We are going to also get a PICC line and probably start parenteral nutrition because he says he has not eaten properly in the last week and half and may be behind in nutrition. Electrolytes will be watched right now and chandra lawson. HUNTER/DARWIN Voice ID: [id number] Report ID: [id number]
--- NOTE | 2025-04-12 16:09 | P.PN ---
Date of Service: 04/12/25 Subjective: No acute events overnight Boateng catheter to be exchanged today Denies any dyspnea/chest pain Not passing gas, no bowel movement Accidentally removed NGT today ROS: 10 point ROS as noted above, otherwise negative Physical exam GEN: Alert, oriented, NAD HEENT: Normal conjunctiva, sclera anicteric CV: A-fib, rate controlled, 2+ pitting edema lower extremities bilaterally Pulm: Nonlabored respirations on room air ABD: Soft, distended, hypoactive bowel sounds MSK: No joint tenderness Integumentary: No rashes Neuro: Normal speech, normal affect Vitals reviewed Assessment: SBO Cirrhosis of the liver New onset A-fib Chronic diastolic congestive heart failure History of CAD Hypertension Chronic Boateng catheter Plan: SBO Cirrhosis of the liver N.p.o. NGT excellently removed by patient Okay to leave out for now per general surgery General Surgery following Small bowel series in the morning Multiple hernias present, possibly secondary to hernias Empiric antibiotics, gentle IV fluids given history of CHF Atrial fibrillation on chronic anticoagulation Acute on chronic systolic congestive heart failure History of CAD Cardiology consultation-perioperative evaluation required External chart review, patient has history of A-fib Also had cardiac evaluation with echocardiogram during hospitalization in January which showed EF of around 35% Imaging from that hospitalization also showed a coronary stent in place Started on heparin drip Rate controlled at this time Hypertension Continue home medications when verified Chronic Boateng catheter Boateng catheter has been in place for around 2 months Will exchange Will still need outpatient follow-up with urology at discharge DVT PPX: Heparin drip Code status: Full code Discharge Plan: Home Plan to discharge in: Greater than 2 days Time Spent Managing Pts Care (In Minutes): 35
[2025-04-12] MEDS: AA 4.25 %/D5W/ELECTROLYTES 2,000 ML IV ONE (18:22)
[2025-04-12] MEDS: ONDANSETRON 4 MG/2 ML VIAL IV PRN (18:22)
--- NOTE | 2025-04-12 19:14 | CON ---
Date of Consultation: 04/12/2025 Reason For Consultation: Preop assessment for possible surgery for bowel obstruction. History Of Present Illness: An 79-year-old male with past medical history of hypertension, coronary artery disease, atrial fibrillation, presented with abdominal discomfort, distention, nausea, and vom iting. Denies having any cardiac complaints. No chest pain, no shortness of breath, and no recent c ardiac complaints. The patient denies having any chest pain and he is a poor historian as well. Past Medical History: As outlined above in the HPI. Medications: Refer reconciliation sheet for detailed list. Allergies: NO KNOWN DRUG ALLERGIES. Family History: No premature coronary artery disease or cancer. Social History: Does not smoke or drink. Does not use any drugs. Review of Systems: All systems reviewed and they were negative except as mentioned in the HPI. Physical Examination: Vital Signs: Reviewed. Head and Neck: Pupils are equal, reactive to light. Intact eye movements. No JVD. No cervical lym phadenopathy. Neck is supple. Thyroid is not enlarged. Lungs: Clear to auscultation bilaterally. No rhonchi, wheezing, or crackles. No accessory muscle u se. Heart: Irregular. No extra sounds. Abdomen: Soft, nontender. Bowel sounds positive. No organomegaly. No masses or hernia. No rigidi ty or rebound. Extremities: No edema, clubbing, or cyanosis. Intact pulses. Skin: No rash. Neurologic: Alert, awake, and oriented x3. No acute focal deficits appreciated. Investigations: BUN is 23, creatinine 1.05. NT-proBNP is 13,000. Hemoglobin is 13.9. Assessment/recommendations: 1. Cardiac preop risk assessment. Very difficult to assess his risk. However, he is having small deepti wel obstruction and if the surgery is indicated, this is rather urgent surgery. I will proceed with it. He does not have any current cardiac symptoms plus cardiac exam appears to be unremarkable. If need be to proceed with surgery, this should be done without any delay for cardiac workup. If this i s a chronic issue and stable, then I will recommend cardiac workup on him early next week with stress test and an echo. 2. History of atrial fibrillation. He is stable. Continue his home medications. If heart rate goes out of control, then recommend IV amiodarone and he definitely will need stroke prevention, which ca n be done once his intraabdominal issue is taken care of. At this point, Cardiology will be around f or any further issues in the postsurgical course. Thank you for the consult. MATTIE Voice ID: [id number] Report ID: [id number]
[2025-04-13] MEDS: PROMETHAZINE INJ 25 MG/ML AMP IM ONE (03:14)
[2025-04-13 04:58] LABS: Absolute Lymphocytes (CBC) 0.7 K/uL (0.7-4.9); Hematocrit 44.2 % (39.6-49.0); Hemoglobin 14.7 g/dL (13.6-17.9); MCH 29.9 pg (27.0-35.0); MCHC 33.4 g/dL (32.0-36.0); MCV 89.6 fL (80-100); MPV 8.6 fL (7.6-11.3); Nucleated RBC Absolute Count 0.0 (0-0); Nucleated Red Blood Cells % 0.2 % (0-0); RBC Red Blood Cell Count 4.93 M/uL (4.33-5.43); White Blood Count 6.70 thou/uL (4.3-10.9)
[2025-04-13 05:14] LABS: PT Prothrombin Time 14.0 SECONDS (10-13.0); PTT, Activated Partial Thromb 46.1 SECONDS (27.2-37.4); Protime INR 1.25
[2025-04-13 05:35] LABS: AST/SGOT 17 U/L (15-37); Albumin 2.7 g/dL (3.4-5.0); Albumin/Globulin Ratio 0.8 (1.1-1.8); Alkaline Phosphatase 71 U/L (45-117); Anion Gap 7.4 mEq/L (5.0-15.0); BUN Blood Urea Nitrogen 24 mg/dL (7-18); Globulin 3.3 g/dL (2.3-3.5); Glucose Level 139 mg/dL (74-106); Magnesium 1.8 mg/dL (1.6-2.4); Potassium 3.4 mEq/L (3.5-5.1)
[2025-04-13 05:41] LABS: ALT/SGPT < 14 U/L (16-61)
[2025-04-13] MEDS: ONDANSETRON 4 MG/2 ML VIAL IV PRN (06:12)
--- NOTE | 2025-04-13 13:27 | RAD REPORT ---
EXAMINATION: Small bowel series CLINICAL INDICATION: Male, 79 years old. possible SBO COMPARISON: No prior exam. FINDINGS: Language Teacher film shows persistent small bowel dilation in the central abdomen and left flank.. Bowel calibe r measures up to 4.4 cm. No evidence of free air. No suspicious calcifications. Gastric size and mucosal fold pattern are normal. No mucosal fold thickening of small bowel is noted. Orally ingested water-soluble contrast shows pers istent in the small bowel loops in the left flank appear progressive dilution of the contrast on serial images, with some progression of markedly diluted contrast through the right lower abdomen. No opacification of the large bowel by 4-hour time point suggesting delayed transit. No intrinsic or extrinsic mass identifiable. No fluoroscopy was performed. Total images acquired:11 IMPRESSION: Persistent small bowel obstruction, with persistent small bowel dilation, and delayed transit of danita l contrast to the right lower quadrant. By the 4 hour time point, no opacification of large bowel was yet perceived, however evaluation was markedly limited given marked dilution of the contrast.
--- NOTE | 2025-04-13 14:16 | P.PN ---
Date of Service: 04/13/25 Subjective: Vomited multiple times overnight NGT had been accidentally removed by patient yesterday Patient refused NG tube insertion overnight Small bowel series performed this morning Patient nauseous since procedure but no further vomiting since this morning ROS: 10 point ROS as noted above, otherwise negative Physical exam GEN: Alert, oriented, NAD HEENT: Normal conjunctiva, sclera anicteric CV: A-fib, rate controlled, 1+ pitting edema lower extremities bilaterally Pulm: Nonlabored respirations on room air ABD: Soft, distended, hypoactive bowel sounds MSK: No joint tenderness Integumentary: No rashes Neuro: Normal speech, normal affect Vitals reviewed Assessment: SBO Cirrhosis of the liver New onset A-fib Chronic diastolic congestive heart failure History of CAD Hypertension Chronic Boateng catheter Plan: SBO Cirrhosis of the liver N.p.o. NGT accidentally removed by patient 04/12 Small bowel series performed 83 AM shows persistent small bowel obstruction NG tube will need to be replaced Plan for surgical intervention tomorrow morning Will need ICU level of care after surgery, discussed with house fellowsupervisor evaporator Surgery following Multiple hernias present, possibly secondary to hernias On PPN Atrial fibrillation on chronic anticoagulation Acute on chronic systolic congestive heart failure History of CAD Cardiology consulted, no further intervention before surgery External chart review, patient has history of A-fib Also had cardiac evaluation with echocardiogram during hospitalization in January which showed EF of around 35% Imaging from that hospitalization also showed a coronary stent in place Started on heparin drip Rate controlled at this time Hypertension Continue home medications when verified Chronic Boateng catheter Boateng catheter has been in place for around 2 months Needs to be exchanged but patient stating he will not allow us to put back if removed, will need surgery as well Will still need outpatient follow-up with urology at discharge DVT PPX: Heparin drip Code status: Full code Discharge Plan: Home Plan to discharge in: Greater than 2 days Time Spent Managing Pts Care (In Minutes): 35
[2025-04-13] MEDS: AA 4.25 %/D5W/ELECTROLYTES 2,000 ML IV ONE (16:39)
--- NOTE | 2025-04-13 16:58 | RAD REPORT ---
EXAMINATION: ONE VIEW CHEST XR CLINICAL INDICATION: Male, 79 years old.,Ng tube placement TECHNIQUE: Frontal chest projection is submitted. Examination is limited by patient positioning and t echnique. COMPARISON: 04/12/2025 and 04/11/2025 FINDINGS: Enteric tube in place, terminating in the proximal stomach. The right arm PICC in place with catheter tip projecting at the level of the right atrium.. The lungs are well inflated and clear. No pneumothorax layering bilateral small to moderate pleural effusions with underlying airspace opacitie s, stable on the left, and progressive on the right. The heart is mildly enlarged. Mediastinal contours are unremarkable. IMPRESSION: Satisfactory positioning of NG tube and right arm PICC. Other findings as above.
[2025-04-14 04:15] LABS: Absolute Lymphocytes (CBC) 0.8 K/uL (0.7-4.9); Hematocrit 45.9 % (39.6-49.0); Hemoglobin 15.0 g/dL (13.6-17.9); MCH 29.6 pg (27.0-35.0); MCHC 32.6 g/dL (32.0-36.0); MCV 90.9 fL (80-100); MPV 8.7 fL (7.6-11.3); Nucleated RBC Absolute Count 0.0 (0-0); Nucleated Red Blood Cells % 0.1 % (0-0); RBC Red Blood Cell Count 5.05 M/uL (4.33-5.43); White Blood Count 8.50 thou/uL (4.3-10.9)
[2025-04-14 04:28] LABS: PT Prothrombin Time 14.8 SECONDS (10-13.0); Protime INR 1.32
[2025-04-14 04:41] LABS: ALT/SGPT < 14 U/L (16-61); AST/SGOT 13 U/L (15-37); Albumin 2.7 g/dL (3.4-5.0); Albumin/Globulin Ratio 0.8 (1.1-1.8); Alkaline Phosphatase 63 U/L (45-117); Anion Gap 6.3 mEq/L (5.0-15.0); BUN Blood Urea Nitrogen 28 mg/dL (7-18); Globulin 3.6 g/dL (2.3-3.5); Glucose Level 158 mg/dL (74-106); Magnesium 1.8 mg/dL (1.6-2.4); Potassium 3.3 mEq/L (3.5-5.1)
[2025-04-14] MEDS: MAGNESIUM SULFATE 1 gm IVPB 1 GM/100 ML BAG IV ONE (06:36)
[2025-04-14] MEDS: KCL 20 MEQ/100 mL IVPB 20 MEQ/100 ML BAG IV SCH (08:15)
[2025-04-14] MEDS: FUROSEMIDE 40 MG/4 ML VIAL IV SCH (08:16)
--- NOTE | 2025-04-14 09:49 | P.PN ---
Date of Service: 04/14/25 Subjective: NG tube was able to be reinserted Had significant mount of output on placed On heparin drip for A-fib, will be paused for surgery Plan for surgical intervention on his bowel obstruction today, will be moved to ICU after this other precaution ROS: 10 point ROS as noted above, otherwise negative Physical exam GEN: Alert, oriented, NAD HEENT: Normal conjunctiva, sclera anicteric CV: A-fib, rate controlled, 1+ pitting edema lower extremities bilaterally Pulm: Nonlabored respirations on room air ABD: Soft, distended, hypoactive bowel sounds MSK: No joint tenderness Integumentary: No rashes Neuro: Normal speech, normal affect Vitals reviewed Assessment: SBO Cirrhosis of the liver New onset A-fib Chronic diastolic congestive heart failure History of CAD Hypertension Chronic Boateng catheter Plan: SBO Cirrhosis of the liver N.p.o. NGT accidentally removed by patient 04/12 Small bowel series performed 8/3 AM shows persistent small bowel obstruction NG tube was replaced Plan for surgical intervention today Will need ICU level of care after surgery General Surgery following Multiple hernias present, possibly secondary to hernias On PPN Atrial fibrillation on chronic anticoagulation Acute on chronic systolic congestive heart failure History of CAD Cardiology consulted, no further intervention before surgery External chart review, patient has history of A-fib Also had cardiac evaluation with echocardiogram during hospitalization in January which showed EF of around 35% Imaging from that hospitalization also showed a coronary stent in place Started on heparin drip, will be paused for surgery and resumed when okay with general surgery Rate controlled at this time Hypertension Continue home medications when verified Chronic Boateng catheter Boateng catheter has been in place for around 2 months Needs to be exchanged but patient stating he will not allow us to put back if removed Will still need outpatient follow-up with urology at discharge DVT PPX: Heparin drip Code status: Full code Discharge Plan: Home Plan to discharge in: Greater than 2 days Time Spent Managing Pts Care (In Minutes): 35
[2025-04-14] MEDS: Ringers Lactate 1,000 ML IV ONE (11:35)
[2025-04-14] MEDS: SUGAMMADEX SODIUM 200 MG/2 ML VIAL IV ONE (12:02)
[2025-04-14] MEDS: ALBUMIN HUM 5% 250 ML IV ONE (12:03)
[2025-04-14] MEDS: VASOPRESSIN 20 UNIT/ML VIAL ONE (12:03)
[2025-04-14] MEDS: SUCCINYLCHOLINE 20 MG/ML (10 ML) IV ONE (12:03)
[2025-04-14] MEDS ORDERED: ROCURONIUM 50 MG/5 ML VIAL IV ONE (12:11)
[2025-04-14] MEDS ORDERED: FENTANYL CITR 100 MCG/2 ML ONE (12:11)
[2025-04-14] MEDS ORDERED: LIDOCAINE 2% MPF 5 ML VIAL ONE (12:11)
[2025-04-14] MEDS ORDERED: ONDANSETRON 4 MG/2 ML VIAL ONE (14:19)
--- NOTE | 2025-04-14 14:20 | P.BOP ---
Preoperative diagnosis: small bowel obtruction, incisional ventral hernias, abd pain, hx of gastric Postoperative diagnosis: same plus extensive intrabdominal adhesions Primary procedure: 1. Exploratory laparotomy, 2. small bowel resection and anastomosis Secondary procedure: 3. Extensive intrabdominal adhesions Other procedure(s): 4. Open repair of incisional incarcerated ventral hernias Estimated blood loss: <50cc Specimen: small bowel, hernia sac Findings: see dictation Anesthesia: General Complications: None Drain(s): Nasogastric Transferred to: Recovery Room Condition: Good
[2025-04-14] MEDS ORDERED: HYDROMORPHONE HCL 1 MG/ML INJ IV PRN (14:30)
[2025-04-14] MEDS ORDERED: GLYCOPYRROLATE 0.2 MG/ML SYR ONE (14:30)
[2025-04-14] MEDS ORDERED: NEOSTIGMINE 1 MG/ML -10 ML VIAL ONE (14:30)
[2025-04-14] MEDS: HYDROMORPHONE HCL 1 MG/ML INJ ONE ×2 (15:05→15:20)
[2025-04-14] MEDS: METOPROLOL TARTRATE 5 MG/5 ML INJ IV STA (17:12)
[2025-04-14] MEDS ORDERED: METOPROLOL TARTRATE 5 MG/5 ML INJ IV PRN (17:33)
[2025-04-14] MEDS: AA 4.25 %/D5W/ELECTROLYTES 2,000 ML, Lipids 20% 250 ML with MULTIVITAMINS INJ 10 ML IV SCH (17:39)
[2025-04-15] MEDS: MORPHINE 2 MG/ML SYR IV PRN (00:09)
--- NOTE | 2025-04-15 02:01 | OP ---
Date of Procedure: 04/14/2025 Surgeon: Diego Edge MD Preoperative Diagnoses: Small bowel obstruction, incisional ventral hernias, abdominal pain, history of gastric cancer with gastrojejunostomy, history of prostate cancer, multiple adhesions, incisional ventral hernias. Postoperative Diagnoses: Small bowel obstruction, incisional ventral hernias, abdominal pain, histor y of gastric cancer with gastrojejunostomy, history of prostate cancer, multiple adhesions, incisiona l ventral hernias, extensive intra-abdominal adhesions. Procedures: 1. Exploratory laparotomy. 2. Small bowel resection and anastomosis. 3. Extensive intra-abdominal adhesions. 4. Open repair of multiple incisional incarcerated ventral hernias. Estimated Blood Loss: Less than 50 cc. Specimen: Small bowel hernia sac. Findings: Patient has a small bowel obstruction. There is a point of the small bowel, which is dioni ched to multiple scar tissue, also going through the ventral hernia and incisional hernia causing str ictures in that area small bowel needed to be removed. We have proximal dilated and dista l collapsed small bowel at that point. We ran the entire small bowel, which showed the same findings . Multiple intra-abdominal adhesions. Half of the time was to remove and lysis of adhesions. We al so 2 hernias. The 1 causing the bowel obstruction and another 1 near by that needs to be addressed with laparotomy. Estimated Blood Loss: Less than 50 cc. Anesthesia: General plus local. Complications: None. Indications: This is a case of an 79-year-old patient, multiple gastrointestinal and prostate surger ies, comes to us with abdominal distention and small bowel obstruction. He tried conservative treatm ent. Obviously, he understands the risk that he would take by doing laparotomy. He has done it befo re, but over the last few days, he did not improve even on bowel rest, nasogastric decompression, par enteral nutrition. So, we obtained cardiac clearance, talked to the primary doctor, talked to the jovanni ewing, and he decided just to go for the surgery, which was explained to him as exploratory laparotomy , possible resection, possible ostomy with benefits, alternatives, and risks, including, but not limi lulu to infection, bleeding, damage to adjacent structures, anesthesia complication, recurrence, IN, e clarisa . He also understands this may not relieve his symptoms. He might need more than one surgi rafael intervention. He understood and signed the consent. Description Of Procedure: The patient was brought to the operating room, placed in supine position. Anesthesia was done without complication. Abdominal area was prepped and draped in a sterile fashio n. A time-out was called. A midline incision was made on the upper ventral region. This connected to the umbilical area. The incision was carried down. We noticed the first hernia sac. We carefull y identified the hernia sac and we noticed the content to be small bowel. It does not look viable to me, looks to have some strictures. We used at point to do a formal laparotomy and opened the fascia under direct visualization. There were many adhesions in that area, but with the help of LigaSure, we proceeded to remove adhesions to release the bowel and to be able to run the bowel after this. Maxime jaquez of the time of the surgery done lysis of adhesions. Once we have the bowel released, w e noticed the area of obstruction. Even though there were multiple hernias in the abdomen, this was the 1 that really was causing stricture and narrow point with an obvious proximal dilated loop of bow el and obvious distal collapsed bowel. Still we ran the small bowel. This patient has a previous ga strojejunostomy, so we came from the area of the stomach. We did not see any masses there to the large bowel. Once again, we had the same findings. Large bowel was also inspected. I did n ot see at least any extraluminal masses. Later I could not feel any masses. At that moment, I proce eded to identify the area of concern. We the bowel to be nonviable, but a few more inches after that also looks like there was an inflammatory process with narrow point, so we included that in our specimen. We obtained proximal and distal control of the area to be removed, put a MARITZA 80 in the proximal and distal area, transected the small bowel. The mesoappendix was transected with the h elp of a LigaSure. Then, after that we apposed the antimesenteric borders of the 2 small bowel edges , no cyanosis, looks viable. We made 2 enterotomies and placed MARITZA 80 between them, fired MARITZA 80. C hecked the anastomosis. No bleeding and then closed the enterotomies with the TA 60. Excellent lume n between. We have now bowel that was previously collapsed, now getting functioned with the proximal bowel draining into it. No leakage. The mesentery was closed with 0 chromic. The anti-kink suture was placed at the end of the anastomotic site with silk. The area was inspected once again. Profus e irrigation was done of the abdomen. At that moment, I proceeded to place the bowel back into posit ion without any twist. I then proceeded to clean the fascial edges, remember that we have large brenda ias in that region. When we had the fascial edges, we proceeded to approximate that in 1 simple unit closure with #2 nylon in a running fashion. The area was irrigated. Then after that, the subcutane ous tissue closed with 3-0 chromic and the skin with leela. Sponge count and instrument count nallely ect. Patient tolerated the procedure well. The patient on his way to recovery in stable condition. The patient will be admitted to the ICU. HUNTER/DARWIN Voice ID: [id number] Report ID: [id number]
[2025-04-15] MEDS: METOPROLOL XL 100 MG TAB PO SCH (06:00)
[2025-04-15 06:05] LABS: Absolute Lymphocytes (CBC) 0.5 K/uL (0.7-4.9); Hematocrit 45.0 % (39.6-49.0); Hemoglobin 14.7 g/dL (13.6-17.9); MCH 29.7 pg (27.0-35.0); MCHC 32.7 g/dL (32.0-36.0); MCV 90.8 fL (80-100); MPV 8.6 fL (7.6-11.3); Nucleated RBC Absolute Count 0.2 (0-0); Nucleated Red Blood Cells % 1.6 % (0-0); RBC Red Blood Cell Count 4.96 M/uL (4.33-5.43); White Blood Count 9.60 thou/uL (4.3-10.9)
[2025-04-15 06:38] LABS: Albumin 2.5 g/dL (3.4-5.0); Albumin/Globulin Ratio 0.7 (1.1-1.8); Alkaline Phosphatase 44 U/L (45-117); Anion Gap 5.9 mEq/L (5.0-15.0); BUN Blood Urea Nitrogen 36 mg/dL (7-18); Globulin 3.4 g/dL (2.3-3.5); Glucose Level 180 mg/dL (74-106); Magnesium 2.1 mg/dL (1.6-2.4); Potassium 3.9 mEq/L (3.5-5.1)
[2025-04-15 06:40] LABS: ALT/SGPT < 14 U/L (16-61); AST/SGOT < 10 U/L (15-37)
[2025-04-15] MEDS: KCL 20 MEQ/100 mL IVPB 20 MEQ/100 ML BAG IV SCH (06:52)
--- NOTE | 2025-04-15 11:26 | PN ---
Date of Progress Note: 04/15/2025 Diagnosis: Status post laparotomy with bowel resection and extensive lysis of adhesions. Subjective: Patient is doing well. No complaint. NG tube intact. Minimal drainage. Boateng cathete r was placed there a long time ago. Objective: Chest: Clear. Abdomen: Soft and depressible. Intact surgical site. Extremities: No calf tenderness. Laboratory Data: Blood work reviewed. Plan: We are going to continue observation. We are going to start ice chips today. Tomorrow, we ar e going to advance the diet to clear liquid diet if clinically better. Follow up an H and H. May re sume his anticoagulation for AFib. HUNTER/DARWIN Voice ID: [id number] Report ID: [id number]
--- NOTE | 2025-04-15 11:29 | P.PN ---
Subjective Date of Service: 04/15/25 Chief Complaint: SBO, new A-fib Subjective: New changes (patient is s/p open lapratomy, stable on NG suction.) Review of Systems 10-point ROS is otherwise unremarkable Physical Examination - Vital Signs Temperature: 97.8 F Blood Pressure: 131/69 Pulse: 102 Respirations: 12 Pulse Ox (%): 95 - Physical Exam General: Alert, In no apparent distress HEENT: Atraumatic, PERRLA, EOMI Neck: Supple, JVD not distended Respiratory: Clear to auscultation bilaterally, Normal air movement Cardiovascular: Regular rate/rhythm, Normal S1 S2 Gastrointestinal: Normal bowel sounds, No tenderness Musculoskeletal: No tenderness Integumentary: No rashes Neurological: Normal speech, Normal tone, Normal affect Lymphatics: No axilla or inguinal lymphadenopathy - Studies Medications List Reviewed: Yes Assessment And Plan - Current Problems (Diagnosis) (1) Atrial fibrillation Current Visit: Yes Status: Acute Plan: Patient is currently in AF, rate controlled, he is off any medications, as he is NPO continue to monitor on tele resume lopressor 25 mg o BID once cleared from surgery for PO intake. patient will also need to be on anticoagulation once cleared from surgery team.
--- NOTE | 2025-04-15 13:02 | P.PN ---
Date of Service: 04/15/25 s/p surgery HR elevated denies abdominal pain or nausea NGT in place ROS: 10 point ROS as noted above, otherwise negative Physical exam GEN: Alert, oriented, NAD HEENT: Normal conjunctiva, sclera anicteric CV: A-fib, rate controlled, 1+ pitting edema lower extremities bilaterally Pulm: Nonlabored respirations on room air ABD: Soft, distended, hypoactive bowel sounds MSK: No joint tenderness Integumentary: No rashes Neuro: Normal speech, normal affect Vitals reviewed Assessment: SBO Cirrhosis of the liver New onset A-fib Chronic diastolic congestive heart failure History of CAD Hypertension Chronic Boateng catheter Plan: SBO Cirrhosis of the liver N.p.o., swats Small bowel series performed 8/3 AM shows persistent small bowel obstruction NG tube was replaced surgical intervention General Surgery following Multiple hernias present, possibly secondary to hernias On PPN Atrial fibrillation on chronic anticoagulation Acute on chronic systolic congestive heart failure History of CAD Cardiology consulted, no further intervention before surgery External chart review, patient has history of A-fib Also had cardiac evaluation with echocardiogram during hospitalization in January which showed EF of around 35% Imaging from that hospitalization also showed a coronary stent in place HR fluctuating Hypertension Continue home medications when verified Chronic Boateng catheter Boateng catheter has been in place for around 2 months Needs to be exchanged but patient stating he will not allow us to put back if removed Will still need outpatient follow-up with urology at discharge DVT PPX: Code status: Full code Discharge Plan: Home Plan to discharge in: Greater than 2 days
[2025-04-15] MEDS: AA 4.25 %/D5W/ELECTROLYTES 2,000 ML IV ONE (16:53)
[2025-04-16 05:25] LABS: Absolute Lymphocytes (CBC) 0.8 K/uL (0.7-4.9); Hematocrit 44.3 % (39.6-49.0); Hemoglobin 14.3 g/dL (13.6-17.9); MCH 29.7 pg (27.0-35.0); MCHC 32.4 g/dL (32.0-36.0); MCV 91.7 fL (80-100); MPV 9.2 fL (7.6-11.3); Nucleated RBC Absolute Count 0.0 (0-0); Nucleated Red Blood Cells % 0.0 % (0-0); RBC Red Blood Cell Count 4.83 M/uL (4.33-5.43); White Blood Count 9.20 thou/uL (4.3-10.9)
[2025-04-16 05:32] LABS: Albumin 2.3 g/dL (3.4-5.0); Albumin/Globulin Ratio 0.6 (1.1-1.8); Alkaline Phosphatase 51 U/L (45-117); Anion Gap 5.9 mEq/L (5.0-15.0); BUN Blood Urea Nitrogen 43 mg/dL (7-18); Globulin 3.8 g/dL (2.3-3.5); Glucose Level 141 mg/dL (74-106); Magnesium 2.2 mg/dL (1.6-2.4); Potassium 3.9 mEq/L (3.5-5.1)
[2025-04-16 05:34] LABS: ALT/SGPT < 14 U/L (16-61); AST/SGOT < 10 U/L (15-37)
[2025-04-16] MEDS: KCL 20 MEQ/100 mL IVPB 20 MEQ/100 ML BAG IV SCH (06:00)
[2025-04-16] MEDS: FUROSEMIDE 20 MG/ 2ML VIAL IV SCH (10:05)
--- NOTE | 2025-04-16 10:40 | P.PN ---
Subjective Date of Service: 04/16/25 Chief Complaint: SBO, new A-fib Subjective: No new changes Review of Systems 10-point ROS is otherwise unremarkable Physical Examination - Vital Signs Temperature: 98.2 F Blood Pressure: 139/81 Pulse: 102 Respirations: 14 Pulse Ox (%): 99 - Physical Exam General: Alert, In no apparent distress HEENT: Atraumatic, PERRLA, EOMI Neck: Supple, JVD not distended Respiratory: Clear to auscultation bilaterally, Normal air movement Cardiovascular: Regular rate/rhythm, Normal S1 S2 Gastrointestinal: Normal bowel sounds, No tenderness Musculoskeletal: No tenderness Integumentary: No rashes Neurological: Normal speech, Normal tone, Normal affect Lymphatics: No axilla or inguinal lymphadenopathy - Studies Medications List Reviewed: Yes Assessment And Plan - Current Problems (Diagnosis) (1) Atrial fibrillation Current Visit: Yes Status: Acute Plan: Patient is currently in AF, rate controlled, he is off any medications, as he is NPO except ice chips. continue to monitor on tele resume lopressor 25 mg po BID once cleared from surgery for PO intake. patient will also need to be on anticoagulation once cleared from surgery team.
--- NOTE | 2025-04-16 12:19 | P.PN ---
Date of Service: 04/16/25 Subjective Awake and conversing well, reports feeling better Downgrade to the Floor today ROS: 10 point ROS as noted above, otherwise negative Physical exam GEN: AAO x3, NAD HEENT: Normal conjunctiva, sclera anicteric CV: A-fib, mild tachycardia, 1+ pitting edema lower extremities bilaterally Pulm: Symmetrical chest wall movement, ABD: Soft and tender on palpation MSK: No joint tenderness Integumentary: No rashes Neuro: Normal speech, normal affect Vitals reviewed Assessment: SBO Cirrhosis of the liver New onset A-fib Chronic diastolic congestive heart failure History of CAD Hypertension Chronic Boateng catheter Plan: SBO Cirrhosis of the liver CLD started today, continues on Small bowel series performed 8/3 AM shows persistent small bowel obstruction NG tube in place General Surgery, Dr. Edge, following Multiple hernias present, possibly secondary to hernias continue PPN Continue Zosyn Atrial fibrillation on chronic anticoagulation Acute on chronic systolic congestive heart failure History of CAD Cardiology consulted, no further intervention before surgery External chart review, patient has history of A-fib Also had cardiac evaluation with echocardiogram during hospitalization in January which showed EF of around 35% Imaging from that hospitalization also showed a coronary stent in place HR fluctuating Hypertension Continue home medications when verified Chronic Boateng catheter Boateng catheter has been in place for around 2 months Needs to be exchanged but patient stating he will not allow us to put back if removed Will still need outpatient follow-up with urology at discharge DVT PPX: Code status: Full code Discharge Plan: Home Plan to discharge in: Greater than 2 days Time Spent Managing Pts Care (In Minutes): 35
[2025-04-16] MEDS ORDERED: ENOXAPARIN 40 MG/0.4 ML SQ SCH (17:00)
[2025-04-16] MEDS: APIXABAN 5 MG TABLET PO SCH (20:51)
[2025-04-16] MEDS: HYDRALAZINE HCL 20 MG/ML VIAL IV PRN (22:17)
[2025-04-17] MEDS: PHENOL 1.4% ORAL SPRAY 180ML MM PRN (00:30)
[2025-04-17 05:58] LABS: Absolute Lymphocytes (CBC) 1.0 K/uL (0.7-4.9); Hematocrit 43.9 % (39.6-49.0); Hemoglobin 14.3 g/dL (13.6-17.9); MCH 29.8 pg (27.0-35.0); MCHC 32.6 g/dL (32.0-36.0); MCV 91.4 fL (80-100); MPV 9.1 fL (7.6-11.3); Nucleated RBC Absolute Count 0.0 (0-0); Nucleated Red Blood Cells % 0.0 % (0-0); RBC Red Blood Cell Count 4.80 M/uL (4.33-5.43); White Blood Count 9.40 thou/uL (4.3-10.9)
[2025-04-17 06:13] LABS: AST/SGOT 11 U/L (15-37); Albumin 2.3 g/dL (3.4-5.0); Albumin/Globulin Ratio 0.6 (1.1-1.8); Alkaline Phosphatase 51 U/L (45-117); Anion Gap 5.9 mEq/L (5.0-15.0); BUN Blood Urea Nitrogen 39 mg/dL (7-18); Globulin 4.1 g/dL (2.3-3.5); Glucose Level 137 mg/dL (74-106); Potassium 3.9 mEq/L (3.5-5.1)
[2025-04-17 06:14] LABS: ALT/SGPT < 14 U/L (16-61)
[2025-04-17 06:24] LABS: Magnesium 2.1 mg/dL (1.6-2.4)
[2025-04-17] MEDS: KCL 20 MEQ/100 mL IVPB 20 MEQ/100 ML BAG IV SCH (06:36)
[2025-04-17] MEDS ORDERED: METOPROLOL XL 100 MG TAB PO SCH (09:00)
[2025-04-17] MEDS: POTASS/SODIUM PHOSPHATE 1 PKT POWD.PACK PO SCH (09:19)
[2025-04-17] MEDS: ASPIRIN EC 81 MG TAB PO SCH (09:19)
[2025-04-17] MEDS: ATORVASTATIN 10 MG TAB PO SCH (09:19)
[2025-04-17] MEDS: TAMSULOSIN 0.4 MG SR CAP PO SCH (09:19)
--- NOTE | 2025-04-17 11:57 | P.PN ---
Subjective Date of Service: 04/17/25 Chief Complaint: SBO, bowel resection Subjective: Tolerating diet, Improving Review of Systems General: Unremarkable Eyes: Unremarkable ENT: Unremarkable Respiratory: Unremarkable Cardiovascular: Unremarkable Gastrointestinal: Unremarkable Genitourinary: As per HPI Integumentary: Unremarkable Physical Examination - Vital Signs Temperature: 98.3 F Blood Pressure: 126/77 Pulse: 89 Respirations: 16 Pulse Ox (%): 98 - Physical Exam General: Alert, In no apparent distress, Oriented x3, Cooperative HEENT: PERRLA, EOMI Neck: Supple Cardiovascular: Normal pulses Gastrointestinal: Normal bowel sounds, Soft and benign Musculoskeletal: No erythema, No tenderness, No warmth Integumentary: No rashes, No breakdown, No erythema, No warmth, No cyanosis Neurological: Normal speech - Studies Medications List Reviewed: Yes Assessment And Plan - Plan advance diet wean TPN Pt came with a mota from another institution with no specific reason fot it. Consider consulting Urology to see if it can be removed ambulate
--- NOTE | 2025-04-17 12:39 | P.PN ---
Subjective Date of Service: 04/17/25 Chief Complaint: SBO, bowel resection Subjective: No new changes, No C/O voiced, Tolerating diet, Ambulating, Improving Review of Systems 10-point ROS is otherwise unremarkable Physical Examination - Vital Signs Temperature: 98.3 F Blood Pressure: 126/77 Pulse: 89 Respirations: 16 Pulse Ox (%): 98 - Physical Exam General: Alert, In no apparent distress HEENT: Atraumatic, PERRLA, EOMI Neck: Supple, JVD not distended Respiratory: Clear to auscultation bilaterally, Normal air movement Cardiovascular: Normal S1 S2, Irregular heart rate/rhythm Gastrointestinal: Normal bowel sounds, No tenderness Musculoskeletal: No tenderness Integumentary: No rashes Neurological: Normal speech, Normal tone, Normal affect Lymphatics: No axilla or inguinal lymphadenopathy - Studies Medications List Reviewed: Yes Assessment And Plan - Current Problems (Diagnosis) (1) Atrial fibrillation Current Visit: Yes Status: Acute Plan: Patient is currently in AF, rate controlled, he is off any medications, as he is NPO except ice chips. continue to monitor on tele continue lopressor 50 mg po BID Eliquis 5 mg po BID was started, monitor for bleeding.
--- NOTE | 2025-04-17 19:30 | P.PN ---
Date of Service: 04/17/25 Subjective Advancing diet Good urine output no new complaints ROS: 10 point ROS as noted above, otherwise negative Physical exam GEN: AAO x3, NAD HEENT: Normal conjunctiva, sclera anicteric CV: A-fib HR controlled, 1+ pitting edema lower extremities bilaterally Pulm: Symmetrical chest wall movement, on 2 LNC ABD: Soft and tender on palpation, normal active Bowel sounds MSK: No joint tenderness Integumentary: No rashes Neuro: Normal speech, normal affect Vitals reviewed Assessment: SBO Cirrhosis of the liver New onset A-fib Chronic diastolic congestive heart failure History of CAD Hypertension Chronic Boateng catheter Plan: SBO Cirrhosis of the liver CLD started today, continues on Small bowel series performed 8/3 AM shows persistent small bowel obstruction NG tube in place General Surgery, Dr. Edge, following Multiple hernias present, possibly secondary to hernias continue PPN Continue Zosyn advancing diet per Minesh Atrial fibrillation on chronic anticoagulation Acute on chronic systolic congestive heart failure History of CAD Cardiology consulted, no further intervention before surgery External chart review, patient has history of A-fib Also had cardiac evaluation with echocardiogram during hospitalization in January which showed EF of around 35% Imaging from that hospitalization also showed a coronary stent in place Hypertension Continue home medications when verified Chronic Boateng catheter Boateng catheter has been in place for around 2 months Needs to be exchanged but patient stating he will not allow us to put back if removed Will still need outpatient follow-up with urology at discharge DVT PPX: eliquis Code status: Full code Discharge Plan: Home Plan to discharge in: Greater than 2 days Time Spent Managing Pts Care (In Minutes): 32
[2025-04-17] MEDS: METOPROLOL TAR 50 MG TAB PO SCH (20:51)
[2025-04-17] MEDS: ENSURE HIGH PROTEIN 237 ML CAN PO SCH (20:53)
[2025-04-18] MEDS: NA CHLORIDE 0.9% 100 ML ONE (01:58)
[2025-04-18] MEDS: PIPERACIL/TAZO 3.375 GM VIAL IV ONE (01:58)
[2025-04-18 05:38] LABS: Absolute Lymphocytes (CBC) 0.7 K/uL (0.7-4.9); Hematocrit 41.4 % (39.6-49.0); Hemoglobin 13.6 g/dL (13.6-17.9); MCH 29.9 pg (27.0-35.0); MCHC 32.9 g/dL (32.0-36.0); MCV 90.9 fL (80-100); MPV 8.7 fL (7.6-11.3); Nucleated RBC Absolute Count 0.0 (0-0); Nucleated Red Blood Cells % 0.0 % (0-0); RBC Red Blood Cell Count 4.55 M/uL (4.33-5.43); White Blood Count 9.60 thou/uL (4.3-10.9)
[2025-04-18 05:55] LABS: ALT/SGPT < 14 U/L (16-61); AST/SGOT 16 U/L (15-37); Albumin 2.2 g/dL (3.4-5.0); Albumin/Globulin Ratio 0.6 (1.1-1.8); Alkaline Phosphatase 77 U/L (45-117); Anion Gap 5.7 mEq/L (5.0-15.0); BUN Blood Urea Nitrogen 40 mg/dL (7-18); Globulin 3.9 g/dL (2.3-3.5); Glucose Level 119 mg/dL (74-106); Potassium 3.7 mEq/L (3.5-5.1)
[2025-04-18] MEDS: POTASSIUM CL SA 10 MEQ TAB PO ONE (14:18)
--- NOTE | 2025-04-18 15:33 | P.PN ---
Subjective Date of Service: 04/18/25 Chief Complaint: SBO, bowel resection Subjective: No new changes Review of Systems 10-point ROS is otherwise unremarkable Physical Examination - Vital Signs Temperature: 98.1 F Blood Pressure: 119/59 Pulse: 84 Respirations: 20 Pulse Ox (%): 97 - Physical Exam General: Alert, In no apparent distress HEENT: Atraumatic, PERRLA, EOMI Neck: Supple, JVD not distended Respiratory: Clear to auscultation bilaterally, Normal air movement Cardiovascular: Regular rate/rhythm, Normal S1 S2 Gastrointestinal: Normal bowel sounds, No tenderness Musculoskeletal: No tenderness Integumentary: No rashes Neurological: Normal speech, Normal tone, Normal affect Lymphatics: No axilla or inguinal lymphadenopathy - Studies Medications List Reviewed: Yes Assessment And Plan - Current Problems (Diagnosis) (1) Atrial fibrillation Current Visit: Yes Status: Acute Plan: Patient is currently in AF, rate controlled, he is off any medications, continue to monitor on tele continue lopressor 50 mg po BID Eliquis 5 mg po BID. Cardiology will sign off, please call with any questions.
--- NOTE | 2025-04-18 16:59 | P.PN ---
Subjective Date of Service: 04/18/25 Chief Complaint: SBO, bowel resection Subjective: Tolerating diet, Ambulating, Improving Review of Systems General: Unremarkable Eyes: Unremarkable ENT: Unremarkable Respiratory: Unremarkable Cardiovascular: Unremarkable Gastrointestinal: Unremarkable Genitourinary: Unremarkable Musculoskeletal: Unremarkable Integumentary: Unremarkable Neurological: Unremarkable Physical Examination - Vital Signs Temperature: 98.0 F Blood Pressure: 132/76 Pulse: 85 Respirations: 20 Pulse Ox (%): 93 - Physical Exam General: Alert, In no apparent distress, Oriented x3, Cooperative HEENT: PERRLA, EOMI Neck: Supple Respiratory: Clear to auscultation bilaterally, Normal air movement Cardiovascular: Normal pulses Gastrointestinal: Soft and benign Musculoskeletal: No erythema, No tenderness, No warmth Integumentary: No rashes, No breakdown Neurological: Normal gait, Normal speech, Cranial nerves 3-12 intact Urinary: Mota catheter - Studies Medications List Reviewed: Yes Assessment And Plan - Plan advance diet came with a mota from another institution with no specific reason for it. Consider d/c ambulate f/u in my office in a week
[2025-04-18 20:19] VITALS: O2SAT 99
--- NOTE | 2025-04-18 20:45 | P.PN ---
Date of Service: 04/18/25 Subjective Awake doing well DC mota and voiding trial Regular diet likely discharge in the AM ROS: 10 point ROS as noted above, otherwise negative Physical exam GEN: Oriented x3, NAD HEENT: Normal conjunctiva, sclera anicteric CV: A-fib HR controlled, 1+ pitting edema lower extremities bilaterally Pulm: nonlabored breathing, on 2 LNC ABD: Soft and tender on palpation, normal active Bowel sounds MSK: No joint tenderness Integumentary: No rashes Neuro: Normal speech, normal affect Vitals reviewed Assessment: SBO Cirrhosis of the liver New onset A-fib Chronic diastolic congestive heart failure History of CAD Hypertension Chronic Mota catheter Plan: SBO Cirrhosis of the liver Regular diet Small bowel series performed 04/13 AM shows persistent small bowel obstruction NG tube removed General Surgery, Dr. Edge, following Multiple hernias present, possibly secondary to hernias PPN stopped, advanced diet Continue Zosyn advancing diet per Minesh Atrial fibrillation on chronic anticoagulation Acute on chronic systolic congestive heart failure History of CAD Cardiology consulted, no further intervention before surgery External chart review, patient has history of A-fib Also had cardiac evaluation with echocardiogram during hospitalization in January which showed EF of around 35% Imaging from that hospitalization also showed a coronary stent in place Hypertension Continue home medications when verified Chronic Mota catheter Mota catheter has been in place for around 2 months Needs to be exchanged but patient stating he will not allow us to put back if re moved Will still need outpatient follow-up with urology at discharge DVT PPX: eliquis Code status: Full code Discharge Plan: Home Plan to discharge in: Greater than 2 days Time Spent Managing Pts Care (In Minutes): 36
[2025-04-19 04:58] VITALS: BMI 28.8
[2025-04-19 06:57] LABS: Anion Gap 6.5 mEq/L (5.0-15.0); BUN Blood Urea Nitrogen 37.0 mg/dL (7-18); Glucose Level 108.0 mg/dL (74-106); Magnesium 2.0 mg/dL (1.6-2.4); Potassium 3.5 mEq/L (3.5-5.1)
[2025-04-19 11:55] VITALS: BP 110/60; TEMP 97.1
--- NOTE | 2025-04-19 14:40 | P.DS ---
Admission Date: 04/11/25 Discharge Date: 04/19/25 Disposition: DC HOME/HOME HEALTH CARE Discharge Condition: GOOD Reason for Admission: SBO, bowel resection Brief History of Present Illness: Diagnosis SBO Cirrhosis of the liver New onset A-fib Chronic diastolic congestive heart failure History of CAD Hypertension Chronic Mota catheter HPI 04/11/2025 Patient presented to the hospital after being referred here by his general surgeon. A few months ago he was transferred to [facility] for decompensated cirrhosis, CHF exacerbation, spent over a week in the hospital there, was discharged with a Mota catheter in place and instructed follow-up with GI, general surgery, urology. Patient and family are very poor historians, they did follow-up with GI around 2 days ago and were sent to the general surgeon Dr. Edge for evaluation of the hernias, Dr. Edge noted that his abdomen was distended and sent him for a CT scan today outpatient which showed moderately severe mechanical small bowel obstruction as detailed. Mild free fluid in the abdomen and pelvis. Patient was then referred to the hospital for evaluation and admission. Patient was evaluated here in the emergency department his labs were significant for a sodium of 130 chloride 95 BNP of 13,319 troponin 24.6 with blood cell count 8 hemoglobin 16.4 INR 1.16 LFTs within normal limits, T. bili 1.1. NGT was inserted, patient was seen by general surgeon in the ED he will need to be admitted for further management. He was also noted that patient was in new onset atrial fibrillation. He had echocardiogram performed 03/28/2023 which showed mild tricuspid regurgitation, normal LVEF, grade 1 diastolic dysfunction. He does have edema of the lower extremities. Chest x-ray performed today showed bilateral pulmonary opacities present greater than left likely representing pulmonary edema or pneumonia, but heart is moderately enlarged, no displaced fractures. Hospital Course: Patient was admitted and treated for the following diagnosis: SBO Cirrhosis of the liver Patient was treated for small bowel obstruction with NG tube and n.p.o. status. Dr. Edge was consulted who performed exploratory laparotomy, small bowel resection with anastomosis, extensive intra-abdominal adhesions, and open repair of incisional incarcerated ventral hernia. Patient tolerated diet advancement. Atrial fibrillation on chronic anticoagulation Acute on chronic systolic congestive heart failure History of CAD Patient has a history of atrial fibrillation Cardiology was consulted and determined no further evaluation needed. Continued home medications such as metoprolol, Eliquis, atorvastatin, and aspirin. External hospital reports shows an echo with a EF of 35%, history of atrial fibrillation, and coronary stent placed. Hypertension Continue home medications when verified Chronic Mota catheter Patient reports he is mota catheter has been in place for around 2 months and he will not allow the catheter to be exchanged. Patient will need outpatient follow-up with urology at discharge Ag was seen on morning rounds and deemed hemodynamically stable. Dr. Vincent and Dr. Edge have evaluated him this morning and cleared him for discharge. He will be discharged home with family support and home health. Physical exam GEN: Alert and oriented x3 HEENT: Normal conjunctiva, sclera anicteric CV: A-fib HR controlled, 1+ pitting edema lower extremities bilaterally Pulm: nonlabored breathing, on 2 LNC ABD: Soft and tender on palpation, normal active Bowel sounds MSK: No joint tenderness Integumentary: No rashes Neuro: Normal speech, normal affect Vital Signs/Physical Exam: Temp Pulse Resp BP Pulse Ox 97.1 F 90 18 110/60 90 L 04/19/25 11:53 04/19/25 11:53 04/19/25 11:53 04/19/25 11:53 04/19/25 11:53 Laboratory Data at Discharge: WBC 9.60 thou/uL (4.3-10.9) 04/18/25 05:27 Hgb 13.6 g/dL (13.6-17.9) 04/18/25 05:27 Hct 41.4 % (39.6-49.0) 04/18/25 05:27 Plt Count 193 thou/uL (152-406) 04/18/25 05:27 PT 14.8 SECONDS (10-13.0) H 04/14/25 04:06 INR 1.32 04/14/25 04:06 APTT 114.1 SECONDS (27.2-37.4) H 04/14/25 07:16 Sodium 136 mEq/L (136-145) 04/19/25 06:10 Potassium 3.5 mEq/L (3.5-5.1) 04/19/25 06:10 BUN 37 mg/dL (7-18) H 04/19/25 06:10 Creatinine 1.30 mg/dL (0.70-1.30) 04/19/25 06:10 Glucose 108 mg/dL (74-106) H 04/19/25 06:10 Phosphorus 2.1 mg/dL (2.5-4.9) L 04/19/25 06:10 Magnesium 2.0 mg/dL (1.6-2.4) 04/19/25 06:10 Total Bilirubin 1.0 mg/dL (0.2-1.0) 04/18/25 05:27 AST 16 U/L (15-37) 04/18/25 05:27 ALT < 14 U/L (16-61) L 04/18/25 05:27 Alkaline Phosphatase 77 U/L (45-117) D 04/18/25 05:27 Lipase 26 U/L (13-75) 04/11/25 16:09 Home Medications: Apixaban [Eliquis] 5 mg PO BID 04/16/25 Aspirin 81 mg PO DAILY 04/16/25 Atorvastatin Calcium 10 mg PO DAILY 04/16/25 Tamsulosin [Flomax*] 1 cap PO DAILY 04/16/25 Amox/Clavulanate [Augmentin 875-125 Tab] 875 mg PO BID 5 Days #10 tab 04/19/25 Apixaban [Eliquis] 5 mg PO BID 04/19/25 Ensure High Protein 237 ml PO BID can 04/19/25 Metoprolol Tartrate [Lopressor*] 50 mg PO BID 30 Days #60 tab 04/19/25 New Medications: Amox/Clavulanate [Augmentin 875-125 Tab] 875 mg PO BID 5 Days #10 tab Metoprolol Tartrate [Lopressor*] 50 mg PO BID 30 Days #60 tab Physician Discharge Instructions: 1. Please call and schedule a follow-up appointment with your PCP in 3-5 days - Please follow-up with your PCP for medication refills/adjustments 2. Please call and schedule a follow-up appointment with Dr. Edge in 3-5 days 3. Please call and schedule follow-up appointment with Dr. Vincent in 1 week 3. Continue heart healthy diet 4. activity restrictions do not lift greater than 10 pounds 5. Return to the ED if symptoms worsen New medications Lopressor 50 mg twice daily x 30 days Augmentin 875 mg twice daily x 5 days Home health with [facility] and physical therapy will be arranged Diet: AHA Activity: Fall precautions Followup: Diego Edge MD [ACTIVE - CAN ADMIT] - JENNIFER JUAREZ [Primary Care Provider] -
== END 2025-04-19 14:52 | disposition home health service (06) | DRG 329 ==
LOC: ER 14:20 → ERHOLD 17:34 → 4TH 18:58 → 3RD-ICU 04-14 15:25 → 2ND 04-17 18:40
PROVIDERS: ADMIT Hospitalist; ATTEND Internal Medicine
PROC: 02HV33Z Insertion of Infusion Device into Superior Vena Cava, Percutaneous Approach (ICD-10-PCS; 2025-04-11)
PROC: 0DH67UZ Insertion of Feeding Device into Stomach, Via Natural or Artificial Opening (ICD-10-PCS; 2025-04-13)
PROC: 0DN80ZZ Release Small Intestine, Open Approach (ICD-10-PCS; 2025-04-14)
PROC: 0WQF0ZZ Repair Abdominal Wall, Open Approach (ICD-10-PCS; 2025-04-14)
PROC: 3E0436Z Introduction of Nutritional Substance into Central Vein, Percutaneous Approach (ICD-10-PCS; 2025-04-14)
PROC: 0T9B70Z Drainage of Bladder with Drainage Device, Via Natural or Artificial Opening (ICD-10-PCS; 2025-04-14)
PROC: 0DB80ZZ Excision of Small Intestine, Open Approach (ICD-10-PCS; principal; 2025-04-14 12:15)
DX: K43.6 Other and unspecified ventral hernia with obstruction, without gangrene (principal); I50.23 Acute on chronic systolic (congestive) heart failure; I11.0 Hypertensive heart disease with heart failure; I48.91 Unspecified atrial fibrillation; K59.00 Constipation, unspecified; I25.2 Old myocardial infarction; K74.60 Unspecified cirrhosis of liver; I25.10 Atherosclerotic heart disease of native coronary artery without angina pectoris; Z90.3 Acquired absence of stomach [part of]; Z85.46 Personal history of malignant neoplasm of prostate; Z85.028 Personal history of other malignant neoplasm of stomach
CPT/HCPCS: 36415; 71045; 74018; 74250; 80048; 80053; 82947; 83690; 83735; 83880; 84100; 84484; 85025; 85610; 85730; 88305; 88307; 93005; 94010; 94760; 97116; 97161; 97530; 99285; J0330; J0360; J1171; J1644; J1938; J2003; J2270; J2405; J2543; J2550; J2704; J2710; J3010; J3475; J3480; J7120; J7799; P9045